=== PATIENT | female | born 1970 | race Caucasian/White ===

== ENCOUNTER 2020-08-23 16:12 | Inpatient (IN) | payer OTHER, SELFPAY ==
[2020-08-23 16:27] VITALS: BP 138/92; BP 151/91; PULSE 107; PULSE 99; RESP 28; TEMP 36.8; O2SAT 100; O2SAT 97; BMI 35.3
--- NOTE | 2020-08-23 16:34 | ECG_ITS ---
Test Reason : SOB Blood Pressure : / mmHG Vent. Rate : 099 BPM Atrial Rate : 099 BPM P-R Int : 164 ms QRS Dur : 080 ms QT Int : 310 ms P-R-T Axes : 065 044 083 degrees QTc Int : 397 ms Normal sinus rhythm Normal ECG No previous ECGs available Referred By: Zunilda Pinto Electronically Signed By:CARMINE CONNELLY MD
--- NOTE | 2020-08-23 16:34 | XR_ITS ---
EXAMINATION: XR CHEST CLINICAL INFORMATION: Shortness of breath COMPARISON: Chest x-ray 08/01/2011 TECHNIQUE: Frontal view of the chest was obtained. FINDINGS: Cardiac silhouette is normal in size. The lungs are well aerated. There is no lobar consolidation. No pleural effusion or pneumothorax. Fusion hardware of the cervical spine. XR/XR chest 1V IMPRESSION: No acute pulmonary pathology.
--- NOTE | 2020-08-23 16:37 | ED.URI ---
HPI - URI/Sore Throat General Chief Complaint: Upper Respiratory Symptoms Stated Complaint: sobweakness Time Seen by Provider: 08/23/20 16:23 Source: patient Mode of arrival: ambulatory Limitations: no limitations History of Present Illness HPI Narrative: Patient comes to emergency room complaining of weight loss, shortness of breath, abdominal pain. Patient states she has been having shortness of breath for a day. patient states all of her symptoms have gradually been getting worse since November. Unfortunately, November of this year patient's filudine . per EMS, all her vitals were stable on arrival, at this time 100% O2 sat . Patient states that she is compliant with her medication, patient takes Trulicity, insulin, and Jardiance (empagliflozin). patient states she recently had to switch primary care physicians, and she was unable to get any medicine for the last 4 days Related Data Home Medications Medication Instructions Recorded Confirmed Amitex 08/23/20 Jardiance 08/23/20 08/23/20 metformin 08/23/20 Allergies Allergy/AdvReac Type Severity Reaction Status Date / Time baclofen [BACLOFEN] Allergy Unknown CAN'T Unverified 06/25/20 15:31 STAND, MEMORY LOSS, memory loss lisinopril Allergy Unknown increased Verified 05/26/20 00:00 creatinine? Baclofen Allergy Unknown mental Uncoded 05/26/20 00:00 status Review of Systems Review of Systems: Constitutional : No Weight loss, No Fever, No Chills, No Night Sweats, No Fatigue, No Malaise, decreased p.o. intake history ENT/Mouth : No Hearing loss, No Ear Pain, No Nasal Congestion, No Sinus Pain, No Hoarseness, No sore throat, No Rhinorrhea, No Swallowing Difficulty Eyes: No Eye Pain, No Swelling, No Redness, No Foreign Body, No Discharge, No Vision Changes Cardiovascular : No Chest Pain, No SOB, No Dyspnea on Exertion, No Orthopnea, No Edema, No Palpitations Respiratory : No Cough, No Sputum, No Wheezing, No Smoke Exposure, patient complaining feeling short of breath Gastrointestinal : No Nausea, No Vomiting, No Diarrhea, No Constipation, No abdominal Pain, No Hematochezia, No Melena Genitourinary : no irregular bleeding, No Dysuria, No Urinary Frequency, No Hematuria, No Urinary Incontinence, No Urgency, No Flank Pain, No Urinary Flow Changes, No Hesitancy Musculoskeletal : No joint pain, No Myalgias, No Joint Swelling Skin : No Skin Lesions, No rash Neuro : No Weakness, No Numbness, No Paresthesias, No Loss of Consciousness, No Dizziness, No Headache Psych : No Anxiety/Panic, No Depression, No SI/HI/AH/VH, No Social Issues, Heme/Lymph: No Bruising, No Bleeding,No Lymphadenopathy Endocrine : No Polyuria, No Polydipsia, No Temperature Intolerance [facility] Past Medical History Medical History Arthritis Diabetes mellitus, type 2 Sleep apnea Surgical History (Updated 08/23/20 @ 16:33 by Lenny Young) Hx laparoscopic cholecystectomy Social History Social History Smoked in Last 30 Days: No Use of substances other than those prescribed or required for medical reasons: No Advance Directives: No Advance Directives Information Provided: Yes Physical Exam Vital Signs: Vital Signs: Last Vital Signs Temp 98.3 F 08/23/20 16:27 Pulse 92 08/23/20 17:30 Resp 25 H 08/23/20 17:30 BP 167/92 H 08/23/20 17:30 Pulse Ox 100 08/23/20 17:30 Body Mass Index 35.3 Appearance: Alert. Oriented X3. No acute distress, seems anxious Eyes: Pupils equal, round and reactive to light. ENT: Pharynx normal. Neck: Normal inspection. Neck supple. No lymph nodes noted. No crepitus CVS: Normal heart rate and rhythm. Pulses normal. Normal S1 and S2 Respiratory: No respiratory distress. Breath sounds normal. No Wheezing. No rales Abdomen: Soft and nontender. No rigidity. No distention. good BS x4 Skin: Skin warm and dry. Normal skin color. Normal skin turgor. Extremities: No lower extremity edema. No lower extremity edema. No Lacerations. No Rash Neuro: Oriented X 3. No motor deficit. No sensory deficit. Moving all extermities. No slurred speech. Course Course Course Narrative: discussed the labs with the patient, patient is in diabetic ketoacidosis. White blood cell count is 14.8, lactic acid 1.2, sepsis is not suspected. I discussed the patient with Dr. Mcfadden, patient is being admitted to the intensive care unit. MDM - URI/Sore Throat Lab Data Result diagrams: 08/23/20 16:50 08/23/20 16:50 Labs: Lab Results 08/23/20 08/23/20 08/23/20 Range/Units 16:50 16:50 16:50 WBC 14.8 H (4.8-10.8) X10*3/uL RBC 5.63 H (4.20-5.50) X10*6/uL Hgb 15.6 (12.0-16.0) g/dl Hct 48.3 H (37-47) % MCV 85.8 (80-98) fL MCH 27.7 (27.0-33.0) pg MCHC 32.3 (31.0-35.0) g/dl RDW 15.5 (11.0-16.0) % Plt Count 399 (160-400) X10*3/uL MPV 8.6 L (9.4-12.3) fL Immature Gran % (Auto) 1.1 H (0.0-0.4) % Neut % (Auto) 83.4 H (45-73) % Lymph % (Auto) 9.4 L (20-40) % [place] % (Auto) 5.9 (2-11) % Eos % (Auto) 0.0 (0-4) % Baso % (Auto) 0.2 (0-2) % Lymph # (Auto) 1.4 (1.2-4.9) X10*3/uL [place] # (Auto) 0.9 (0.1-1.2) X10*3/uL Eos # (Auto) 0.0 (0.0-0.4) X10*3/uL Baso # (Auto) 0.0 (0.0-0.2) X10*3/uL Abs Immat Gran (auto) 0.17 H (0.00-0.03) X10*3/uL Absolute Neuts (auto) 12.4 H (2.0-8.3) X10*3/uL Absolute Nucleated RBC 0.000 (0.0-0.012) X10*3/uL Nucleated RBC % (auto) 0.0 (0.0-0.2) /100WBC D-Dimer NG/ML ABG pH (7.35-7.45) ABG pCO2 (32-45) mmhg ABG pO2 (83-108) mmhg ABG HCO3 (22-26) mmol/l ABG O2 Saturation % ABG Base Excess Oxygen Given Sodium Cancelled Potassium Cancelled Chloride Cancelled Carbon Dioxide Cancelled Anion Gap Cancelled BUN Cancelled Creatinine Cancelled Estim Creat Clear Calc Cancelled Estimated GFR Cancelled Random Glucose Cancelled Lactic Acid (0.5-2.0) mmol/L Calcium Cancelled Troponin I High Sens 4.3 (<3.5-17.0) ng/L Lipase (8-78) U/L Salicylates (15-30) mg/dL Acetone, Qual (Negative) COVID-19 (DEA) (Negative) COVID-19 Clin Com 08/23/20 08/23/20 08/23/20 Range/Units 16:50 16:50 16:50 WBC (4.8-10.8) X10*3/uL RBC (4.20-5.50) X10*6/uL Hgb (12.0-16.0) g/dl Hct (37-47) % MCV (80-98) fL MCH (27.0-33.0) pg MCHC (31.0-35.0) g/dl RDW (11.0-16.0) % Plt Count (160-400) X10*3/uL MPV (9.4-12.3) fL Immature Gran % (Auto) (0.0-0.4) % Neut % (Auto) (45-73) % Lymph % (Auto) (20-40) % [place] % (Auto) (2-11) % Eos % (Auto) (0-4) % Baso % (Auto) (0-2) % Lymph # (Auto) (1.2-4.9) X10*3/uL [place] # (Auto) (0.1-1.2) X10*3/uL Eos # (Auto) (0.0-0.4) X10*3/uL Baso # (Auto) (0.0-0.2) X10*3/uL Abs Immat Gran (auto) (0.00-0.03) X10*3/uL Absolute Neuts (auto) (2.0-8.3) X10*3/uL Absolute Nucleated RBC (0.0-0.012) X10*3/uL Nucleated RBC % (auto) (0.0-0.2) /100WBC D-Dimer NG/ML ABG pH (7.35-7.45) ABG pCO2 (32-45) mmhg ABG pO2 (83-108) mmhg ABG HCO3 (22-26) mmol/l ABG O2 Saturation % ABG Base Excess Oxygen Given Sodium 127 L Potassium 4.2 Chloride 102 Carbon Dioxide 5 L* Anion Gap 24 H BUN 11 Creatinine 1.51 H Estim Creat Clear Calc 44.5 Estimated GFR 37 Random Glucose 562 H* Lactic Acid (0.5-2.0) mmol/L Calcium 8.5 Troponin I High Sens (<3.5-17.0) ng/L Lipase 166 H (8-78) U/L Salicylates < 5.0 L (15-30) mg/dL Acetone, Qual Moderate H (Negative) COVID-19 (DEA) (Negative) COVID-19 Clin Com 08/23/20 08/23/20 08/23/20 Range/Units 17:59 18:24 19:30 WBC (4.8-10.8) X10*3/uL RBC (4.20-5.50) X10*6/uL Hgb (12.0-16.0) g/dl Hct (37-47) % MCV (80-98) fL MCH (27.0-33.0) pg MCHC (31.0-35.0) g/dl RDW (11.0-16.0) % Plt Count (160-400) X10*3/uL MPV (9.4-12.3) fL Immature Gran % (Auto) (0.0-0.4) % Neut % (Auto) (45-73) % Lymph % (Auto) (20-40) % [place] % (Auto) (2-11) % Eos % (Auto) (0-4) % Baso % (Auto) (0-2) % Lymph # (Auto) (1.2-4.9) X10*3/uL [place] # (Auto) (0.1-1.2) X10*3/uL Eos # (Auto) (0.0-0.4) X10*3/uL Baso # (Auto) (0.0-0.2) X10*3/uL Abs Immat Gran (auto) (0.00-0.03) X10*3/uL Absolute Neuts (auto) (2.0-8.3) X10*3/uL Absolute Nucleated RBC (0.0-0.012) X10*3/uL Nucleated RBC % (auto) (0.0-0.2) /100WBC D-Dimer 377 NG/ML ABG pH (7.35-7.45) ABG pCO2 (32-45) mmhg ABG pO2 (83-108) mmhg ABG HCO3 (22-26) mmol/l ABG O2 Saturation % ABG Base Excess Oxygen Given Sodium Potassium Chloride Carbon Dioxide Anion Gap BUN Creatinine Estim Creat Clear Calc Estimated GFR Random Glucose Lactic Acid 1.2 (0.5-2.0) mmol/L Calcium Troponin I High Sens (<3.5-17.0) ng/L Lipase (8-78) U/L Salicylates (15-30) mg/dL Acetone, Qual (Negative) COVID-19 (DEA) Negative (Negative) COVID-19 Clin Com See Note 08/23/20 Range/Units 19:30 WBC (4.8-10.8) X10*3/uL RBC (4.20-5.50) X10*6/uL Hgb (12.0-16.0) g/dl Hct (37-47) % MCV (80-98) fL MCH (27.0-33.0) pg MCHC (31.0-35.0) g/dl RDW (11.0-16.0) % Plt Count (160-400) X10*3/uL MPV (9.4-12.3) fL Immature Gran % (Auto) (0.0-0.4) % Neut % (Auto) (45-73) % Lymph % (Auto) (20-40) % [place] % (Auto) (2-11) % Eos % (Auto) (0-4) % Baso % (Auto) (0-2) % Lymph # (Auto) (1.2-4.9) X10*3/uL [place] # (Auto) (0.1-1.2) X10*3/uL Eos # (Auto) (0.0-0.4) X10*3/uL Baso # (Auto) (0.0-0.2) X10*3/uL Abs Immat Gran (auto) (0.00-0.03) X10*3/uL Absolute Neuts (auto) (2.0-8.3) X10*3/uL Absolute Nucleated RBC (0.0-0.012) X10*3/uL Nucleated RBC % (auto) (0.0-0.2) /100WBC D-Dimer NG/ML ABG pH 7.17 L* (7.35-7.45) ABG pCO2 12 L* (32-45) mmhg ABG pO2 129 H (83-108) mmhg ABG HCO3 4 L (22-26) mmol/l ABG O2 Saturation 98.8 % ABG Base Excess -21.9 Oxygen Given ROOM AIR Sodium Potassium Chloride Carbon Dioxide Anion Gap BUN Creatinine Estim Creat Clear Calc Estimated GFR Random Glucose Lactic Acid (0.5-2.0) mmol/L Calcium Troponin I High Sens (<3.5-17.0) ng/L Lipase (8-78) U/L Salicylates (15-30) mg/dL Acetone, Qual (Negative) COVID-19 (DEA) (Negative) COVID-19 Clin Com Critical Care Time Critical Care Time Total Critical Care Time: 60 Discharge Plan Discharge Clinical Impression: Diabetic ketoacidosis associated with type 2 diabetes mellitus Patient Disposition: Admitted As Inpatient Prescriptions: No Action Amitex RF: 0 Jardiance RF: 0 metformin RF: 0
[2020-08-23 16:58] LABS: Basophils Percent Auto 0.2 % (0-2); Hematocrit 48.3 % (37-47); Hemoglobin 15.6 g/dl (12.0-16.0); Imm Gran Abs Auto 0.17 X10*3/uL (0.00-0.03); Imm Gran Pct Auto 1.1 % (0.0-0.4); Lymphocytes Absolute Auto 1.4 X10*3/uL (1.2-4.9); Lymphocytes Percent Auto 9.4 % (20-40); MANUAL DIFF FLAG NO; Mean Corpuscular HGB Conc 32.3 g/dl (31.0-35.0); Mean Corpuscular Hemoglobin 27.7 pg (27.0-33.0); Mean Corpuscular Volume 85.8 fL (80-98); Mean Platelet Volume 8.6 fL (9.4-12.3); Monocytes Absolute Auto 0.9 X10*3/uL (0.1-1.2); Monocytes Percent Auto 5.9 % (2-11); Neutrophils Absolute Auto 12.4 X10*3/uL (2.0-8.3); Neutrophils Percent Auto 83.4 % (45-73); Platelet Count 399 X10*3/uL (160-400); Red Blood Count 5.63 X10*6/uL (4.20-5.50); Red Cell Distribution Width 15.5 % (11.0-16.0); White Blood Count 14.8 X10*3/uL (4.8-10.8)
[2020-08-23 17:25] LABS: Troponin-I High Sensitivity 4.3 ng/L (<3.5-17.0)
[2020-08-23 17:30] VITALS: BP 167/92; PULSE 92; RESP 25; O2SAT 100
[2020-08-23 17:52] LABS: Anion Gap 24 (12-20); Blood Urea Nitrogen 11 mg/dL (9-16); Calcium 8.5 mg/dL (8.4-10.2); Carbon Dioxide 5 mmol/L (22-29); Chloride 102 mmol/L (96-108); Creatinine Clr Calc Pharmacy 44.5; Estimated Glomerular Filt Rate 37; Glucose Random 562 mg/dL (60-115); Lipase 166 U/L (8-78); Potassium 4.2 mmol/l (3.3-5.1); Sodium 127 mmol/L (135-145)
[2020-08-23] MEDS: Insulin Regular, Human 100 UNIT/ML 3 ML VIAL 10 UNIT IVPUSH (18:12)
[2020-08-23] MEDS: Sodium Bicarbonate 8.4% 50 MEQ/50 ML VIAL IVPUSH ×2 (18:12→22:34)
[2020-08-23] MEDS: 0.9 % Sodium Chloride 1,000 ML 999 ML IVCONT ×3 (18:13→20:32)
[2020-08-23 18:20] LABS: D Dimer 377 NG/ML
[2020-08-23 18:44] LABS: COVID-19 Test Negative (Negative)
[2020-08-23 19:13] LABS: Acetone, serum QL Moderate (Negative)
[2020-08-23 19:22] LABS: Salicylate < 5.0 mg/dL (15-30)
[2020-08-23 19:34] VITALS: O2SAT 100
[2020-08-23 19:38] LABS: Pt Ventilation O2% ROOM AIR
[2020-08-23 19:40] LABS: Base Excess ABG -21.9; Blood Gas Serial # 5396; HCO3 ABG 4 mmol/l (22-26); Oxygen Saturation ABG 98.8 %; PO2 ABG 129 mmhg (83-108)
[2020-08-23 19:42] LABS: pH ABG 7.17 (7.35-7.45)
[2020-08-23 19:43] LABS: ABG PCO2 12 mmhg (32-45)
[2020-08-23 20:11] LABS: Lactic Acid 1.2 mmol/L (0.5-2.0)
--- NOTE | 2020-08-23 20:16 | PC.NURSE ---
at bedside. Pharm called for Bicarb.
[2020-08-23] MEDS: Insulin Regular/NS 100 UNIT/100 ML PLAST..BAG 7 UNIT IVCONT (20:30)
[2020-08-23] MEDS: oxyCODONE HCl Immed Release 5 MG TABLET PO (20:30)
--- NOTE | 2020-08-23 20:35 | PC.NURSE ---
POC noted to be 297 mg/dl. Per MD Pinto to begin insulin @ 5 units/hr, verified with Delphine Sims RN. Pt also medicated per EMAR with IVF and Roxicodone. Awaiting bicarb from pharm. Pt aware of plan to admit to ICU.
[2020-08-23 20:37] VITALS: BP 140/55; PULSE 90; RESP 28; O2SAT 100
--- NOTE | 2020-08-23 20:37 | PC.NURSE ---
ICU PA at bedside for eval.
--- NOTE | 2020-08-23 20:55 | PC.NURSE ---
BMP and CVD obtained and sent. Sodium bicarb obtained by pharmacy and hung per EMAR. Second IV line established to [facility].
--- NOTE | 2020-08-23 20:58 | P.HPCC_ITS ---
History of Present Illness Date of Service: 08/23/20 Chief Complaint: DKA HPI: Patient with underlying history of migraines, right lens eye surgery, cholecystectomy, diabetes, obesity, presented to the emergency room with complaints of 3 days worth of generalized malaise, fatigue in the form of shortness of breath, ongoing frontal headache, inability to eat and nausea without vomiting. In the emergency room, the patient was noted to have normal vital signs with session of tachypnea, her metabolic workup did reveal low sodium, high blood sugar levels and a blood gas compatible with metabolic acidosis, she does have mother amount of acetone in the urine her anion gap is 24. The patient is in DKA. Patient was started on insulin with a bolus and followed by a trip, she was given bicarbonate and started on IV fluids. Currently the patient remains hemodynamically stable and only complains of a 5/10 frontal headache despite of getting Percocet in the ER. She does have some nausea but has no vomiting, denies any abdominal pain, no chest pain or palpitations, she feels fatigued but denies any cough or sputum production, no fever chills, no genitourinary complaints. ROS: Denies visual changes, lightheadedness or dizziness, no history of seizures or strokes, no history of ear problems, no sore throat, cough or sputum production, denies chest pain, palpitations, no coronary disease, pulmonary disease, no hemoptysis, denies any melena, hematochezia, liver or kidney problems, no dysuria, hematuria, no leg swelling, no history of DVT or PE. She has no travel and has not been contact with anybody with [facility]. All other review of systems negative. Past Medical History: Migraines Diabetes Essential hypertension not on medication at this point Obesity Past Surgical History: Right eye lens replacement surgery Cholecystectomy Family history: Noncontributory Social History: Lives at home with her son, they live in a duplex, there are stairs, she uses a cane. Denies tobacco use ever, no drug use ever, admits to social drinking very small amounts. CODE STATUS: FULL CODE Baseline Functionality: Fully function, performs activities of daily living, uses a cane. Contacts or HCP: Patient's fiancee and son are her contacts Allergies: Baclofen (confusion) Home Medications: Trulicity, Jardiance, metformin unknown doses. PHYSICAL EXAM: VS: 140/55, heart rate 90, respirations 20, O2 sat 100% on room air. ?General: Alert oriented x3 no acute distress. Speaking full sentences. Speech is well articulated, thought process is coherent. Following all commands. ?Skin: Intact, no lesions, edema, erythema, clubbing or cyanosis. No ulcers. ?HEENT: Head is normocephalic, atraumatic, pupils equal round reactive to light accommodation bilaterally. Extraocular movements appear intact. Buccal mucosa is dry, Neck is supple without lymphadenopathy. ?Cardiac: Clear S1-S2, no murmurs rubs or gallops. ?Pulmonary: Clear to auscultation, no wheezes, rales or rhonchi. ?Abdomen: Protuberant, positive bowel sounds in all 4 quadrants. Soft, nontender, no rebound or guarding. ?Musculoskeletal: Moving all 4 extremities upon request a major joints, there is no crepitus or tenderness. The strength is 5/5 bilaterally and throughout all 4 extremities. Gait not assessed at this point. ?Neurologic: As above, cranial nerves 2-12 are grossly intact. No focal de ficits noted. ?Motor strength as above. ?Vascular: 2+ pulses upper and lower extremities distally. ? SIGNIFICANT LABORATORY DATA: White blood cell 14.8, hemoglobin 15.6, hematocrit 48.3 platelet count 399 there is however immature granulocytes. Sodium 127, potassium 4.2, chloride 102, carbon dioxide 5, anion gap 24, BUN 11, creatinine 1.51 (baseline 0.79) random glucose 562, calcium 8.5, lipase 166, salicylates less than 5.0, acetone moderate, but UA is clean. Blood gas shows pH of 7.17, pCO2 of 12, PO2 of 129, HC03 4, base excess-21.9. COVID negative REVIEW OF IMAGES: Chest x-ray shows no acute pulmonary disease. EKG REVIEW: Sinus rhythm ventricular rate 99 beats per minute. No ST elevations, no depressions. QTC 397. There is slight T-wave inversion in aVL, age undetermined changes. No comparison. ASSESSMENT AND PLAN: 1. Acute DKA 2. Clinical dehydration and hemoconcentration 3. Metabolic acidosis due to 1. 4. Acute kidney injury in the setting of dehydration 5. Chronic migraine headaches, perhaps exacerbated by 1. 6. Reactive elevated lipase without epigastric abdominal complain 7. Stable essential hypertension 8. Pseudo hyponatremia due to hyperglycemia. Admit to ICU, I's and O's, vital signs, insulin drip, once blood sugar drops below 250, will switch to D5 half-normal saline, she will receive bicarbonate drip, repeat chemistries every 4 hours and replace potassium as needed, blood glucose every hour, repeat labs in the morning. Insulin drip to be discontinued once the anion gap closes. Tylenol for pain. The patient is not in lactic acidosis, I will suspect that the gap will close soon and she may be transferred out to [facility] in the am. GI PROPHYLAXIS: Oral omeprazole DVT PROPHYLAXIS: Pneumatic stockings Critical care time used for critical evaluation of this patient, diagnosis, treatment and coordination of care, review her records and documentation TOTAL CRITICAL CARE TIME 60 MIN . Patient's care was discussed in detail with Dr. Ross. He is aware of all the above as well as the plan of care for this patient. [facility] Past Medical History Medical History Arthritis Diabetes mellitus, type 2 Sleep apnea Surgical History Surgical History (Updated 08/23/20 @ 16:33 by Lenny Young) Hx laparoscopic cholecystectomy Social History Social History Smoked in Last 30 Days: No Use of substances other than those prescribed or required for medical reasons: No Advance Directives: No Advance Directives Information Provided: Yes Meds Allergies Allergy/AdvReac Type Severity Reaction Status Date / Time baclofen [BACLOFEN] Allergy Unknown CAN'T Unverified 06/25/20 15:31 STAND, MEMORY LOSS, memory loss lisinopril Allergy Unknown increased Verified 05/26/20 00:00 creatinine? Baclofen Allergy Unknown mental Uncoded 05/26/20 00:00 status Home Medications Medication Instructions Recorded Confirmed Type Jardiance 08/23/20 08/23/20 History dulaglutide [Trulicity] mg SUBCUT 08/23/20 History metformin 08/23/20 History Physical Exam Vital Signs: Vital Signs: Last Vital Signs Temp 98.3 F 08/23/20 16:27 Pulse 90 08/23/20 20:37 Resp 28 H 08/23/20 20:37 BP 140/55 H 08/23/20 20:37 Pulse Ox 100 08/23/20 20:37 Body Mass Index 35.3 Results Labs CBC and Chem 7: 08/23/20 16:50 08/23/20 20:52 Labs: Laboratory Results - last 24 hr 08/23/20 08/23/20 08/23/20 16:50 16:50 16:50 MCV 85.8 MCH 27.7 MCHC 32.3 RDW 15.5 Plt Count 399 MPV 8.6 L Immature Gran % (Auto) 1.1 H Neut % (Auto) 83.4 H Lymph % (Auto) 9.4 L [place] % (Auto) 5.9 Eos % (Auto) 0.0 Baso % (Auto) 0.2 Lymph # (Auto) 1.4 [place] # (Auto) 0.9 Eos # (Auto) 0.0 Baso # (Auto) 0.0 Abs Immat Gran (auto) 0.17 H Absolute Neuts (auto) 12.4 H Absolute Nucleated RBC 0.000 Nucleated RBC % (auto) 0.0 D-Dimer ABG pH ABG pCO2 ABG pO2 ABG HCO3 ABG O2 Saturation ABG Base Excess Oxygen Given Anion Gap Cancelled Estim Creat Clear Calc Cancelled Estimated GFR Cancelled Random Glucose Cancelled Lactic Acid Calcium Cancelled Troponin I High Sens 4.3 Lipase Salicylates Acetone, Qual COVID-19 (DEA) COVID-19 [employer] 08/23/20 08/23/20 08/23/20 16:50 16:50 16:50 MCV MCH MCHC RDW Plt Count MPV Immature Gran % (Auto) Neut % (Auto) Lymph % (Auto) [place] % (Auto) Eos % (Auto) Baso % (Auto) Lymph # (Auto) [place] # (Auto) Eos # (Auto) Baso # (Auto) Abs Immat Gran (auto) Absolute Neuts (auto) Absolute Nucleated RBC Nucleated RBC % (auto) D-Dimer ABG pH ABG pCO2 ABG pO2 ABG HCO3 ABG O2 Saturation ABG Base Excess Oxygen Given Anion Gap 24 H Estim Creat Clear Calc 44.5 Estimated GFR 37 Random Glucose 562 H* Lactic Acid Calcium 8.5 Troponin I High Sens Lipase 166 H Salicylates < 5.0 L Acetone, Qual Moderate H COVID-19 (DEA) COVID-19 Clin Com 08/23/20 08/23/20 08/23/20 17:59 18:24 19:30 MCV MCH MCHC RDW Plt Count MPV Immature Gran % (Auto) Neut % (Auto) Lymph % (Auto) [place] % (Auto) Eos % (Auto) Baso % (Auto) Lymph # (Auto) [place] # (Auto) Eos # (Auto) Baso # (Auto) Abs Immat Gran (auto) Absolute Neuts (auto) Absolute Nucleated RBC Nucleated RBC % (auto) D-Dimer 377 ABG pH ABG pCO2 ABG pO2 ABG HCO3 ABG O2 Saturation ABG Base Excess Oxygen Given Anion Gap Estim Creat Clear Calc Estimated GFR Random Glucose Lactic Acid 1.2 Calcium Troponin I High Sens Lipase Salicylates Acetone, Qual COVID-19 (DEA) Negative COVID-19 Clin Com See Note 08/23/20 19:30 MCV MCH MCHC RDW Plt Count MPV Immature Gran % (Auto) Neut % (Auto) Lymph % (Auto) [place] % (Auto) Eos % (Auto) Baso % (Auto) Lymph # (Auto) [place] # (Auto) Eos # (Auto) Baso # (Auto) Abs Immat Gran (auto) Absolute Neuts (auto) Absolute Nucleated RBC Nucleated RBC % (auto) D-Dimer ABG pH 7.17 L* ABG pCO2 12 L* ABG pO2 129 H ABG HCO3 4 L ABG O2 Saturation 98.8 ABG Base Excess -21.9 Oxygen Given ROOM AIR Anion Gap Estim Creat Clear Calc Estimated GFR Random Glucose Lactic Acid Calcium Troponin I High Sens Lipase Salicylates Acetone, Qual COVID-19 (DEA) COVID-19 Clin Com Imaging Radiologist's Impressions: Impressions Chest X-Ray 08/23/20 16:34 IMPRESSION: No acute pulmonary pathology.
[2020-08-23] MEDS: Sodium Bicarbonate 8.4% 100 MEQ in Dextrose 5 % 900 ML IV (21:00)
--- NOTE | 2020-08-23 21:13 | PC.NURSE ---
2100 POC noted to be 278 mg/dl. Insulin infusion remains at 5 units/hr.
[2020-08-23 21:14] LABS: COVID-19 Test Negative (Negative); IDNOW Serial# 9DD0AD1C
[2020-08-23 21:35] LABS: Anion Gap 23 (12-20); Blood Urea Nitrogen 9 mg/dL (9-16); Calcium 7.8 mg/dL (8.4-10.2); Carbon Dioxide 5 mmol/L (22-29); Chloride 108 mmol/L (96-108); Creatinine Clr Calc Pharmacy 57.5; Estimated Glomerular Filt Rate 49; Glucose Random 329 mg/dL (60-115); Potassium 3.7 mmol/l (3.3-5.1); Sodium 132 mmol/L (135-145)
--- NOTE | 2020-08-23 22:08 | PC.NURSE ---
Pt sleeping in bed at this time in NAD, RR 22/MIN. 2200 POC 283 mg/dl. Awaiting room assignment.
--- NOTE | 2020-08-23 22:16 | PC.NURSE ---
Per PA from ICU, to increase Insulin to 7 units/hr. PA also ordering 1 amp of bicarb IVP and 40 MEQ of Potassium PO. Awaiting orders. Awaiting room assignment for ICU.
--- NOTE | 2020-08-23 22:28 | PC.NURSE ---
Report given to SKILLED NURSING PROFESSIONAL Pallavi. Pt ready for transport to room 260.
[2020-08-23] MEDS: Potassium Chloride ER 20 MEQ TAB.ER.PRT 40 MEQ PO (22:32)
[2020-08-23 22:38] VITALS: BP 116/70; PULSE 90; RESP 24; O2SAT 100
--- NOTE | 2020-08-23 22:49 | PC.NURSE ---
Pt medicated with Bicarb and Potassium per EMAR. Pt ready for transport to ICU but awaiting admission order per tableau lead. VSS, POC noted to be 256 mg/dl.
[2020-08-23 23:25] VITALS: BP 125/68; PULSE 79; RESP 20; TEMP 36.5; O2SAT 100
[2020-08-23] MEDS: Lactated Ringers 1,000 ML 80 ML IVCONT (23:33)
[2020-08-23] MEDS: 0.9 % Sodium Chloride Flush 3 ML SYRINGE IVFLUSH (23:34)
[2020-08-23 23:41] VITALS: BMI 35.6
[2020-08-23 23:59] LABS: Glucose, Whole Blood 243 mg/dL (60-115)
[2020-08-24] VITALS (24 sets, daily range): BP systolic 110–155; BP diastolic 55–81; PULSE 75–98; RESP 9–23; TEMP 36.3–36.8; O2SAT 98–100; BMI 36.1
[2020-08-24 00:44] LABS: Glucose Urine UA 500 MG/DL (NEG); Leukocyte Esterase Urine NEG (NEG); Nitrite Urine NEG (NEG); Specific Gravity - Urine 1.025 (1.005-1.025); Urine Blood 1+ (NEG); Urine Ketones >=80 MG/DL (NEG); Urine Protein 1+ MG/DL (NEG-TRACE)
[2020-08-24 00:45] LABS: Appearance Urine CLEAR; Color Urine YELLOW
[2020-08-24 00:57] LABS: Bacteria Urine TRACE /LPF; Hyaline Casts Urine 0-2 /LPF; Mucus Urine 1+ /LPF; Squamous Epithelial Cell Urine 2+ /LPF; UACC CULT YES
[2020-08-24 01:01] LABS: Glucose, Whole Blood 225 mg/dL (60-115)
[2020-08-24 01:29] LABS: Anion Gap 16 (12-20); Carbon Dioxide 10 mmol/L (22-29); Chloride 110 mmol/L (96-108); Potassium 2.9 mmol/l (3.3-5.1); Sodium 133 mmol/L (135-145)
[2020-08-24] MEDS: Sodium Bicarbonate 8.4% 50 MEQ/50 ML VIAL IVPUSH (01:30)
[2020-08-24 02:05] LABS: Glucose, Whole Blood 214 mg/dL (60-115)
[2020-08-24] MEDS: Potassium Chloride/H20 10 MEQ/100 ML PIGGYBACK 100 MEQ IV ×4 (02:05→05:11)
[2020-08-24 03:12] LABS: Glucose, Whole Blood 226 mg/dL (60-115)
[2020-08-24 05:22] LABS: Glucose, Whole Blood 209 mg/dL (60-115)
[2020-08-24 05:22] LABS: Glucose, Whole Blood 220 mg/dL (60-115)
[2020-08-24 05:47] LABS: MANUAL DIFF FLAG NO
[2020-08-24 05:50] LABS: Basophils Percent Auto 0.3 % (0-2); Eosinophils Percent Auto 0.3 % (0-4); Hematocrit 37.7 % (37-47); Hemoglobin 12.5 g/dl (12.0-16.0); Imm Gran Abs Auto 0.06 X10*3/uL (0.00-0.03); Imm Gran Pct Auto 0.5 % (0.0-0.4); Lymphocytes Percent Auto 17.1 % (20-40); Mean Corpuscular HGB Conc 33.2 g/dl (31.0-35.0); Mean Corpuscular Hemoglobin 27.5 pg (27.0-33.0); Mean Corpuscular Volume 82.9 fL (80-98); Monocytes Absolute Auto 1.2 X10*3/uL (0.1-1.2); Monocytes Percent Auto 10.2 % (2-11); Neutrophils Absolute Auto 8.3 X10*3/uL (2.0-8.3); Neutrophils Percent Auto 71.6 % (45-73); Platelet Count 251 X10*3/uL (160-400); Red Blood Count 4.55 X10*6/uL (4.20-5.50); Red Cell Distribution Width 15.2 % (11.0-16.0); White Blood Count 11.6 X10*3/uL (4.8-10.8)
[2020-08-24] MEDS: Flu Vacc QS2020-21(6mos up)/PF 0.5 ML SYRINGE IM (06:08)
[2020-08-24 06:14] LABS: Anion Gap 14 (12-20); Blood Urea Nitrogen 7 mg/dL (9-16); Carbon Dioxide 15 mmol/L (22-29); Chloride 107 mmol/L (96-108); Creatinine Clr Calc Pharmacy 83.4; Estimated Glomerular Filt Rate > 60; Glucose Random 236 mg/dL (60-115); Sodium 133 mmol/L (135-145)
[2020-08-24 06:15] LABS: Glucose, Whole Blood 194 mg/dL (60-115)
--- NOTE | 2020-08-24 06:19 | PC.NURSE ---
PT ADMITTED TO ICU AT APPROX 2320. PT A&OX4, LETHARGIC. SLEPT MOST OF NIGHTS. PA AWARE OF LABS, 40 IV KCL GIVEN, 2 AMPS OF BICARB GIVEN. 1L BICARB GTT GIVEN. CURRENTLY ON LR AT 100 ML/HR PER PA. INSULIN TITRATED PER PA, SEE DRUG TITRATION. OOB TO COMMODE, APPROX 1L URINE OUT. U/A SENT. SKIN ISSUES.
[2020-08-24 06:59] LABS: Glucose, Whole Blood 197 mg/dL (60-115)
--- NOTE | 2020-08-24 07:05 | P.PNCC_ITS ---
Subjective Subjective Date of Service: 08/24/20 Interval History: 49-year-old type 2 diabetic presents with diabetic ketoacidosis gradually repairing on currently Ringer's lactate drip and remains on an IV insulin drip as well with bicarb now climbing from 4-15 mEq afebrile with no evidence of source of infection although there is a degree of pyuria with pending urine culture no eye count or left shift, but we still need a serum bicarb level to climb up at least over 21 before secure but at least will offer a diabetic diet as we continue the above therapy Physical Exam Vital Signs: Vital Signs: Last Vital Signs Temp 97.7 F 08/23/20 23:25 Pulse 77 08/24/20 07:00 Resp 22 H 08/24/20 07:00 BP 127/66 08/24/20 07:00 Pulse Ox 100 08/24/20 07:00 Body Mass Index 35.6 Const: Other: awake alert and oriented neurologic is nonfocal skin without wounds or cellulitis and no acrocyanosis nor livedo abdomen benign with no bruits no tenderness and no organomegaly chest percussed equally with no clinical pleural effusion no event tissue sounds cardiac exam with good bilateral carotid upstrokes and no bruits and no neck vein distension and normal S1 and normal S2 no gallops Objective Data Labs CBC & Chem 7: 08/24/20 05:39 08/24/20 10:26 Labs: Laboratory Results - last 24 hr 08/23/20 08/23/20 08/23/20 16:50 16:50 16:50 WBC 14.8 H RBC 5.63 H Hgb 15.6 Hct 48.3 H MCV 85.8 MCH 27.7 MCHC 32.3 RDW 15.5 Plt Count 399 MPV 8.6 L Immature Gran % (Auto) 1.1 H Neut % (Auto) 83.4 H Lymph % (Auto) 9.4 L [place] % (Auto) 5.9 Eos % (Auto) 0.0 Baso % (Auto) 0.2 Lymph # (Auto) 1.4 [place] # (Auto) 0.9 Eos # (Auto) 0.0 Baso # (Auto) 0.0 Abs Immat Gran (auto) 0.17 H Absolute Neuts (auto) 12.4 H Absolute Nucleated RBC 0.000 Nucleated RBC % (auto) 0.0 D-Dimer ABG pH ABG pCO2 ABG pO2 ABG HCO3 ABG O2 Saturation ABG Base Excess Oxygen Given Sodium Cancelled Potassium Cancelled Chloride Cancelled Carbon Dioxide Cancelled Anion Gap Cancelled BUN Cancelled Creatinine Cancelled Estim Creat Clear Calc Cancelled Estimated GFR Cancelled POC Glucose Random Glucose Cancelled Lactic Acid Calcium Cancelled Troponin I High Sens 4.3 Lipase Urine Color Urine Appearance Urine pH Ur Specific [place] Urine Protein Urine Glucose (UA) Urine Ketones Urine Blood Urine Nitrite Ur Leukocyte Esterase Urine RBC Urine WBC Ur Squamous Epith Cells Urine Bacteria Hyaline Casts Urine Mucus Salicylates Acetone, Qual COVID-19 (DEA) COVID-19 CDNlion 08/23/20 08/23/20 08/23/20 16:50 16:50 16:50 WBC RBC Hgb Hct MCV MCH MCHC RDW Plt Count MPV Immature Gran % (Auto) Neut % (Auto) Lymph % (Auto) [place] % (Auto) Eos % (Auto) Baso % (Auto) Lymph # (Auto) [place] # (Auto) Eos # (Auto) Baso # (Auto) Abs Immat Gran (auto) Absolute Neuts (auto) Absolute Nucleated RBC Nucleated RBC % (auto) D-Dimer ABG pH ABG pCO2 ABG pO2 ABG HCO3 ABG O2 Saturation ABG Base Excess Oxygen Given Sodium 127 L Potassium 4.2 Chloride 102 Carbon Dioxide 5 L* Anion Gap 24 H BUN 11 Creatinine 1.51 H Estim Creat Clear Calc 44.5 Estimated GFR 37 POC Glucose Random Glucose 562 H* Lactic Acid Calcium 8.5 Troponin I High Sens Lipase 166 H Urine Color Urine Appearance Urine pH Ur Specific [place] Urine Protein Urine Glucose (UA) Urine Ketones Urine Blood Urine Nitrite Ur Leukocyte Esterase Urine RBC Urine WBC Ur Squamous Epith Cells Urine Bacteria Hyaline Casts Urine Mucus Salicylates < 5.0 L Acetone, Qual Moderate H COVID-19 (DEA) COVID-[facility] 08/23/20 08/23/20 08/23/20 17:59 18:24 19:30 WBC RBC Hgb Hct MCV MCH MCHC RDW Plt Count MPV Immature Gran % (Auto) Neut % (Auto) Lymph % (Auto) [place] % (Auto) Eos % (Auto) Baso % (Auto) Lymph # (Auto) [place] # (Auto) Eos # (Auto) Baso # (Auto) Abs Immat Gran (auto) Absolute Neuts (auto) Absolute Nucleated RBC Nucleated RBC % (auto) D-Dimer 377 ABG pH ABG pCO2 ABG pO2 ABG HCO3 ABG O2 Saturation ABG Base Excess Oxygen Given Sodium Potassium Chloride Carbon Dioxide Anion Gap BUN Creatinine Estim Creat Clear Calc Estimated GFR POC Glucose Random Glucose Lactic Acid 1.2 Calcium Troponin I High Sens Lipase Urine Color Urine Appearance Urine pH Ur Specific [place] Urine Protein Urine Glucose (UA) Urine Ketones Urine Blood Urine Nitrite Ur Leukocyte Esterase Urine RBC Urine WBC Ur Squamous Epith Cells Urine Bacteria Hyaline Casts Urine Mucus Salicylates Acetone, Qual COVID-19 (DEA) Negative COVID-[facility] See Note 08/23/20 08/23/20 08/23/20 19:30 20:52 20:52 WBC RBC Hgb Hct MCV MCH MCHC RDW Plt Count MPV Immature Gran % (Auto) Neut % (Auto) Lymph % (Auto) [place] % (Auto) Eos % (Auto) Baso % (Auto) Lymph # (Auto) [place] # (Auto) Eos # (Auto) Baso # (Auto) Abs Immat Gran (auto) Absolute Neuts (auto) Absolute Nucleated RBC Nucleated RBC % (auto) D-Dimer ABG pH 7.17 L* ABG pCO2 12 L* ABG pO2 129 H ABG HCO3 4 L ABG O2 Saturation 98.8 ABG Base Excess -21.9 Oxygen Given ROOM AIR Sodium 132 L Potassium 3.7 Chloride 108 Carbon Dioxide 5 L* Anion Gap 23 H BUN 9 Creatinine 1.17 Estim Creat Clear Calc 57.5 Estimated GFR 49 POC Glucose Random Glucose 329 H D Lactic Acid Calcium 7.8 L D Troponin I High Sens Lipase Urine Color Urine Appearance Urine pH Ur Specific [place] Urine Protein Urine Glucose (UA) Urine Ketones Urine Blood Urine Nitrite Ur Leukocyte Esterase Urine RBC Urine WBC Ur Squamous Epith Cells Urine Bacteria Hyaline Casts Urine Mucus Salicylates Acetone, Qual COVID-19 (DEA) Negative [employer] See Note 08/23/20 08/24/20 08/24/20 23:28 00:09 00:53 WBC RBC Hgb Hct MCV MCH MCHC RDW Plt Count MPV Immature Gran % (Auto) Neut % (Auto) Lymph % (Auto) [place] % (Auto) Eos % (Auto) Baso % (Auto) Lymph # (Auto) [place] # (Auto) Eos # (Auto) Baso # (Auto) Abs Immat Gran (auto) Absolute Neuts (auto) Absolute Nucleated RBC Nucleated RBC % (auto) D-Dimer ABG pH ABG pCO2 ABG pO2 ABG HCO3 ABG O2 Saturation ABG Base Excess Oxygen Given Sodium 133 L Potassium 2.9 L D Chloride 110 H Carbon Dioxide 10 L* D Anion Gap 16 BUN Creatinine Estim Creat Clear Calc Estimated GFR POC Glucose 243 H Random Glucose Lactic Acid Calcium Troponin I High Sens Lipase Urine Color YELLOW Urine Appearance CLEAR Urine pH 6.0 Ur Specific [place] 1.025 Urine Protein 1+ H Urine Glucose (UA) 500 H Urine Ketones >=80 Urine Blood 1+ H Urine Nitrite NEG Ur Leukocyte Esterase NEG Urine RBC 1-4 Urine WBC 15-29 H Ur Squamous Epith Cells 2+ Urine Bacteria TRACE Hyaline Casts 0-2 Urine Mucus 1+ Salicylates Acetone, Qual COVID-19 (DEA) COVID-19 CDNlion 08/24/20 08/24/20 08/24/20 00:55 02:01 03:09 WBC RBC Hgb Hct MCV MCH MCHC RDW Plt Count MPV Immature Gran % (Auto) Neut % (Auto) Lymph % (Auto) [place] % (Auto) Eos % (Auto) Baso % (Auto) Lymph # (Auto) [place] # (Auto) Eos # (Auto) Baso # (Auto) Abs Immat Gran (auto) Absolute Neuts (auto) Absolute Nucleated RBC Nucleated RBC % (auto) D-Dimer ABG pH ABG pCO2 ABG pO2 ABG HCO3 ABG O2 Saturation ABG Base Excess Oxygen Given Sodium Potassium Chloride Carbon Dioxide Anion Gap BUN Creatinine Estim Creat Clear Calc Estimated GFR POC Glucose 225 H 214 H 226 H Random Glucose Lactic Acid Calcium Troponin I High Sens Lipase Urine Color Urine Appearance Urine pH Ur Specific [place] Urine Protein Urine Glucose (UA) Urine Ketones Urine Blood Urine Nitrite Ur Leukocyte Esterase Urine RBC Urine WBC Ur Squamous Epith Cells Urine Bacteria Hyaline Casts Urine Mucus Salicylates Acetone, Qual COVID-19 (DEA) COVID-19 Clin Com 08/24/20 08/24/20 08/24/20 04:18 05:18 05:39 WBC 11.6 H RBC 4.55 Hgb 12.5 Hct 37.7 D MCV 82.9 MCH 27.5 MCHC 33.2 RDW 15.2 Plt Count 251 D MPV 9.0 L Immature Gran % (Auto) 0.5 H Neut % (Auto) 71.6 Lymph % (Auto) 17.1 L [place] % (Auto) 10.2 Eos % (Auto) 0.3 Baso % (Auto) 0.3 Lymph # (Auto) 2.0 [place] # (Auto) 1.2 Eos # (Auto) 0.0 Baso # (Auto) 0.0 Abs Immat Gran (auto) 0.06 H Absolute Neuts (auto) 8.3 Absolute Nucleated RBC 0.000 Nucleated RBC % (auto) 0.0 D-Dimer ABG pH ABG pCO2 ABG pO2 ABG HCO3 ABG O2 Saturation ABG Base Excess Oxygen Given Sodium Potassium Chloride Carbon Dioxide Anion Gap BUN Creatinine Estim Creat Clear Calc Estimated GFR POC Glucose 209 H 220 H Random Glucose Lactic Acid Calcium Troponin I High Sens Lipase Urine Color Urine Appearance Urine pH Ur Specific [place] Urine Protein Urine Glucose (UA) Urine Ketones Urine Blood Urine Nitrite Ur Leukocyte Esterase Urine RBC Urine WBC Ur Squamous Epith Cells Urine Bacteria Hyaline Casts Urine Mucus Salicylates Acetone, Qual COVID-19 (DEA) COVID-19 CDNlion 08/24/20 08/24/20 08/24/20 05:39 06:06 06:55 WBC RBC Hgb Hct MCV MCH MCHC RDW Plt Count MPV Immature Gran % (Auto) Neut % (Auto) Lymph % (Auto) [place] % (Auto) Eos % (Auto) Baso % (Auto) Lymph # (Auto) [place] # (Auto) Eos # (Auto) Baso # (Auto) Abs Immat Gran (auto) Absolute Neuts (auto) Absolute Nucleated RBC Nucleated RBC % (auto) D-Dimer ABG pH ABG pCO2 ABG pO2 ABG HCO3 ABG O2 Saturation ABG Base Excess Oxygen Given Sodium 133 L Potassium 3.0 L Chloride 107 Carbon Dioxide 15 L Anion Gap 14 BUN 7 L Creatinine 0.81 Estim Creat Clear Calc 83.4 Estimated GFR > 60 POC Glucose 194 H 197 H Random Glucose 236 H Lactic Acid Calcium 8.0 L Troponin I High Sens Lipase Urine Color Urine Appearance Urine pH Ur Specific [place] Urine Protein Urine Glucose (UA) Urine Ketones Urine Blood Urine Nitrite Ur Leukocyte Esterase Urine RBC Urine WBC Ur Squamous Epith Cells Urine Bacteria Hyaline Casts Urine Mucus Salicylates Acetone, Qual COVID-19 (DEA) COVID-19 Clin Com Progress Note: A&P Assessment and plan (1) Diabetic ketoacidosis associated with type 2 diabetes mellitus: Status: Acute (2) Hypokalemia due to loss of potassium: Status: Acute Assessment and Plan: with continued bicarb deficit and hypokalemia on continuing both aggressive potassium replacement as well as insulin drip and will continue every several hours to monitor for repletion of both Time Spent With Patient Time: Total time spent is greater than 50% in coordination of care (as documented) at patient's floor/unit and/or counseling patient: Total time spent with greater than 50% in coordination of care (as documented) at patient's floor/unit and/or counseling patient:: 40
[2020-08-24 07:49] LABS: Glucose, Whole Blood 256 mg/dL (60-115)
[2020-08-24 07:50] LABS: Glucose, Whole Blood 283 mg/dL (60-115)
[2020-08-24 07:51] LABS: Glucose, Whole Blood 281 mg/dL (60-115)
[2020-08-24 07:55] LABS: Glucose, Whole Blood 278 mg/dL (60-115)
[2020-08-24 07:56] LABS: Glucose, Whole Blood 297 mg/dL (60-115)
[2020-08-24 07:57] LABS: Glucose, Whole Blood 297 mg/dL (60-115)
[2020-08-24] MEDS: 0.9 % Sodium Chloride Flush 3 ML SYRINGE IVFLUSH ×2 (08:07→15:55)
[2020-08-24 08:12] LABS: Glucose, Whole Blood 197 mg/dL (60-115)
[2020-08-24] MEDS: Potassium Chloride ER 20 MEQ TAB.ER.PRT 40 MEQ PO ×3 (08:42→22:07)
[2020-08-24 10:10] LABS: Glucose, Whole Blood 198 mg/dL (60-115)
[2020-08-24 10:10] LABS: Glucose, Whole Blood 180 mg/dL (60-115)
[2020-08-24] MEDS: Lactated Ringers 1,000 ML 125 ML IVCONT (10:10)
[2020-08-24 10:39] LABS: PCO2 VBG 29 mmhg; PO2 VBG 43 mmhg; pH VBG 7.38 (7.32-7.43)
[2020-08-24 10:40] LABS: Base Excess VBG -7.2 mmol/L; HCO3 VBG 17 mmol/L; Oxygen Saturation VBG 87.3 %
[2020-08-24 11:00] LABS: Blood Urea Nitrogen 6 mg/dL (9-16); Calcium 8.3 mg/dL (8.4-10.2); Creatinine Clr Calc Pharmacy 86.2; Estimated Glomerular Filt Rate > 60; Glucose Random 220 mg/dL (60-115)
[2020-08-24 11:02] LABS: Glucose, Whole Blood 219 mg/dL (60-115)
[2020-08-24 11:11] LABS: Anion Gap 15 (12-20); Carbon Dioxide 17 mmol/L (22-29); Chloride 107 mmol/L (96-108); Potassium 2.8 mmol/l (3.3-5.1); Sodium 136 mmol/L (135-145)
[2020-08-24] MEDS: Acetaminophen 325 MG TABLET 650 MG PO ×2 (12:02→15:54)
[2020-08-24] MEDS: KCl 40 mEq in 5% Dex/0.45% Sod 40 MEQ/1,000 ML IV.SOLN 100 MEQ IVCONT ×2 (12:05→22:08)
[2020-08-24 12:17] LABS: Glucose, Whole Blood 212 mg/dL (60-115)
[2020-08-24 13:08] LABS: Glucose, Whole Blood 236 mg/dL (60-115)
[2020-08-24 14:00] LABS: Glucose, Whole Blood 203 mg/dL (60-115)
[2020-08-24 14:26] LABS: Anion Gap 12 (12-20); Blood Urea Nitrogen 5 mg/dL (9-16); Calcium 8.4 mg/dL (8.4-10.2); Carbon Dioxide 18 mmol/L (22-29); Chloride 109 mmol/L (96-108); Creatinine Clr Calc Pharmacy 88.5; Estimated Glomerular Filt Rate > 60; Glucose Random 225 mg/dL (60-115); Potassium 2.8 mmol/l (3.3-5.1); Sodium 136 mmol/L (135-145)
--- NOTE | 2020-08-24 15:01 | MHC.CM.PN ---
Pt in ICU being managed for DKA: lethargic/sleepy: requesting CM contact next of kin, sister Janet. Per sister, pt has a long hx of noncompliance and poor self health management. Her PCP is Dr. Stewart, she has no services and would not be receptive to any per Janet. She resides with her two adult sons, drives and completes her own ADL's. Janet lives in the [facility] next door and is an RN - I check in with her everyday which is why she ended up in the hospital. At this time, the d/c plan seems to be a return to home without services but CM will follow daily for changes. Family can transport
[2020-08-24 15:32] LABS: Glucose, Whole Blood 197 mg/dL (60-115)
[2020-08-24] MEDS: Insulin Regular/NS 100 UNIT/100 ML PLAST..BAG 6 UNIT IVCONT (15:53)
[2020-08-24] MEDS: Potassium Chloride ER 20 MEQ TAB.ER.PRT PO ×3 (15:54→22:07)
[2020-08-24 17:17] LABS: Glucose, Whole Blood 174 mg/dL (60-115)
[2020-08-24] MEDS: Sodium Bicarbonate 8.4% 100 MEQ in Dextrose 5 % 900 ML IV (18:14)
[2020-08-24 19:24] LABS: Glucose, Whole Blood 168 mg/dL (60-115)
[2020-08-24 21:41] LABS: Anion Gap 11 (12-20); Blood Urea Nitrogen 4 mg/dL (9-16); Calcium 8.3 mg/dL (8.4-10.2); Carbon Dioxide 20 mmol/L (22-29); Chloride 108 mmol/L (96-108); Creatinine Clr Calc Pharmacy 94.6; Estimated Glomerular Filt Rate > 60; Glucose Random 249 mg/dL (60-115); Potassium 2.9 mmol/l (3.3-5.1); Sodium 136 mmol/L (135-145)
[2020-08-24 21:44] LABS: Glucose, Whole Blood 199 mg/dL (60-115)
[2020-08-25] MEDS: 0.9 % Sodium Chloride Flush 3 ML SYRINGE IVFLUSH ×2 (00:26→09:43)
[2020-08-25 00:33] LABS: Glucose, Whole Blood 156 mg/dL (60-115)
[2020-08-25 02:16] LABS: Glucose, Whole Blood 194 mg/dL (60-115)
[2020-08-25 04:00] VITALS: BP 112/65; PULSE 82; RESP 23; TEMP 37.1; O2SAT 99
[2020-08-25 04:01] LABS: Glucose, Whole Blood 290 mg/dL (60-115)
[2020-08-25 05:07] LABS: Glucose, Whole Blood 285 mg/dL (60-115)
[2020-08-25] MEDS: Omeprazole 40 MG CAPSULE.DR PO (05:30)
[2020-08-25 05:47] LABS: MANUAL DIFF FLAG NO
[2020-08-25 05:51] LABS: Basophils Percent Auto 0.4 % (0-2); Eosinophils Percent Auto 0.2 % (0-4); Hematocrit 37.8 % (37-47); Hemoglobin 12.2 g/dl (12.0-16.0); Imm Gran Abs Auto 0.04 X10*3/uL (0.00-0.03); Imm Gran Pct Auto 0.4 % (0.0-0.4); Lymphocytes Percent Auto 17.6 % (20-40); Mean Corpuscular HGB Conc 32.3 g/dl (31.0-35.0); Mean Corpuscular Hemoglobin 26.9 pg (27.0-33.0); Mean Corpuscular Volume 83.3 fL (80-98); Mean Platelet Volume 8.8 fL (9.4-12.3); Monocytes Absolute Auto 0.7 X10*3/uL (0.1-1.2); Monocytes Percent Auto 6.5 % (2-11); Neutrophils Absolute Auto 8.4 X10*3/uL (2.0-8.3); Neutrophils Percent Auto 74.9 % (45-73); Platelet Count 252 X10*3/uL (160-400); Red Blood Count 4.54 X10*6/uL (4.20-5.50); Red Cell Distribution Width 15.6 % (11.0-16.0); White Blood Count 11.1 X10*3/uL (4.8-10.8)
--- NOTE | 2020-08-25 06:13 | PC.NURSE ---
PT A&O X3. DENIES COMPLAINTS. SLEPT WELL OVERNIGHT. INSULIN DRIP ON CONTINUOUSLY AND POC DONE Q1-2 HR AND ADJUSTED PER ROSA ELENA BULLARD. POC 150'S-290. LYTES DRAWN AT 2100 AND K+ 2.9; SUPPLEMENT ORDERED AND PT TOOK WITHOUT DIFFICULTY PO. IV D51/2 NS WITH 40 MEQ KCL INFUS AT 100 ML/HR. REPEAT LABS DRAWN AT 0500 PENDING. PT OOB TO BEDSIDE COMMODE TO VOID AND PASSED 2 BM'S OVERNIGHT, NORMAL BROWN FORMED STOOL. PT REFUSED DIABETIC SNACK LAST NIGHT BUT DENIED NAUSEA.
[2020-08-25 06:16] LABS: Glucose, Whole Blood 254 mg/dL (60-115)
[2020-08-25 06:17] LABS: Anion Gap 16 (12-20); Blood Urea Nitrogen 4 mg/dL (9-16); Calcium 8.4 mg/dL (8.4-10.2); Carbon Dioxide 15 mmol/L (22-29); Chloride 113 mmol/L (96-108); Creatinine Clr Calc Pharmacy 89.7; Estimated Glomerular Filt Rate > 60; Glucose Random 325 mg/dL (60-115); Magnesium 1.9 mg/dL (1.6-2.6); Potassium 3.7 mmol/l (3.3-5.1); Sodium 140 mmol/L (135-145)
[2020-08-25 06:25] LABS: Phosphorus 0.9 mg/dL (2.7-4.5)
[2020-08-25] MEDS: Lactated Ringers 1,000 ML 100 ML IVCONT ×2 (06:51→17:47)
[2020-08-25 08:00] VITALS: BP 141/77; PULSE 84; RESP 16; TEMP 36.8; O2SAT 98; BMI 35.8
[2020-08-25 08:57] LABS: Glucose, Whole Blood 182 mg/dL (60-115)
[2020-08-25] MEDS: Insulin Regular/NS 100 UNIT/100 ML PLAST..BAG 7 UNIT IVCONT (09:41)
[2020-08-25 09:58] LABS: Glucose, Whole Blood 145 mg/dL (60-115)
[2020-08-25 11:08] LABS: Glucose, Whole Blood 148 mg/dL (60-115)
[2020-08-25 12:00] VITALS: BP 141/77; PULSE 89; RESP 18; TEMP 36.8; O2SAT 99
[2020-08-25 12:15] LABS: Glucose, Whole Blood 158 mg/dL (60-115)
[2020-08-25 12:39] LABS: Anion Gap 14 (12-20); Blood Urea Nitrogen 3 mg/dL (9-16); Calcium 8.4 mg/dL (8.4-10.2); Carbon Dioxide 21 mmol/L (22-29); Chloride 108 mmol/L (96-108); Creatinine Clr Calc Pharmacy 112.9; Estimated Glomerular Filt Rate > 60; Glucose Random 174 mg/dL (60-115); Potassium 3.1 mmol/l (3.3-5.1); Sodium 140 mmol/L (135-145)
[2020-08-25 13:07] LABS: Glucose, Whole Blood 226 mg/dL (60-115)
--- NOTE | 2020-08-25 13:09 | PM.CCPN ---
Subjective Subjective Date of Service: 08/25/20 Interval History: 49-year-old type 2 diabetic admitted with ketoacidosis and spent the last 2 days on IV insulin drip and needed supplementary bicarb and has now completely closed her anion gap with a serum bicarb of 21 and because of marked hypokalemia she is largely repleted still has additional doses of potassium phosphate scheduled and current potassium is 3.1 an just simply needs a recheck from her baseline phosphorus of 0.9 and at this point feel comfortable stopping her IV insulin drip and changing to both Lantus and list pro coverage Physical Exam Vital Signs: Vital Signs: Last Vital Signs Temp 98.2 F 08/25/20 12:00 Pulse 89 08/25/20 12:00 Resp 18 08/25/20 12:00 BP 141/77 H 08/25/20 12:00 Pulse Ox 99 08/25/20 12:00 Body Mass Index 35.8 Const: Other: awake alert and oriented neurologic is symmetric and nonfocal skin is intact with no decubiti I no lesions no rashes and no acrocyanosis chest percussed equally no clinical pleural effusion nor adventitious sounds cardiac exam with normal S1 normal S2 and no neck vein distension and good bilateral carotid upstrokes abdomen benign no bruits no tenderness no organomegaly Objective Data Labs CBC & Chem 7: 08/25/20 05:27 08/25/20 12:03 Labs: Laboratory Results - last 24 hr 08/24/20 08/24/20 08/24/20 13:46 13:57 15:28 WBC RBC Hgb Hct MCV MCH MCHC RDW Plt Count MPV Immature Gran % (Auto) Neut % (Auto) Lymph % (Auto) [place] % (Auto) Eos % (Auto) Baso % (Auto) Lymph # (Auto) [place] # (Auto) Eos # (Auto) Baso # (Auto) Abs Immat Gran (auto) Absolute Neuts (auto) Absolute Nucleated RBC Nucleated RBC % (auto) Sodium 136 Potassium 2.8 L Chloride 109 H Carbon Dioxide 18 L Anion Gap 12 BUN 5 L Creatinine 0.77 Estim Creat Clear Calc 88.5 Estimated GFR > 60 POC Glucose 203 H 197 H Random Glucose 225 H Calcium 8.4 Phosphorus Magnesium 08/24/20 08/24/20 08/24/20 17:13 19:19 20:50 WBC RBC Hgb Hct MCV MCH MCHC RDW Plt Count MPV Immature Gran % (Auto) Neut % (Auto) Lymph % (Auto) [place] % (Auto) Eos % (Auto) Baso % (Auto) Lymph # (Auto) [place] # (Auto) Eos # (Auto) Baso # (Auto) Abs Immat Gran (auto) Absolute Neuts (auto) Absolute Nucleated RBC Nucleated RBC % (auto) Sodium 136 Potassium 2.9 L Chloride 108 Carbon Dioxide 20 L Anion Gap 11 L BUN 4 L Creatinine 0.72 Estim Creat Clear Calc 94.6 Estimated GFR > 60 POC Glucose 174 H 168 H Random Glucose 249 H Calcium 8.3 L Phosphorus Magnesium 08/24/20 08/25/20 08/25/20 21:39 00:24 02:11 WBC RBC Hgb Hct MCV MCH MCHC RDW Plt Count MPV Immature Gran % (Auto) Neut % (Auto) Lymph % (Auto) [place] % (Auto) Eos % (Auto) Baso % (Auto) Lymph # (Auto) [place] # (Auto) Eos # (Auto) Baso # (Auto) Abs Immat Gran (auto) Absolute Neuts (auto) Absolute Nucleated RBC Nucleated RBC % (auto) Sodium Potassium Chloride Carbon Dioxide Anion Gap BUN Creatinine Estim Creat Clear Calc Estimated GFR POC Glucose 199 H 156 H 194 H Random Glucose Calcium Phosphorus Magnesium 08/25/20 08/25/20 08/25/20 03:54 05:01 05:27 WBC 11.1 H RBC 4.54 Hgb 12.2 Hct 37.8 MCV 83.3 MCH 26.9 L MCHC 32.3 RDW 15.6 Plt Count 252 MPV 8.8 L Immature Gran % (Auto) 0.4 Neut % (Auto) 74.9 H Lymph % (Auto) 17.6 L [place] % (Auto) 6.5 Eos % (Auto) 0.2 Baso % (Auto) 0.4 Lymph # (Auto) 2.0 [place] # (Auto) 0.7 Eos # (Auto) 0.0 Baso # (Auto) 0.0 Abs Immat Gran (auto) 0.04 H Absolute Neuts (auto) 8.4 H Absolute Nucleated RBC 0.000 Nucleated RBC % (auto) 0.0 Sodium Potassium Chloride Carbon Dioxide Anion Gap BUN Creatinine Estim Creat Clear Calc Estimated GFR POC Glucose 290 H 285 H Random Glucose Calcium Phosphorus Magnesium 08/25/20 08/25/20 08/25/20 05:27 06:13 08:47 WBC RBC Hgb Hct MCV MCH MCHC RDW Plt Count MPV Immature Gran % (Auto) Neut % (Auto) Lymph % (Auto) [place] % (Auto) Eos % (Auto) Baso % (Auto) Lymph # (Auto) [place] # (Auto) Eos # (Auto) Baso # (Auto) Abs Immat Gran (auto) Absolute Neuts (auto) Absolute Nucleated RBC Nucleated RBC % (auto) Sodium 140 Potassium 3.7 D Chloride 113 H Carbon Dioxide 15 L Anion Gap 16 BUN 4 L Creatinine 0.76 Estim Creat Clear Calc 89.7 Estimated GFR > 60 POC Glucose 254 H 182 H Random Glucose 325 H Calcium 8.4 Phosphorus 0.9 L* Magnesium 1.9 08/25/20 08/25/20 08/25/20 09:55 11:05 12:03 WBC RBC Hgb Hct MCV MCH MCHC RDW Plt Count MPV Immature Gran % (Auto) Neut % (Auto) Lymph % (Auto) [place] % (Auto) Eos % (Auto) Baso % (Auto) Lymph # (Auto) [place] # (Auto) Eos # (Auto) Baso # (Auto) Abs Immat Gran (auto) Absolute Neuts (auto) Absolute Nucleated RBC Nucleated RBC % (auto) Sodium 140 Potassium 3.1 L Chloride 108 Carbon Dioxide 21 L Anion Gap 14 BUN 3 L Creatinine 0.60 Estim Creat Clear Calc 112.9 Estimated GFR > 60 POC Glucose 145 H 148 H Random Glucose 174 H D Calcium 8.4 Phosphorus Magnesium 08/25/20 08/25/20 12:11 13:04 WBC RBC Hgb Hct MCV MCH MCHC RDW Plt Count MPV Immature Gran % (Auto) Neut % (Auto) Lymph % (Auto) [place] % (Auto) Eos % (Auto) Baso % (Auto) Lymph # (Auto) [place] # (Auto) Eos # (Auto) Baso # (Auto) Abs Immat Gran (auto) Absolute Neuts (auto) Absolute Nucleated RBC Nucleated RBC % (auto) Sodium Potassium Chloride Carbon Dioxide Anion Gap BUN Creatinine Estim Creat Clear Calc Estimated GFR POC Glucose 158 H 226 H Random Glucose Calcium Phosphorus Magnesium Microbiology Microbiology Results: Microbiology 08/24/20 Unknown Urine clean catch - Clean Catch Midstream Urine Culture - Final 11/15/20 19:41 Blood - Venous Blood Culture - Preliminary No growth after 24 hours. 08/23/20 19:30 Blood - Venous Blood Culture - Preliminary No growth after 24 hours. Progress Note: A&P Assessment and plan (1) Hypokalemia due to loss of potassium: Status: Acute (2) Diabetic ketoacidosis associated with type 2 diabetes mellitus: Status: Acute Time Spent With Patient Time: Total time spent is greater than 50% in coordination of care (as documented) at patient's floor/unit and/or counseling patient: Total time spent with greater than 50% in coordination of care (as documented) at patient's floor/unit and/or counseling patient:: 25
[2020-08-25] MEDS: Insulin Glargine,Hum.rec.anlog 100 UNIT/ML 10 ML VIAL 15 UNIT SUBCUT (13:26)
[2020-08-25 15:24] LABS: Glucose, Whole Blood 291 mg/dL (60-115)
[2020-08-25 16:00] VITALS: BP 124/73; PULSE 87; TEMP 36.4; O2SAT 99
--- NOTE | 2020-08-25 16:50 | PC.NURSE ---
patient refuses telesiter
[2020-08-25 17:05] LABS: Glucose, Whole Blood 283 mg/dL (60-115)
[2020-08-25] MEDS: Insulin Lispro 100 UNIT/ML 3 ML VIAL SUBCUT ×2 (18:01→23:10)
[2020-08-25 19:07] VITALS: BP 132/66; PULSE 91; RESP 16; TEMP 36.9; O2SAT 98
[2020-08-25 19:09] LABS: Potassium 3.2 mmol/l (3.3-5.1)
--- NOTE | 2020-08-25 19:37 | PC.NURSE ---
pOTASSIUM LEEL 3.2 ,PHOSPHORUS 3.0 ,DR. SIDDIQUI NOTIFIED
[2020-08-25] MEDS: Potassium Chloride/H20 10 MEQ/100 ML PIGGYBACK 100 MEQ IV (20:02)
[2020-08-25 23:07] LABS: Glucose, Whole Blood 254 mg/dL (60-115)
[2020-08-25 23:51] VITALS: BP 154/77; PULSE 77; RESP 16; TEMP 36.6; O2SAT 99
[2020-08-26 03:42] VITALS: BP 133/86; PULSE 70; RESP 18; TEMP 36.3; O2SAT 99
[2020-08-26] MEDS: Lactated Ringers 1,000 ML 100 ML IVCONT ×2 (03:51→12:46)
[2020-08-26] MEDS: Omeprazole 40 MG CAPSULE.DR PO (06:05)
[2020-08-26 06:34] LABS: Glucose, Whole Blood 279 mg/dL (60-115)
[2020-08-26] MEDS: Insulin Glargine,Hum.rec.anlog 100 UNIT/ML 10 ML VIAL 15 UNIT SUBCUT (06:35)
--- NOTE | 2020-08-26 06:43 | PC.NURSE ---
note sent to hospitalist on duty to question insulin times this am. lantus scheduled for 0630, therefore, would need two poc's and Iss in one hour. no new orders per md, poc was 279, lantus given as ordered
[2020-08-26 07:26] LABS: Blood Urea Nitrogen 4 mg/dL (9-16); Calcium 8.4 mg/dL (8.4-10.2); Creatinine Clr Calc Pharmacy 105.8; Estimated Glomerular Filt Rate > 60; Glucose Random 268 mg/dL (60-115)
[2020-08-26 07:51] LABS: Anion Gap 15 (12-20); Carbon Dioxide 21 mmol/L (22-29); Chloride 106 mmol/L (96-108); Potassium 2.7 mmol/l (3.3-5.1); Sodium 139 mmol/L (135-145)
[2020-08-26 07:55] VITALS: BP 140/76; PULSE 67; RESP 18; TEMP 36.3; O2SAT 98
[2020-08-26 07:59] LABS: Glucose, Whole Blood 326 mg/dL (60-115)
[2020-08-26 08:16] LABS: Glucose, Whole Blood 285 mg/dL (60-115)
--- NOTE | 2020-08-26 09:14 | MHC.CM.PN ---
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 WITH HER UNDERSTANDING
[2020-08-26] MEDS: 0.9 % Sodium Chloride Flush 3 ML SYRINGE IVFLUSH ×2 (09:40→15:10)
[2020-08-26 11:34] VITALS: BP 126/71; PULSE 92; RESP 18; TEMP 36.1; O2SAT 100
[2020-08-26 11:42] LABS: Glucose, Whole Blood 355 mg/dL (60-115)
[2020-08-26] MEDS: Insulin Lispro 100 UNIT/ML 3 ML VIAL SUBCUT ×3 (12:44→21:43)
--- NOTE | 2020-08-26 13:19 | MHC.CM.PN ---
nurse child care attendant note electronic medical record reviewed, met with patient she reported that her diabetes was stable while under the care after her pcp dr mckeon , but after he retired she has had a few new physicians and her diabetes has become more undstable , she reprted the last doctr she saw in june was to order her truicity and jardiance and call it into [facility] [address], i checked with the pharmacist and they reprted in fact the two medications were order but qwhen the pharmacy sent paperwork to be completed it wwas denied ?. patient was admitted to the [facility] with the diagnosis of dka and dehydration and reported she had no diabetic meds in four days, she was in the icu on a insuin dripp, and then transdferred to the [facility] surgical unit 08/25/20 . she reported that she has no vna no dme and does not want anyone , she reported she does what she does in carrying for herself and her diabetes and does not want any outside help? discharge plan duplex home where she lives with her two adult sons and her sister lives next door ffered vna and patient decined it) pcp patient to call for follw up post hospitla discharge pharmacy [facility] transportation family
--- NOTE | 2020-08-26 14:02 | HO.PM.IMPN ---
Subjective Subjective Date of Service: 08/26/20 Interval History: seen and examined reports feeling better reports previuosly not on insulin for DM reports last a1c before covid 19 pandemic was improving, down to 7ish reports since covid -- multiple changes in PCPs and so was without her trulicity for some time and also was not taking PO jardiac / metformin few days prior to admission due not feeling well agreeable on taking insulin upon d/c ROS General - no fevers or chills Cardiovascular - no chest pain Respiratory - no shortness of breath or cough Abdominal- no abdominal pain, nausea, vomiting, diarrhea Physical Exam Vital Signs: Vital Signs: Last Vital Signs Temp 97.0 F 08/26/20 11:34 Pulse 92 08/26/20 11:34 Resp 18 08/26/20 11:34 BP 126/71 08/26/20 11:34 Pulse Ox 100 08/26/20 11:34 Body Mass Index 35.8 General - no acute distress, appears comfortable Cardiovascular - regular rate and rhythm, S1-S2 Lungs - normal respiratory effort, clear to auscultation bilaterally, no wheezing Abdomen - soft, nontender, no rebound or guarding Extremities - no edema bilaterally Neuro - awake and alert, no focal deficits Objective Data Current Medications Generic Name Dose Route Start Last Admin Trade Name Freq PRN Reason Stop Dose Admin Acetaminophen 650 mg 08/24/20 11:06 08/24/20 15:54 Acetaminophen 325 Mg Tablet PO 650 mg Q4H PRN Administration Pain and Fever Insulin Human Lispro 0 unit 08/25/20 21:00 08/26/20 12:44 Insulin Lispro 100 Unit/Ml 3 Ml Vial SUBCUT 10 unit QIDACHS [facility] Administration Protocol Omeprazole 40 mg 08/24/20 06:30 08/26/20 06:05 Omeprazole 40 Mg Capsule. PO 40 mg DAILY@0630 [facility] Administration Ondansetron HCl 4 mg 08/23/20 20:23 Ondansetron Hcl 4 Mg/2 Ml Vial IVPUSH Q8H PRN Nausea and Vomiting Pharmacy Consult 1 each 08/23/20 19:52 Consult Rx Perform Med Rec MISCELLANE ONCE PRN Consult order Sodium Chloride 3 ml 08/24/20 00:00 08/26/20 09:40 0.9 % Sodium Chloride Flush 3 Ml Syringe IVFLUSH 3 ml QSHIFT [facility] Administration Labs CBC & Chem 7: 08/25/20 05:27 08/26/20 06:04 Microbiology Microbiology Results: Microbiology 08/23/20 19:41 Blood - Venous Blood Culture - Preliminary No growth after 48 hours. 08/23/20 19:30 Blood - Venous Blood Culture - Preliminary No growth after 48 hours. 08/24/20 Unknown Urine clean catch - Clean Catch Midstream Urine Culture - Final Assessment and Plan (1) Diabetic ketoacidosis associated with type 2 diabetes mellitus: Status: Acute Assessment and Plan: This is a 49 yo F with history of anxiety/depression, DM previously not on insulin who presented to the hospital with complaints of malaise for several days with poor oral intake (so she skipped her DM meds). She was found to be in DKA and was treated in the ICU over 2 nights and transferred out to med/surg after being transitioned to subcut. insulin on 08/25/2020. 1. DKA resolved on subcut insulin previously on orals / trulicity check a1c and likely anticipate d/c on insulin -- will also give referral to endocrinology pending 2. HypoK given IV yesterday, now decreased again give 60meq po now and 40 later with dinner 3. Depression antidepressants once confirmed by the patient DVT pptx - mechanical Full Code
[2020-08-26] MEDS: Potassium Chloride ER 20 MEQ TAB.ER.PRT 60 MEQ PO (15:09)
[2020-08-26 15:18] VITALS: BP 99/66; PULSE 86; RESP 17; TEMP 36.9; O2SAT 100
[2020-08-26 15:34] LABS: Estimated Average Glucose 335 mg/dL; Hemoglobin A1c % 13.3 %
[2020-08-26 16:46] LABS: Glucose, Whole Blood 242 mg/dL (60-115)
[2020-08-26 19:37] VITALS: BP 127/70; PULSE 80; RESP 18; TEMP 36.7; O2SAT 99
[2020-08-26 21:00] LABS: Glucose, Whole Blood 292 mg/dL (60-115)
[2020-08-26] MEDS: Potassium Chloride/H20 10 MEQ/100 ML PIGGYBACK 100 MEQ IV ×2 (21:39→22:42)
[2020-08-26] MEDS: Insulin Glargine,Hum.rec.anlog 100 UNIT/ML 10 ML VIAL 30 UNIT SUBCUT (21:44)
[2020-08-26 23:17] VITALS: BP 113/66; BP 146/68; PULSE 71; PULSE 74; RESP 18; TEMP 36.7; TEMP 37.2; O2SAT 98; O2SAT 99
--- NOTE | 2020-08-27 02:16 | PC.NURSE ---
Patient refused her sachet potassium, she said she does not like the taste and will prefer the pill version. MD was notified and he put in orders for four IV bags of Potassium. Patient took the first bag and refused the remaining 3 dur to discomfort of the potassium on her veins. MD notified and patient educated on the importance of potassium and heart function.
[2020-08-27 04:16] VITALS: BP 138/78; PULSE 63; RESP 14; TEMP 36.6; O2SAT 98
[2020-08-27] MEDS: Omeprazole 40 MG CAPSULE.DR PO (06:27)
[2020-08-27 07:13] VITALS: BP 137/90; PULSE 64; RESP 18; TEMP 36; O2SAT 99
[2020-08-27 07:36] LABS: Glucose, Whole Blood 240 mg/dL (60-115)
[2020-08-27 07:42] LABS: Anion Gap 13 (12-20); Blood Urea Nitrogen 7 mg/dL (9-16); Calcium 8.3 mg/dL (8.4-10.2); Carbon Dioxide 23 mmol/L (22-29); Chloride 108 mmol/L (96-108); Creatinine Clr Calc Pharmacy 109.2; Estimated Glomerular Filt Rate > 60; Glucose Random 255 mg/dL (60-115); Potassium 2.9 mmol/l (3.3-5.1); Sodium 141 mmol/L (135-145)
[2020-08-27] MEDS: Insulin Lispro 100 UNIT/ML 3 ML VIAL SUBCUT ×2 (08:47→12:52)
[2020-08-27] MEDS: Acetaminophen 325 MG TABLET 650 MG PO (08:48)
[2020-08-27] MEDS: 0.9 % Sodium Chloride Flush 3 ML SYRINGE IVFLUSH (08:48)
[2020-08-27] MEDS: Potassium Chloride ER 20 MEQ TAB.ER.PRT 60 MEQ PO (08:48)
[2020-08-27 10:39] VITALS: BMI 35.7
--- NOTE | 2020-08-27 10:50 | MHC.CM.PN ---
nurse adult care manager note electronic medical record and hospitalist . met with patient she is aware that she will be discharged home today i again offered her the vna and she declined, (reported that she does not need them her sister lives next door and is a nurse and will be able to hlep her,) case discussed with hospitalist and staff nurse , about patient declining vna for nursing , and if they would provide reinforcement with diabetes diagnosis , and new insulin medication and administration for discharge discharge plan home with no services (offered vna and patient declined) transportation cara pcp dr avelina mcadams patient to [facility] for [facility] hospit[facility] [address] [facility]
--- NOTE | 2020-08-27 11:11 | HO.PM.IMPN ---
Subjective Subjective Date of Service: 08/27/20 Interval History: seen and examined feeling better hoping to go home a1c results discussed with her, agreeable on insulin at home, reports she is comfortable with it and taken it before. ROS General - no fevers or chills Cardiovascular - no chest pain Respiratory - no shortness of breath or cough Abdominal- no abdominal pain, nausea, vomiting, diarrhea Physical Exam Vital Signs: Vital Signs: Last Vital Signs Temp 97.0 F 08/26/20 11:34 Pulse 92 08/26/20 11:34 Resp 18 08/26/20 11:34 BP 126/71 08/26/20 11:34 Pulse Ox 100 08/26/20 11:34 Body Mass Index 35.8 General - no acute distress, appears comfortable Cardiovascular - regular rate and rhythm, S1-S2 Lungs - normal respiratory effort, clear to auscultation bilaterally, no wheezing Abdomen - soft, nontender, no rebound or guarding Extremities - no edema bilaterally Neuro - awake and alert, no focal deficits Objective Data Current Medications Generic Name Dose Route Start Last Admin Trade Name Reese PRN Reason Stop Dose Admin Acetaminophen 650 mg 08/24/20 11:06 08/27/20 08:48 Acetaminophen 325 Mg Tablet PO 650 mg Q4H PRN Administration Pain and Fever Insulin Glargine 30 unit 08/26/20 21:00 08/26/20 21:44 Insulin Glargine,Hum.Rec.Anlog 100 Unit/Ml 10 Ml Vial SUBCUT 30 unit BEDTIME QIANA Administration Insulin Human Lispro 0 unit 08/25/20 21:00 08/27/20 08:47 Insulin Lispro 100 Unit/Ml 3 Ml Vial SUBCUT 4 unit QIDACHS [facility] Administration Protocol Omeprazole 40 mg 08/24/20 06:30 08/27/20 06:27 Omeprazole 40 Mg Capsule. PO 40 mg DAILY@0630 [facility] Administration Ondansetron HCl 4 mg 08/23/20 20:23 Ondansetron Hcl 4 Mg/2 Ml Vial IVPUSH Q8H PRN Nausea and Vomiting Pharmacy Consult 1 each 08/23/20 19:52 Consult Rx Perform Med Rec MISCELLANE ONCE PRN Consult order Sodium Chloride 3 ml 08/24/20 00:00 08/27/20 08:48 0.9 % Sodium Chloride Flush 3 Ml Syringe IVFLUSH 3 ml QSHIFT [facility] Administration Labs CBC & Chem 7: 08/25/20 05:27 08/27/20 06:16 Microbiology Microbiology Results: Microbiology 08/23/20 19:41 Blood - Venous Blood Culture - Preliminary No growth after 48 hours. 08/23/20 19:30 Blood - Venous Blood Culture - Preliminary No growth after 48 hours. 08/24/20 Unknown Urine clean catch - Clean Catch Midstream Urine Culture - Final Assessment and Plan (1) Diabetic ketoacidosis associated with type 2 diabetes mellitus: Status: Acute Assessment and Plan: This is a 49 yo F with history of anxiety/depression, DM previously not on insulin who presented to the hospital with complaints of malaise for several days with poor oral intake (so she skipped her DM meds). She was found to be in DKA and was treated in the ICU over 2 nights and transferred out to med/surg after being transitioned to subcut. insulin on 08/25/2020. 1. DKA resolved sliding scale + lantus -- will need this upon d/c a1c > 13 will refer to endocrine upon d/c as well 2. HypoK repletion attempted yesterday, refused 2nd dose PO and IV this AM low again, agreeable on PO repletement with tabs (not poweder) check Mag/K this afternoone 3. Depression unclear if patient has been taking these, wont start them inpatient DVT pptx - mechanical Full Code dispo: home with self care (doesnt want VNA upon d/c) this afternoone if lytes stable.
[2020-08-27 11:16] VITALS: BP 130/73; PULSE 76; RESP 18; TEMP 36.9; O2SAT 99
[2020-08-27 11:36] LABS: Glucose, Whole Blood 252 mg/dL (60-115)
[2020-08-27 14:33] LABS: Magnesium 1.5 mg/dL (1.6-2.6); Potassium 3.4 mmol/l (3.3-5.1)
--- NOTE | 2020-08-27 15:42 | PM.DS ---
DS: Providers Provider Date of admission: 08/23/20 22:59 Primary care physician: Unknown Physician Consults: 08/26/20 13:47 Consult to Hospitalist Routine Consulting Provider: Kellee Esteban Reason for consultation: no reason DS: Diagnosis Discharge Diagnosis (1) Diabetic ketoacidosis associated with type 2 diabetes mellitus: Status: Acute (2) Hypokalemia: Status: Acute DS: Medications Discharge Medications Home Medications: Home Medications Medication Instructions Recorded Confirmed metformin 08/23/20 Previous Rx's Medication Instructions Recorded insulin glargine [Lantus Solostar 30 unit SUBCUT QPM 30 Days #9 ml 08/27/20 U-100 Insulin] insulin lispro [Humalog KwikPen See Protocol SUBCUT TID 30 Days 08/27/20 Insulin] #4.5 ml potassium chloride 20 meq PO BID #14 tab 08/27/20 DS: Summary Hospital Course Hospital Course: patient presented with DKA and was initially treated with IV insulin per DKA protocol in intensive care. She was transitioned to subcu Lantus and Humalog and continued her treatment on the floor. Her insulin was further adjusted based on her blood sugars. She will be discharged home with Lantus 30 units at bedtime along with NovoLog sliding scale. She will also continue her metformin. But for the time being, until seen by endocrinology, will discontinue her Jardiance and Trulicity which ? she has been non-compliant with. The likely cause of her DKA was secondary to noncompliance. An A1c was checked which was greater than 13. VNA services were offered to the patient for diabetic Education, which she declined. Time Spent with Patient Time attestation: Total time spent providing and/or coordinating discharge services: Physical Exam Vital Signs: Vital Signs: Last Vital Signs Temp 98.4 F 08/27/20 11:16 Pulse 76 08/27/20 11:16 Resp 18 08/27/20 11:16 BP 130/73 08/27/20 11:16 Pulse Ox 99 08/27/20 11:16 Body Mass Index 35.7 General - no acute distress, appears comfortable Cardiovascular - regular rate and rhythm, S1-S2 Lungs - normal respiratory effort, clear to auscultation bilaterally, no wheezing Abdomen - soft, nontender, no rebound or guarding Extremities - no edema bilaterally Neuro - awake and alert, no focal deficits DS: Data Data Completed and Pending Labs on day of discharge: Laboratory Last Values WBC 11.1 X10*3/uL (4.8-10.8) H 08/25/20 05:27 RBC 4.54 X10*6/uL (4.20-5.50) 08/25/20 05:27 Hgb 12.2 g/dl (12.0-16.0) 08/25/20 05:27 Hct 37.8 % (37-47) 08/25/20 05:27 MCV 83.3 fL (80-98) 08/25/20 05:27 MCH 26.9 pg (27.0-33.0) L 08/25/20 05:27 MCHC 32.3 g/dl (31.0-35.0) 08/25/20 05:27 RDW 15.6 % (11.0-16.0) 08/25/20 05:27 Plt Count 252 X10*3/uL (160-400) 08/25/20 05:27 MPV 8.8 fL (9.4-12.3) L 08/25/20 05:27 Immature Gran % (Auto) 0.4 % (0.0-0.4) 08/25/20 05:27 Neut % (Auto) 74.9 % (45-73) H 08/25/20 05:27 Lymph % (Auto) 17.6 % (20-40) L 08/25/20 05:27 Brooke % (Auto) 6.5 % (2-11) 08/25/20 05:27 Eos % (Auto) 0.2 % (0-4) 08/25/20 05:27 Baso % (Auto) 0.4 % (0-2) 08/25/20 05:27 Lymph # (Auto) 2.0 X10*3/uL (1.2-4.9) 08/25/20 05:27 Brooke # (Auto) 0.7 X10*3/uL (0.1-1.2) 08/25/20 05:27 Eos # (Auto) 0.0 X10*3/uL (0.0-0.4) 08/25/20 05:27 Baso # (Auto) 0.0 X10*3/uL (0.0-0.2) 08/25/20 05:27 Abs Immat Gran (auto) 0.04 X10*3/uL (0.00-0.03) H 08/25/20 05:27 Absolute Neuts (auto) 8.4 X10*3/uL (2.0-8.3) H 08/25/20 05:27 Absolute Nucleated RBC 0.000 X10*3/uL (0.0-0.012) 08/25/20 05:27 Nucleated RBC % (auto) 0.0 /100WBC (0.0-0.2) 08/25/20 05:27 D-Dimer 377 NG/ML 08/23/20 17:59 ABG pH 7.17 (7.35-7.45) L* 08/23/20 19:30 ABG pCO2 12 mmhg (32-45) L* 08/23/20 19:30 ABG pO2 129 mmhg (83-108) H 08/23/20 19:30 ABG HCO3 4 mmol/l (22-26) L 08/23/20 19:30 ABG O2 Saturation 98.8 % 08/23/20 19:30 ABG Base Excess -21.9 08/23/20 19:30 VBG pH 7.38 (7.32-7.43) 08/24/20 10:26 VBG pCO2 29 mmhg 08/24/20 10:26 VBG Oxygen Liters/Min TNP 08/24/20 10:26 VBG pO2 43 mmhg 08/24/20 10:26 VBG HCO3 17 mmol/L 08/24/20 10:26 VBG O2 Saturation 87.3 % 08/24/20 10:26 VBG Base Excess -7.2 mmol/L 08/24/20 10:26 Oxygen Given ROOM AIR 08/23/20 19:30 Sodium 141 mmol/L (135-145) 08/27/20 06:16 Potassium 3.4 mmol/l (3.3-5.1) 08/27/20 13:47 Chloride 108 mmol/L (96-108) 08/27/20 06:16 Carbon Dioxide 23 mmol/L (22-29) 08/27/20 06:16 Anion Gap 13 (12-20) 08/27/20 06:16 BUN 7 mg/dL (9-16) L D 08/27/20 06:16 Creatinine 0.62 mg/dL (0.5-1.4) 08/27/20 06:16 Estim Creat Clear Calc 109.2 08/27/20 06:16 Estimated GFR > 60 08/27/20 06:16 POC Glucose 252 mg/dL (60-115) H 08/27/20 11:14 Random Glucose 255 mg/dL (60-115) H 08/27/20 06:16 Estimat Average Glucose 335 mg/dL 08/25/20 05:27 Hemoglobin A1c % 13.3 % 08/25/20 05:27 Lactic Acid 1.2 mmol/L (0.5-2.0) 08/23/20 19:30 Calcium 8.3 mg/dL (8.4-10.2) L 08/27/20 06:16 Phosphorus 3.0 mg/dL (2.7-4.5) 08/25/20 18:08 Magnesium 1.5 mg/dL (1.6-2.6) L 08/27/20 13:47 Troponin I High Sens 4.3 ng/L (<3.5-17.0) 08/23/20 16:50 Lipase 166 U/L (8-78) H 08/23/20 16:50 Urine Color YELLOW 08/24/20 00:09 Urine Appearance CLEAR 08/24/20 00:09 Urine pH 6.0 (5.0-8.0) 08/24/20 00:09 Ur Specific [place] 1.025 (1.005-1.025) 08/24/20 00:09 Urine Protein 1+ MG/DL (NEG-TRACE) H 08/24/20 00:09 Urine Glucose (UA) 500 MG/DL (NEG) H 08/24/20 00:09 Urine Ketones >=80 MG/DL (NEG) 08/24/20 00:09 Urine Blood 1+ (NEG) H 08/24/20 00:09 Urine Nitrite NEG (NEG) 08/24/20 00:09 Ur Leukocyte Esterase NEG (NEG) 08/24/20 00:09 Urine RBC 1-4 /HPF (0) 08/24/20 00:09 Urine WBC 15-29 /HPF (0-4) H 08/24/20 00:09 Ur Squamous Epith Cells 2+ /LPF 08/24/20 00:09 Urine Bacteria TRACE /LPF 08/24/20 00:09 Hyaline Casts 0-2 /LPF 08/24/20 00:09 Urine Mucus 1+ /LPF 08/24/20 00:09 Salicylates < 5.0 mg/dL (15-30) L 08/23/20 16:50 Acetone, Qual Moderate (Negative) H 08/23/20 16:50 COVID-19 (DEA) Negative (Negative) 08/23/20 20:52 COVID-19 Clin Com See Note 08/23/20 20:52 Preliminary micro results at discharge 08/23/20 19:41 Blood Culture - Preliminary Blood - Venous No growth after 48 hours. 08/23/20 19:30 Blood Culture - Preliminary Blood - Venous No growth after 48 hours. Discharge Plan Discharge Patient Disposition: Home, Self-Care Referrals: Collin Arteaga PA-C [Physician Photolithographic Stripper] - 1 Day (please paola for follow up post hospitlal discharge [phone]) Live Parker MD [Physician] - (call office for appt) Physician,Unknown [Primary Care Provider] - Discharge Medications: New Lantus Solostar U-100 Insulin 100 unit/mL (3 mL) insulin pen 30 unit subcut QPM 30 Days Qty: 9 RF: 0 insulin lispro [Humalog KwikPen Insulin] 100 unit/mL insulin pen See Protocol unit subcut TID 30 Days Qty: 4.5 RF: 0 potassium chloride 20 mEq tablet,ER particles/crystals 20 meq PO BID Qty: 14 RF: 0 Continued metformin RF: 0 Discontinued Jardiance RF: 0 Trulicity 0.75 mg/0.5 mL pen injector subcut RF: 0 Discharge Orders: Discharge Order (Routine); Ordered 08/27/20 Ordered By: Mihir Maravilla Diet: advance to usual diet Activity on Discharge: As tolerated Visit Report Forms: Patient Portal Discharge page Care Plan Goals: To stay healthy and out of the hospital. Health Concerns: DKA -- a1c is greater than 13 Take Latnus and Novolog. Continue Metformin. Stop Jardiance for now. Follow up with Endocrinology Plan of Treatment: DKA -- a1c is greater than 13 Take Latnus and Novolog. Continue Metformin. Stop Jardiance for now. Follow up with Endocrinology
--- NOTE | 2020-08-27 15:45 | MHC.CM.PN ---
per hospitalist patient will be discharged home on lantus long acting insulin and sliding scale insulin pita reached out to cristy at [facility] insurance , she alerted care partners that patient missy be going home on insulin to try to expedite any insurance AUTHORIZATION. CALLED TO [facility] SPOKE WITH PHARMACIST CAMERON SHE WOULD JIMBO TO HAVE THIS VCHANGED FROM [place]ERALD To ARTEMIO, SHE REPORTED SHE WAS TRYING TO REach the hospitist regarding this , informed hospitlaist and he will call pharmacist back to place new script and order al related supples needed all needed supplies
[2020-08-27 15:50] VITALS: BP 100/71; PULSE 76; RESP 18; TEMP 36.4; O2SAT 99
== END 2020-08-27 16:30 | disposition home or self-care (01) | DRG 638 ==
LOC: HO.ED 20:27 → HO.ICU 23:05 → HO.S3 08-25 15:22
PROVIDERS: Internal Medicine; Internal Medicine Cardiovascular Disease; Physician Assistant; Physician Assistant Medical; Admitting Provider Internal Medicine Pulmonary Disease; Emergency Provider Emergency Medicine; Visit Provider Family Medicine
DX: E11.10 Type 2 diabetes mellitus with ketoacidosis without coma (principal); E87.2 Acidosis; N17.9 Acute kidney failure, unspecified; G47.30 Sleep apnea, unspecified; Z23 Encounter for immunization; Z20.828 Contact with and (suspected) exposure to other viral communicable diseases; E86.0 Dehydration; E87.6 Hypokalemia; F32.9 Major depressive disorder, single episode, unspecified; Z79.4 Long term (current) use of insulin; Z79.899 Other long term (current) drug therapy
CPT/HCPCS: 36415; 71045; 80048; 80051; 81001; 82009; 82803; 82947; 83036; 83605; 83690; 83735; 84100; 84132; 84484; 85025; 85379; 87040; 87086; 87635; 90686; 93005; 96361; 96365; 96366; 96375; 99285; 99291; G0480

== ENCOUNTER → 2020-11-12 14:59 | Outpatient (BNVA) | payer OTHER, SELFPAY | PROVIDERS: PCP Physician Assistant; Visit Provider Internal Medicine | DX: E11.65 Type 2 diabetes mellitus with hyperglycemia (principal); E78.5 Hyperlipidemia, unspecified; I10 Essential (primary) hypertension; E55.9 Vitamin D deficiency, unspecified; Z79.4 Long term (current) use of insulin | CPT/HCPCS: 82947; 99202 ==

== ENCOUNTER → 2020-12-11 10:09 | Outpatient (BNVA) | payer OTHER, SELFPAY | PROVIDERS: PCP Physician Assistant; Visit Provider Dietitian, Registered ==

== ENCOUNTER 2020-12-12 07:53 | Outpatient (REF) | payer OTHER, SELFPAY ==
[2020-12-12 09:03] LABS: Alanine Aminotransferase 17 U/L (0-31); Albumin Level 4.3 g/dL (3.5-5.0); Alkaline Phosphatase 109 U/L (39-117); Anion Gap 15 (12-20); Aspartate Amino Transferase 13 U/L (5-31); Bilirubin Total 0.5 mg/dL (0.0-1.0); Blood Urea Nitrogen 15 mg/dL (9-16); Calcium 8.5 mg/dL (8.4-10.2); Carbon Dioxide 23 mmol/L (22-29); Chloride 105 mmol/L (96-108); Cholesterol 198 mg/dL; Estimated Glomerular Filt Rate > 60; Glucose Random 131 mg/dL (60-115); HDL Cholesterol 47 mg/dL; LDL Cholesterol Calculated 121 mg/dl; Potassium 4.5 mmol/L (3.3-5.1); Sodium 138 mmol/L (135-145); Total Protein 6.9 g/dL (6.5-8.0); Triglycerides 151 mg/dL
[2020-12-12 09:24] LABS: Free T4 (Free Thyroxine) 0.86 ng/dL (0.71-1.85); Thyroid Stimulating Hormone 1.91 uIU/mL (0.32-4.0)
[2020-12-14 00:46] LABS: C Peptide 2.26 ng/mL (0.80-3.85)
[2020-12-14 04:45] LABS: Vitamin B12 254 pg/mL (200-900)
[2020-12-14 06:42] LABS: LDL Cholesterol Direct 126 mg/dL (<100)
[2020-12-14 18:07] LABS: Adrenocorticotropic Hormone 14 pg/mL (6-50)
[2020-12-16 16:12] LABS: Glutamic acid decarboxylase Ab <5 IU/mL (<5)
[2020-12-19 16:21] LABS: Insulinoma associated 2 aatb <5.4 U/mL (<5.4)
[2020-12-20 03:07] LABS: Islet Cell Antibody Screen NEGATIVE (NEGATIVE)
== END 2020-12-12 07:54 | disposition home or self-care (01) ==
LOC: HO.LAB 07:53
PROVIDERS: PCP Physician Assistant; Visit Provider Internal Medicine
DX: E11.9 Type 2 diabetes mellitus without complications (principal)
CPT/HCPCS: 36415; 80053; 80061; 82024; 82533; 82607; 83525; 83721; 84439; 84443; 84681; 86255; 86341

== ENCOUNTER → 2020-12-15 08:01 | Outpatient (BNVA) | payer OTHER, SELFPAY | PROVIDERS: PCP Physician Assistant; Visit Provider Family Medicine Adult Medicine | DX: M96.1 Postlaminectomy syndrome, not elsewhere classified (principal); Z79.899 Other long term (current) drug therapy | CPT/HCPCS: 99212 ==

== ENCOUNTER → 2020-12-29 08:34 | Outpatient (BNVA) | payer OTHER, SELFPAY | PROVIDERS: PCP Physician Assistant; Visit Provider Family Medicine Adult Medicine | DX: M96.1 Postlaminectomy syndrome, not elsewhere classified (principal) | CPT/HCPCS: Q3014 ==

== ENCOUNTER → 2021-01-11 11:07 | Outpatient (BNVA) | payer OTHER, SELFPAY | PROVIDERS: PCP Physician Assistant; Visit Provider Dietitian, Registered | DX: E11.65 Type 2 diabetes mellitus with hyperglycemia (principal); Z79.4 Long term (current) use of insulin | CPT/HCPCS: 97803 ==

== ENCOUNTER → 2021-02-02 09:43 | Outpatient (BNVA) | payer OTHER, SELFPAY | PROVIDERS: PCP Physician Assistant; Visit Provider Family Medicine Adult Medicine | DX: M96.1 Postlaminectomy syndrome, not elsewhere classified (principal); J45.909 Unspecified asthma, uncomplicated | CPT/HCPCS: 99212 ==

== ENCOUNTER → 2021-02-15 08:28 | Outpatient (BNVA) | payer OTHER, SELFPAY | PROVIDERS: PCP Physician Assistant; Visit Provider Internal Medicine | CPT/HCPCS: Q3014 ==

== ENCOUNTER → 2021-03-02 09:20 | Outpatient (BNVA) | payer OTHER, SELFPAY | PROVIDERS: PCP Physician Assistant; Visit Provider Family Medicine Adult Medicine | DX: M96.1 Postlaminectomy syndrome, not elsewhere classified (principal); J45.909 Unspecified asthma, uncomplicated | CPT/HCPCS: 99212 ==

== ENCOUNTER 2021-03-11 13:50 | Emergency (ER) | payer OTHER, SELFPAY ==
--- NOTE | ~2021-03-11 | CT_ITS ---
EXAMINATION: CT HEAD WITHOUT CONTRAST CLINICAL INFORMATION: All, AMS. COMPARISON: None TECHNIQUE: Contiguous axial imaging was performed from the skull base to vertex without intravenous administration of contrast. This CT examination was performed using dose optimization techniques as appropriate, variously including the following: *Automated exposure control *Adjustment of mA and/or kV according to patient size (this includes techniques or standardized protocols for targeted exams where dose is matched to indication/reason for exam; i.e. extremities or head) *Use of iterative reconstruction technique DLP: 757 mGy-cm FINDINGS: There is no evidence of acute intracranial hemorrhage or territorial infarction. No abnormal mass effect or midline shift is seen. Bean to white matter differentiation is well preserved. No extra-axial fluid collections are identified. The lateral ventricles are symmetrical in size and configuration without enlargement. The osseous structures and soft tissues are normal. The mastoid air cells are well-aerated. There is small air-fluid level in the left maxillary sinus. CT/CT head/brain wo con IMPRESSION: No acute intracranial process seen. Acute left maxillary sinus symmetry changes.
--- NOTE | ~2021-03-11 | XR_ITS ---
EXAMINATION: XR CHEST CLINICAL INFORMATION: AMS. COMPARISON: None TECHNIQUE: Frontal view of the chest was obtained. FINDINGS: The lungs are well-expanded and clear acute process. The heart size and pulmonary vascularity is normal. No gross bony abnormality seen. XR/XR chest 1V IMPRESSION: Unremarkable chest exam.
[2021-03-11 13:56] VITALS: BP 168/86; PULSE 91; RESP 18; TEMP 37; O2SAT 99; BMI 37.8
--- NOTE | 2021-03-11 14:20 | ECG_ITS ---
Test Reason : AMS Blood Pressure : / mmHG Vent. Rate : 085 BPM Atrial Rate : 085 BPM P-R Int : 162 ms QRS Dur : 074 ms QT Int : 366 ms P-R-T Axes : 066 043 061 degrees QTc Int : 435 ms Normal sinus rhythm Normal ECG When compared with ECG of 23-AUG-2020 16:59, No significant change was found Referred By: Lindsay Lima Electronically Signed By:Dereck Jamil
--- NOTE | 2021-03-11 14:32 | ED.AMS ---
HPI - Altered Mental Status General Chief Complaint: Altered Mental Status Stated Complaint: FAMILY STATES INCREASED AMS OVER LAST WEEK Time Seen by Provider: 03/11/21 14:08 Source: patient and EMS Mode of arrival: EMS Limitations: no limitations History of Present Illness HPI narrative: 50 yo female hx of asthma, HTN, HLD, chronic pain on narcotics at home, DM here with 2 days of AMS she is very vague notes that she feels off, might have fallen, family worried about UTI and maybe medications at home per EMS to RN complaint: altered mental status Onset (ago): day(s) (2) Severity: moderate Consistency of symptoms: waxing and waning Context: unknown Associated symptoms: chills, loss of appetite, malaise, nausea/vomiting and difficulty walking Related Data Home Medications Medication Instructions Recorded Confirmed blood sugar diagnostic #10 ea 11/12/20 02/15/21 Previous Rx's Medication Instructions Recorded blood sugar diagnostic #100 ea 11/12/20 blood-glucose meter #1 ea 11/12/20 dulaglutide 1.5 mg/0.5 mL 1.5 mg SUBCUT QWEEK 30 Days #2.5 ml 11/12/20 subcutaneous pen injector lancets 28 gauge #100 ea 11/12/20 metformin 500 mg tablet,extended 1,000 mg PO BID 30 Days #120 tab 11/12/20 release 24 hr insulin glargine 100 unit/mL (3 30 unit SUBCUT QPM 30 Days #9 ml 11/24/20 mL) subcutaneous pen insulin aspart U-100 100 unit/mL See Rx Instructions SUBCUT QIDACHS 11/25/20 (3 mL) subcutaneous pen 30 Days #15 ml pen needle, diabetic 32 gauge x #400 ea 11/30/20 fluoxetine 20 mg capsule 60 mg PO DAILY 30 Days #90 cap 01/08/21 fluticasone 100 mcg-salmeterol 50 1 inh INHALATION BID 30 Days #1 ea 02/02/21 mcg/dose blistr powdr for inhalation pregabalin 300 mg capsule 300 mg PO BID 30 Days #180 cap 02/02/21 atorvastatin 40 mg tablet 40 mg PO DAILY 30 Days #30 tab 02/15/21 furosemide 20 mg tablet 20 mg PO Q8H PRN 15 Days #45 tab 03/01/21 buprenorphine 15 mcg/hour weekly 1 patch TRANSDERMAL Q7D #4 ea 03/02/21 transdermal patch oxycodone 10 mg tablet 10 mg PO DAILY PRN 30 Days #30 tab 03/02/21 Allergies Allergy/AdvReac Type Severity Reaction Status Date / Time baclofen [BACLOFEN] Allergy Unknown CAN'T Verified 03/02/21 09:50 STAND, MEMORY LOSS, memory loss lisinopril Allergy Unknown increased Verified 03/02/21 09:50 creatinine? Review of Systems Review of Systems: Constitutional : No Weight loss, No Fever, No Chills, pos Fatigue, pos Malaise ENT/Mouth : No sore throat, No Rhinorrhea Eyes: No Eye Pain, No Swelling, No Redness Cardiovascular : No Chest Pain, No SOB, No Dyspnea on Exertion, No Orthopnea, No Edema, No Palpitations Respiratory : No Cough, No Sputum, No Wheezing Gastrointestinal : pos Nausea, No Vomiting, No Diarrhea, No Constipation, No abdominal Pain, No Hematochezia, No Melena Genitourinary : No Dysuria, No Urinary Frequency, No Hematuria, Musculoskeletal : No joint pain, No Myalgias, No Joint Swelling Skin : No Skin Lesions, No rash Neuro : pos Weakness, No Numbness, No Dizziness, No Headache Psych : No Anxiety/Panic, No Depression Heme/Lymph: No Bruising, No Bleeding,No Lymphadenopathy Endocrine : No Polyuria, No Polydipsia All other systems reviewed and are negative [facility] Past Medical History Attestation statement: The following information was validated with the patient. Medical History Arthritis Asthma Back pain with history of spinal surgery Degenerative disorder of bone Diabetes mellitus, type 2 Failed back syndrome, cervical Failed back syndrome, lumbar HLD (hyperlipidemia) HTN (hypertension) Sleep apnea Spinal stenosis T2DM (type 2 diabetes mellitus) Vitamin D deficiency Surgical History History of arthroscopy of right knee History of cataract surgery History of section History of laminectomy History of microdiscectomy History of nasal surgery History of tonsillectomy History of umbilical hernia repair Hx laparoscopic cholecystectomy Hx of eye surgery Family History Family History Father No problems noted. Mother No problems noted. Maternal Grandmother Colon cancer Sister Diabetes Son Malabsorption Asthma Tracheomalacia Social History Social History Household Members: Children Household Members Other:: lives w/ 2 kids next to sister. Housing: House Housing Other:: duplex Do you presently have visiting nurse or other home services: No Alcohol intake: never Smoked in Last 30 Days: No Use of substances other than those prescribed or required for medical reasons: No Advance Directives: No Advance Directives Information Provided: No Patient : No service: No Current occupational status: disabled Physical Exam Vital Signs: Vital Signs: Last Vital Signs Temp 98.6 F 03/11/21 16:24 Pulse 83 03/11/21 15:40 Resp 17 03/11/21 15:40 BP 152/83 H 03/11/21 15:40 Pulse Ox 100 03/11/21 15:40 Body Mass Index 37.8 Appearance: Alert. Oriented X3 but slow to respond. No acute distress. Eyes: Pupils equal, round and reactive to light. ENT: Pharynx normal. Neck: Normal inspection. Neck supple. CVS: Normal heart rate and rhythm. Pulses normal. Respiratory: No respiratory distress. Breath sounds normal. Abdomen: Soft and non-tender. Skin: Skin warm and dry. Normal skin color. Normal skin turgor. diffuse areas of scabbed excoriated areas Extremities: No lower extremity edema. No calf ttp Neuro: Oriented X 3 but slow to respond. No motor deficit. No sensory deficit. Course Course Course Narrative: signed out to Dr. Bertrand pending AMS MDM - Altered Mental Status MDM Narrative Medical decision making narrative: 50 yo female hx of asthma, HTN, HLD, chronic pain on narcotics at home, DM here with 2 days of AMS she is very vague notes that she feels off, might have fallen, family worried about UTI and maybe medications at home per EMS to RN at this time will obtain labs, CT head for trauma, urine, IVF, CXR, dispo per results and findings. Lab Data Result diagrams: 03/11/21 14:42 03/11/21 14:42 Labs: Lab Results 03/11/21 03/11/21 03/11/21 Range/Units 14:41 14:41 14:41 WBC (4.8-10.8) X10*3/uL RBC (4.20-5.50) X10*6/uL Hgb (12.0-16.0) g/dl Hct (37-47) % MCV (80-98) fL MCH (27.0-33.0) pg MCHC (31.0-35.0) g/dl RDW (11.0-16.0) % Plt Count (160-400) X10*3/uL MPV (9.4-12.3) fL Immature Gran % (Auto) (0.0-0.4) % Neut % (Auto) (45-73) % Lymph % (Auto) (20-40) % [place] % (Auto) (2-11) % Eos % (Auto) (0-4) % Baso % (Auto) (0-2) % Lymph # (Auto) (1.2-4.9) X10*3/uL [place] # (Auto) (0.1-1.2) X10*3/uL Eos # (Auto) (0.0-0.4) X10*3/uL Baso # (Auto) (0.0-0.2) X10*3/uL Abs Immat Gran (auto) (0.00-0.03) X10*3/uL Absolute Neuts (auto) (2.0-8.3) X10*3/uL Absolute Nucleated RBC (0.0-0.012) X10*3/uL Nucleated RBC % (auto) (0.0-0.2) /100WBC PT (10.8-13.0) SEC INR (0.9-1.1) APTT (24.1-38.0) SEC VBG pH (7.32-7.43) VBG pCO2 mmHg VBG pO2 mmHg VBG HCO3 (22-26) mmol/L VBG O2 Saturation % VBG Base Excess mmol/L Sodium (135-145) mmol/L Potassium (3.3-5.1) mmol/L Chloride (96-108) mmol/L Carbon Dioxide (22-29) mmol/L Anion Gap (12-20) BUN (9-16) mg/dL Creatinine (0.5-1.4) mg/dL Estim Creat Clear Calc Estimated GFR Random Glucose (60-115) mg/dL Lactic Acid 0.9 (0.5-2.0) mmol/L Calcium (8.4-10.2) mg/dL Magnesium (1.6-2.6) mg/dL Total Bilirubin (0.0-1.0) mg/dL Direct Bilirubin (0.0-0.5) mg/dL AST (5-31) U/L ALT (0-31) U/L Alkaline Phosphatase (39-117) U/L Ammonia 23 (13-55) umol/L Troponin I High Sens (<3.5-17.0) ng/L Total Protein (6.5-8.0) g/dL Albumin (3.5-5.0) g/dL Lipase (8-78) U/L Procalcitonin ng/mL Salicylates (15-30) mg/dL Urine Opiates Screen (Not Detect) Ur Barbiturates Screen (Not Detect) Ur Phencyclidine Scrn (Not Detect) Ur Amphetamines Screen (Not Detect) U Benzodiazepines Scrn (Not Detect) Urine Cocaine Screen (Not Detect) U Marijuana (THC) Screen (Not Detect) Ethyl Alcohol mg/dL COVID-19 (DEA) Negative (Negative) COVID-19 Clin Com See Note 03/11/21 03/11/21 03/11/21 Range/Units 14:41 14:42 14:42 WBC 9.6 (4.8-10.8) X10*3/uL RBC 4.09 L (4.20-5.50) X10*6/uL Hgb 11.5 L (12.0-16.0) g/dl Hct 35.5 L (37-47) % MCV 86.8 (80-98) fL MCH 28.1 (27.0-33.0) pg MCHC 32.4 (31.0-35.0) g/dl RDW 13.8 (11.0-16.0) % Plt Count 271 (160-400) X10*3/uL MPV 8.8 L (9.4-12.3) fL Immature Gran % (Auto) 0.2 (0.0-0.4) % Neut % (Auto) 71.7 (45-73) % Lymph % (Auto) 20.1 (20-40) % [place] % (Auto) 6.0 (2-11) % Eos % (Auto) 1.7 (0-4) % Baso % (Auto) 0.3 (0-2) % Lymph # (Auto) 1.9 (1.2-4.9) X10*3/uL [place] # (Auto) 0.6 (0.1-1.2) X10*3/uL Eos # (Auto) 0.2 (0.0-0.4) X10*3/uL Baso # (Auto) 0.0 (0.0-0.2) X10*3/uL Abs Immat Gran (auto) 0.02 (0.00-0.03) X10*3/uL Absolute Neuts (auto) 6.9 (2.0-8.3) X10*3/uL Absolute Nucleated RBC 0.000 (0.0-0.012) X10*3/uL Nucleated RBC % (auto) 0.0 (0.0-0.2) /100WBC PT (10.8-13.0) SEC INR (0.9-1.1) APTT (24.1-38.0) SEC VBG pH (7.32-7.43) VBG pCO2 mmHg VBG pO2 mmHg VBG HCO3 (22-26) mmol/L VBG O2 Saturation % VBG Base Excess mmol/L Sodium 140 (135-145) mmol/L Potassium 4.4 (3.3-5.1) mmol/L Chloride 104 (96-108) mmol/L Carbon Dioxide 29 (22-29) mmol/L Anion Gap 11 L (12-20) BUN 10 (9-16) mg/dL Creatinine 0.60 (0.5-1.4) mg/dL Estim Creat Clear Calc 115.0 Estimated GFR > 60 Random Glucose 119 H (60-115) mg/dL Lactic Acid (0.5-2.0) mmol/L Calcium 8.6 (8.4-10.2) mg/dL Magnesium (1.6-2.6) mg/dL Total Bilirubin (0.0-1.0) mg/dL Direct Bilirubin (0.0-0.5) mg/dL AST (5-31) U/L ALT (0-31) U/L Alkaline Phosphatase (39-117) U/L Ammonia (13-55) umol/L Troponin I High Sens (<3.5-17.0) ng/L Total Protein (6.5-8.0) g/dL Albumin (3.5-5.0) g/dL Lipase (8-78) U/L Procalcitonin 0.02 ng/mL Salicylates (15-30) mg/dL Urine Opiates Screen (Not Detect) Ur Barbiturates Screen (Not Detect) Ur Phencyclidine Scrn (Not Detect) Ur Amphetamines Screen (Not Detect) U Benzodiazepines Scrn (Not Detect) Urine Cocaine Screen (Not Detect) U Marijuana (THC) Screen (Not Detect) Ethyl Alcohol mg/dL COVID-19 (DEA) (Negative) COVID-19 Clin Com 03/11/21 03/11/21 03/11/21 Range/Units 14:42 14:42 14:42 WBC (4.8-10.8) X10*3/uL RBC (4.20-5.50) X10*6/uL Hgb (12.0-16.0) g/dl Hct (37-47) % MCV (80-98) fL MCH (27.0-33.0) pg MCHC (31.0-35.0) g/dl RDW (11.0-16.0) % Plt Count (160-400) X10*3/uL MPV (9.4-12.3) fL Immature Gran % (Auto) (0.0-0.4) % Neut % (Auto) (45-73) % Lymph % (Auto) (20-40) % [place] % (Auto) (2-11) % Eos % (Auto) (0-4) % Baso % (Auto) (0-2) % Lymph # (Auto) (1.2-4.9) X10*3/uL [place] # (Auto) (0.1-1.2) X10*3/uL Eos # (Auto) (0.0-0.4) X10*3/uL Baso # (Auto) (0.0-0.2) X10*3/uL Abs Immat Gran (auto) (0.00-0.03) X10*3/uL Absolute Neuts (auto) (2.0-8.3) X10*3/uL Absolute Nucleated RBC (0.0-0.012) X10*3/uL Nucleated RBC % (auto) (0.0-0.2) /100WBC PT 13.6 H (10.8-13.0) SEC INR 1.1 (0.9-1.1) APTT 35.9 (24.1-38.0) SEC VBG pH (7.32-7.43) VBG pCO2 mmHg VBG pO2 mmHg VBG HCO3 (22-26) mmol/L VBG O2 Saturation % VBG Base Excess mmol/L Sodium (135-145) mmol/L Potassium (3.3-5.1) mmol/L Chloride (96-108) mmol/L Carbon Dioxide (22-29) mmol/L Anion Gap (12-20) BUN (9-16) mg/dL Creatinine (0.5-1.4) mg/dL Estim Creat Clear Calc Estimated GFR Random Glucose (60-115) mg/dL Lactic Acid (0.5-2.0) mmol/L Calcium (8.4-10.2) mg/dL Magnesium 1.8 (1.6-2.6) mg/dL Total Bilirubin 0.7 (0.0-1.0) mg/dL Direct Bilirubin 0.3 (0.0-0.5) mg/dL AST 28 D (5-31) U/L ALT 33 H (0-31) U/L Alkaline Phosphatase 92 (39-117) U/L Ammonia (13-55) umol/L Troponin I High Sens (<3.5-17.0) ng/L Total Protein 6.0 L (6.5-8.0) g/dL Albumin 3.8 (3.5-5.0) g/dL Lipase 10 (8-78) U/L Procalcitonin ng/mL Salicylates < 5.0 L (15-30) mg/dL Urine Opiates Screen (Not Detect) Ur Barbiturates Screen (Not Detect) Ur Phencyclidine Scrn (Not Detect) Ur Amphetamines Screen (Not Detect) U Benzodiazepines Scrn (Not Detect) Urine Cocaine Screen (Not Detect) U Marijuana (THC) Screen (Not Detect) Ethyl Alcohol < 10 mg/dL COVID-19 (DEA) (Negative) COVID-19 Clin Com 03/11/21 03/11/21 03/11/21 Range/Units 14:42 14:50 15:32 WBC (4.8-10.8) X10*3/uL RBC (4.20-5.50) X10*6/uL Hgb (12.0-16.0) g/dl Hct (37-47) % MCV (80-98) fL MCH (27.0-33.0) pg MCHC (31.0-35.0) g/dl RDW (11.0-16.0) % Plt Count (160-400) X10*3/uL MPV (9.4-12.3) fL Immature Gran % (Auto) (0.0-0.4) % Neut % (Auto) (45-73) % Lymph % (Auto) (20-40) % [place] % (Auto) (2-11) % Eos % (Auto) (0-4) % Baso % (Auto) (0-2) % Lymph # (Auto) (1.2-4.9) X10*3/uL [place] # (Auto) (0.1-1.2) X10*3/uL Eos # (Auto) (0.0-0.4) X10*3/uL Baso # (Auto) (0.0-0.2) X10*3/uL Abs Immat Gran (auto) (0.00-0.03) X10*3/uL Absolute Neuts (auto) (2.0-8.3) X10*3/uL Absolute Nucleated RBC (0.0-0.012) X10*3/uL Nucleated RBC % (auto) (0.0-0.2) /100WBC PT (10.8-13.0) SEC INR (0.9-1.1) APTT (24.1-38.0) SEC VBG pH 7.49 H (7.32-7.43) VBG pCO2 25 mmHg VBG pO2 132 mmHg VBG HCO3 19 L (22-26) mmol/L VBG O2 Saturation 99.0 % VBG Base Excess -2.9 mmol/L Sodium (135-145) mmol/L Potassium (3.3-5.1) mmol/L Chloride (96-108) mmol/L Carbon Dioxide (22-29) mmol/L Anion Gap (12-20) BUN (9-16) mg/dL Creatinine (0.5-1.4) mg/dL Estim Creat Clear Calc Estimated GFR Random Glucose (60-115) mg/dL Lactic Acid (0.5-2.0) mmol/L Calcium (8.4-10.2) mg/dL Magnesium (1.6-2.6) mg/dL Total Bilirubin (0.0-1.0) mg/dL Direct Bilirubin (0.0-0.5) mg/dL AST (5-31) U/L ALT (0-31) U/L Alkaline Phosphatase (39-117) U/L Ammonia (13-55) umol/L Troponin I High Sens < 3.5 (<3.5-17.0) ng/L Total Protein (6.5-8.0) g/dL Albumin (3.5-5.0) g/dL Lipase (8-78) U/L Procalcitonin ng/mL Salicylates (15-30) mg/dL Urine Opiates Screen Not Detected (Not Detect) Ur Barbiturates Screen Not Detected (Not Detect) Ur Phencyclidine Scrn Not Detected (Not Detect) Ur Amphetamines Screen Not Detected (Not Detect) U Benzodiazepines Scrn Not Detected (Not Detect) Urine Cocaine Screen Not Detected (Not Detect) U Marijuana (THC) Screen Not Detected (Not Detect) Ethyl Alcohol mg/dL COVID-19 (DEA) (Negative) COVID-19 Clin Com ECG Data ECG #1: Attestation: I personally reviewed and interpreted this ECG as follows: ECG interpretation date: 03/11/21 ECG interpretation time: 14:48 Interpretation: Rate: 85 Rhythm: NSR [place]: normal Normal P waves. Normal [place]. Normal QRS complex. ST T wave : inverted V1-V2, no MARINE qTC: normal prior studies: no acute ischemia The study has been interpreted contemporaneously by me. . Discharge Plan Discharge Clinical Impression: Weakness Prescriptions: No Action Lantus Solostar U-100 Insulin 100 unit/mL (3 mL) insulin pen 30 unit subcut QPM 30 Days Qty: 9 RF: 11 insulin aspart U-100 [Novolog Flexpen U-100 Insulin] 100 unit/mL (3 mL) insulin pen See Rx Instructions unit subcut QIDACHS 30 Days Qty: 15 RF: 11 (DME) pen needle, diabetic [BD Shantell 2nd Gen Pen Needle] 32 gauge x 5/32 needle See Rx Instructions .MEDSUPPLY Qty: 400 RF: 0 fluoxetine 20 mg capsule 60 mg PO DAILY 30 Days Qty: 90 RF: 0 pregabalin 300 mg capsule 300 mg PO BID 30 Days Qty: 180 RF: 1 furosemide 20 mg tablet 20 mg PO Q8H PRN (Reason: edema) 15 Days Qty: 45 RF: 1 atorvastatin 40 mg tablet 40 mg PO DAILY 30 Days Qty: 30 RF: 11 buprenorphine 15 mcg/hour patch weekly 1 patch transdermal Q7D Qty: 4 RF: 1 oxycodone 10 mg tablet 10 mg PO DAILY PRN (Reason: pain) 30 Days Qty: 30 RF: 0 (DME) FreeStyle Lite Strips Strip See Rx Instructions ea Not Applicable QID Qty: 10 RF: 0 metformin 500 mg tablet extended release 24 hr 1,000 mg PO BID 30 Days Qty: 120 RF: 11 Trulicity 1.5 mg/0.5 mL pen injector 1.5 mg subcut QWEEK 30 Days Qty: 2.5 RF: 11 (DME) blood-glucose meter [FreeStyle Lite Meter] Kit See Rx Instructions .ROUTE .MEDSUPPLY Qty: 1 RF: 0 (DME) FreeStyle Lite Strips Strip See Rx Instructions .ROUTE .MEDSUPPLY Qty: 100 RF: 11 (DME) lancets [FreeStyle Lancets] 28 gauge misc See Rx Instructions .ROUTE .MEDSUPPLY Qty: 100 RF: 11 fluticasone propion-salmeterol [Advair Diskus] 100-50 mcg/dose blister with device 1 inh inhalation BID 30 Days Qty: 1 RF: 0
[2021-03-11] MEDS: 0.9 % Sodium Chloride 1,000 ML 999 ML IVCONT (14:44)
[2021-03-11 14:48] LABS: MANUAL DIFF FLAG NO
[2021-03-11 14:50] LABS: Basophils Percent Auto 0.3 % (0-2); Eosinophils Absolute Auto 0.2 X10*3/uL (0.0-0.4); Eosinophils Percent Auto 1.7 % (0-4); Hematocrit 35.5 % (37-47); Hemoglobin 11.5 g/dl (12.0-16.0); Imm Gran Abs Auto 0.02 X10*3/uL (0.00-0.03); Imm Gran Pct Auto 0.2 % (0.0-0.4); Lymphocytes Absolute Auto 1.9 X10*3/uL (1.2-4.9); Lymphocytes Percent Auto 20.1 % (20-40); Mean Corpuscular HGB Conc 32.4 g/dl (31.0-35.0); Mean Corpuscular Hemoglobin 28.1 pg (27.0-33.0); Mean Corpuscular Volume 86.8 fL (80-98); Mean Platelet Volume 8.8 fL (9.4-12.3); Monocytes Absolute Auto 0.6 X10*3/uL (0.1-1.2); Neutrophils Absolute Auto 6.9 X10*3/uL (2.0-8.3); Neutrophils Percent Auto 71.7 % (45-73); Platelet Count 271 X10*3/uL (160-400); Red Blood Count 4.09 X10*6/uL (4.20-5.50); Red Cell Distribution Width 13.8 % (11.0-16.0); White Blood Count 9.6 X10*3/uL (4.8-10.8)
[2021-03-11 14:58] LABS: INTERNATIONAL NORM RATIO 1.1 (0.9-1.1); Prothrombin Time 13.6 SEC (10.8-13.0)
[2021-03-11 15:00] LABS: VBG Base Excess -2.9 mmol/L; VBG HCO3 19 mmol/L (22-26); VBG pCO2 25 mmHg; VBG pH 7.49 (7.32-7.43); VBG pO2 132 mmHg
[2021-03-11 15:00] LABS: Partial Thromboplastin Time 35.9 SEC (24.1-38.0)
--- NOTE | 2021-03-11 15:01 | PC.NURSE ---
PT TO CT, WILL MEDICATE WITH TYLENOL UPON ARRIVAL BACK
[2021-03-11 15:03] LABS: Venous Blood Gas Refer to POC result
[2021-03-11 15:11] LABS: COVID-19 Test Negative (Negative); IDNOW Serial# 08D9AD1C
--- NOTE | 2021-03-11 15:14 | HE.PHANOTE ---
Pharmacy Consult ? Medication Reconciliation Pharmacy has completed the medication reconciliation and there were no significant medication issues requiring provider attention. Danita Pierce, PharmD [phone]
[2021-03-11 15:20] LABS: Ammonia 23 umol/L (13-55)
[2021-03-11 15:24] LABS: Lactic Acid 0.9 mmol/L (0.5-2.0)
[2021-03-11] MEDS: Acetaminophen 325 MG TABLET 650 MG PO (15:24)
[2021-03-11 15:25] LABS: Ethanol < 10 mg/dL
[2021-03-11 15:30] LABS: Alanine Aminotransferase 33 U/L (0-31); Albumin Level 3.8 g/dL (3.5-5.0); Alkaline Phosphatase 92 U/L (39-117); Aspartate Amino Transferase 28 U/L (5-31); Bilirubin Direct 0.3 mg/dL (0.0-0.5); Bilirubin Total 0.7 mg/dL (0.0-1.0); Lipase 10 U/L (8-78); Magnesium 1.8 mg/dL (1.6-2.6); Salicylate < 5.0 mg/dL (15-30)
[2021-03-11 15:33] LABS: Troponin-I High Sensitivity < 3.5 ng/L (<3.5-17.0)
[2021-03-11 15:40] VITALS: BP 152/83; PULSE 83; RESP 17; TEMP 37.1; O2SAT 100
[2021-03-11 15:56] LABS: Procalcitonin 0.02 ng/mL
[2021-03-11 16:01] LABS: Amphetamine Screen Urine Not Detected (Not Detect); Barbiturates, Urine Not Detected (Not Detect); Benzodiazepines Screen Urine Not Detected (Not Detect); Cannabinoid Screen Urine Not Detected (Not Detect); Cocaine Screen Urine Not Detected (Not Detect); Opiate Screen Urine Not Detected (Not Detect); Phencyclidine Screen Urine Not Detected (Not Detect)
[2021-03-11 16:24] VITALS: TEMP 37
[2021-03-11 16:38] LABS: Anion Gap 11 (12-20); Blood Urea Nitrogen 10 mg/dL (9-16); Calcium 8.6 mg/dL (8.4-10.2); Carbon Dioxide 29 mmol/L (22-29); Chloride 104 mmol/L (96-108); Estimated Glomerular Filt Rate > 60; Glucose Random 119 mg/dL (60-115); Potassium 4.4 mmol/L (3.3-5.1); Sodium 140 mmol/L (135-145)
[2021-03-11 16:56] LABS: Glucose Urine UA NEG (NEG); Leukocyte Esterase Urine NEG (NEG); Nitrite Urine NEG (NEG); PH 6.5 (5.0-8.0); Urine Blood NEG (NEG); Urine Ketones NEG (NEG); Urine Protein NEG (NEG-TRACE)
[2021-03-11 17:19] LABS: Appearance Urine CLEAR; Color Urine STRAW
== END 2021-03-11 17:43 | disposition home or self-care (01) ==
PROVIDERS: Emergency Medicine; Emergency Provider Internal Medicine; PCP Physician Assistant
DX: R41.82 Altered mental status, unspecified (principal); R53.1 Weakness; G89.29 Other chronic pain; E11.9 Type 2 diabetes mellitus without complications; Z79.4 Long term (current) use of insulin; Z79.899 Other long term (current) drug therapy; Z20.822 Contact with and (suspected) exposure to COVID-19
CPT/HCPCS: 36415; 70450; 71045; 80048; 80076; 80179; 80307; 81003; 82077; 82140; 83605; 83690; 83735; 84145; 84484; 85025; 85610; 85730; 87040; 87635; 93005; 99285

== ENCOUNTER → 2021-03-30 14:26 | Outpatient (BNVA) | payer OTHER, SELFPAY | PROVIDERS: PCP Physician Assistant; Visit Provider Family Medicine Adult Medicine | DX: M96.1 Postlaminectomy syndrome, not elsewhere classified (principal); J45.909 Unspecified asthma, uncomplicated | CPT/HCPCS: 99212 ==

== ENCOUNTER 2021-04-16 11:50 | Outpatient (REF) | payer OTHER, SELFPAY ==
--- NOTE | ~2021-04-16 | XR_ITS ---
EXAMINATION: XR KNEE, RIGHT CLINICAL INFORMATION: Right knee arthritis COMPARISON: None TECHNIQUE: Four views of the right knee. FINDINGS: Bone alignment is normal. No fracture or dislocation is seen. There is arthritis at the medial femoral tibial and patellofemoral joints with joint space narrowing and osteophyte formation. There is no joint effusion. XR/XR knee RT 4V IMPRESSION: Arthritis at the medial femoral tibial and patellofemoral joints.
--- NOTE | ~2021-04-16 | XR_ITS ---
EXAMINATION: XR RIBS, LEFT CLINICAL INFORMATION: Pleurodynia COMPARISON: Previous chest x-ray most recent 03/11/2021 TECHNIQUE: 3 views of the left ribs and one view of the chest were obtained. FINDINGS: The cardiac and mediastinal contours are normal. The lungs are clear. There is no pleural effusion or pneumothorax. There are degenerative changes of the thoracic spine. There are postsurgical changes of the cervical spine. No rib fracture or bone lesion is seen. XR/XR ribs LT min 3V w CXR1V IMPRESSION: No evidence for acute disease in the chest. No left rib fracture or bone lesion is seen.
== END 2021-04-16 11:51 | disposition home or self-care (01) ==
LOC: HO.XRAY 11:50
PROVIDERS: PCP Physician Assistant; Visit Provider Physician Assistant
DX: M17.11 Unilateral primary osteoarthritis, right knee (principal); R07.81 Pleurodynia
CPT/HCPCS: 71101; 73564

== ENCOUNTER → 2021-04-19 11:14 | Outpatient (BNVA) | payer OTHER, SELFPAY | PROVIDERS: PCP Physician Assistant; Visit Provider Dietitian, Registered | DX: E11.65 Type 2 diabetes mellitus with hyperglycemia (principal); Z79.4 Long term (current) use of insulin | CPT/HCPCS: 97803 ==

== ENCOUNTER → 2021-04-21 11:06 | Outpatient (BNVA) | payer OTHER, SELFPAY | PROVIDERS: PCP Physician Assistant; Visit Provider Internal Medicine | DX: E11.65 Type 2 diabetes mellitus with hyperglycemia (principal); E78.5 Hyperlipidemia, unspecified; I10 Essential (primary) hypertension; Z79.4 Long term (current) use of insulin | CPT/HCPCS: 82947; 99212 ==

== ENCOUNTER → 2021-04-27 13:48 | Outpatient (BNVA) | payer OTHER, SELFPAY | PROVIDERS: PCP Physician Assistant; Visit Provider Family Medicine Adult Medicine | DX: M96.1 Postlaminectomy syndrome, not elsewhere classified (principal); J45.909 Unspecified asthma, uncomplicated | CPT/HCPCS: 99212 ==

== ENCOUNTER → 2021-05-03 09:52 | Outpatient (BNVA) | payer OTHER, SELFPAY | PROVIDERS: Visit Provider Orthopaedic Surgery | DX: M17.11 Unilateral primary osteoarthritis, right knee (principal); M96.1 Postlaminectomy syndrome, not elsewhere classified; M79.7 Fibromyalgia; E11.65 Type 2 diabetes mellitus with hyperglycemia | CPT/HCPCS: 99202 ==

== ENCOUNTER → 2021-05-25 14:12 | Outpatient (BNVA) | payer OTHER, SELFPAY | PROVIDERS: Visit Provider Nurse Practitioner Family | DX: M96.1 Postlaminectomy syndrome, not elsewhere classified (principal); M17.11 Unilateral primary osteoarthritis, right knee | CPT/HCPCS: 99212 ==

== ENCOUNTER 2021-06-02 14:11 | Outpatient (REF) | payer OTHER, SELFPAY ==
--- NOTE | ~2021-06-02 | MM_ITS ---
EXAMINATION: MM SCREENING DIGITAL BREAST TOMOSYNTHESIS, BILATERAL CLINICAL INFORMATION: Screening. Asymptomatic. The lifetime risk of breast cancer based on the Tyrer-Cuzick Model is 10%. COMPARISON: Mammography: 06/12/2018, 07/18/2016, 12/29/2014 TECHNIQUE: Digital breast tomosynthesis is performed in both the craniocaudal and mediolateral oblique views along with computer-aided detection (CAD). Synthesized 2D images are generated from the tomosynthesis. FINDINGS: There are scattered areas of fibroglandular density (ACR BI-RADS breast composition Category b). There are no significant masses, abnormal calcifications, or other abnormalities. Parenchymal pattern is similar to prior studies. There are multiple axillary nodes with abundant fatty hilus similar to prior exams. The skin contours are unremarkable. MM/MM tomosynthesis screening BI IMPRESSION: No mammographic evidence of malignancy. ASSESSMENT: BI-RADS 2: Benign RECOMMENDATION: Routine annual mammography screening. This patient's information was entered into a reminder system with a target due date for their next mammogram.
== END 2021-06-02 14:12 | disposition home or self-care (01) ==
LOC: HO.MAMMO 14:11
PROVIDERS: Visit Provider Physician Assistant
DX: Z12.31 Encounter for screening mammogram for malignant neoplasm of breast (principal)
CPT/HCPCS: 77063; 77067

== ENCOUNTER → 2021-06-22 11:29 | Outpatient (BNVA) | payer OTHER, SELFPAY | PROVIDERS: PCP Physician Assistant; Visit Provider Nurse Practitioner Family | DX: M17.11 Unilateral primary osteoarthritis, right knee (principal); M96.1 Postlaminectomy syndrome, not elsewhere classified; M48.00 Spinal stenosis, site unspecified; E11.9 Type 2 diabetes mellitus without complications; E78.5 Hyperlipidemia, unspecified; E55.9 Vitamin D deficiency, unspecified; I10 Essential (primary) hypertension; Z79.4 Long term (current) use of insulin; Z79.891 Long term (current) use of opiate analgesic; Z79.899 Other long term (current) drug therapy | CPT/HCPCS: 99212 ==

== ENCOUNTER 2021-06-29 07:52 | Outpatient (REF) | payer OTHER, SELFPAY | END 2021-06-29 07:53 | disposition home or self-care (01) | LOC: HO.RADIR 07:52 | PROVIDERS: Visit Provider Anesthesiology | DX: Z13.89 Encounter for screening for other disorder (principal) ==

== ENCOUNTER 2021-08-02 08:35 | Outpatient (REF) | payer OTHER, SELFPAY ==
--- NOTE | ~2021-08-02 | XR_ITS ---
EXAMINATION: XR KNEE AP STANDING CLINICAL INFORMATION: Pain in unspecified knee. COMPARISON: Right knee done on 04/16/2021. TECHNIQUE: AP bilateral standing view of the knees was obtained. FINDINGS: The right knee shows asymmetric decreased joint space, subchondral sclerosis, osteophyte formation, consistent with moderate medial compartmental osteoarthrosis. The left knee show symmetric joint space between the medial and lateral compartment with normal articular surface no evidence of any osteophyte, appear unremarkable. No focal osseous lesion. XR/XR knee standing BI IMPRESSION: Single upright radiographs of both knees shows moderate osteoarthrosis of the medial compartment of the right knee and unremarkable appearance of the left knee.
== END 2021-08-02 08:36 | disposition home or self-care (01) ==
LOC: HO.HOSX 08:35
PROVIDERS: Visit Provider Orthopaedic Surgery
DX: M17.11 Unilateral primary osteoarthritis, right knee (principal); M96.1 Postlaminectomy syndrome, not elsewhere classified
CPT/HCPCS: 73565; 99212

== ENCOUNTER 2021-08-14 08:50 | Outpatient (REF) | payer OTHER, SELFPAY ==
[2021-08-14 10:51] LABS: Hematocrit 43.1 % (37.0-47.0); Hemoglobin 13.8 g/dl (12.0-16.0); Mean Corpuscular Hemoglobin 28.8 pg (27.0-33.0); Mean Platelet Volume 9.3 fL (9.4-12.3); Platelet Count 294 X10*3/uL (160-400); Red Blood Count 4.79 X10*6/uL (4.20-5.50); Red Cell Distribution Width 13.4 % (11.0-16.0); White Blood Count 10.2 X10*3/uL (4.8-10.8)
[2021-08-14 10:56] LABS: Estimated Average Glucose 209 mg/dL; Hemoglobin A1c % 8.9 %
[2021-08-14 10:56] LABS: Creatinine Urine 66.66 mg/dL; Microalbum/Creatinine Ratio Ur 58.5 ug/mg cr
[2021-08-14 11:00] LABS: Alanine Aminotransferase 25 U/L (0-31); Albumin Level 4.3 g/dL (3.5-5.0); Alkaline Phosphatase 94 U/L (39-117); Anion Gap 15 (12-20); Aspartate Amino Transferase 16 U/L (5-31); Bilirubin Total 0.5 mg/dL (0.0-1.0); Blood Urea Nitrogen 15 mg/dL (9-16); Calcium 9.1 mg/dL (8.4-10.2); Carbon Dioxide 22 mmol/L (22-29); Chloride 106 mmol/L (96-108); Cholesterol 176 mg/dL; Estimated Glomerular Filt Rate > 60; Glucose Fasting 242 mg/dL (60-99); HDL Cholesterol 39 mg/dL; LDL Cholesterol Calculated 105 mg/dl; Potassium 4.6 mmol/L (3.3-5.1); Sodium 138 mmol/L (135-145); Triglycerides 160 mg/dL
[2021-08-14 11:21] LABS: TSH reflex Free T4 1.33 uIU/mL (0.32-4.0)
[2021-08-15 07:21] LABS: LDL Cholesterol Direct 113 mg/dL (<100)
== END 2021-08-14 08:51 | disposition home or self-care (01) ==
LOC: HO.LAB 08:50
PROVIDERS: Absent Provider Physician Assistant; PCP Physician Assistant; Visit Provider Internal Medicine
DX: I10 Essential (primary) hypertension (principal); E11.65 Type 2 diabetes mellitus with hyperglycemia; Z79.4 Long term (current) use of insulin
CPT/HCPCS: 36415; 80053; 80061; 82043; 83036; 83721; 84443; 85027

== ENCOUNTER 2021-08-24 06:41 | Outpatient (REF) | payer OTHER, SELFPAY ==
--- NOTE | ~2021-08-24 | FL_ITS ---
EXAMINATION: XR FLUOROSCOPY WITH IMAGES CLINICAL INFORMATION: Primary osteoarthritis COMPARISON: None. TECHNIQUE: Fluoroscopy performed by Dr. Ismael Umana. Fluoroscopy time: 0.2 minutes DAP: 1.58 Gycm2 Images: 2 FINDINGS: Spinal needles targeting geniculate nerves. FL/FL guidance in treatment room IMPRESSION: Fluoroscopy for geniculate nerve injections. Please see the operative report for further information.
== END 2021-08-24 06:42 | disposition home or self-care (01) ==
LOC: HO.RADIR 06:41
PROVIDERS: Visit Provider Anesthesiology
DX: M17.11 Unilateral primary osteoarthritis, right knee (principal); M96.1 Postlaminectomy syndrome, not elsewhere classified; M54.9 Dorsalgia, unspecified; E11.9 Type 2 diabetes mellitus without complications; Z79.899 Other long term (current) drug therapy
CPT/HCPCS: 64454

== ENCOUNTER → 2021-09-01 08:31 | Outpatient (BNVA) | payer OTHER, SELFPAY | PROVIDERS: PCP Physician Assistant; Visit Provider Anesthesiology | DX: M17.11 Unilateral primary osteoarthritis, right knee (principal); M96.1 Postlaminectomy syndrome, not elsewhere classified | CPT/HCPCS: 99212 ==

== ENCOUNTER 2021-12-18 10:47 | Emergency (ER) | payer OTHER, SELFPAY ==
[2021-12-18 11:26] VITALS: BP 157/82; PULSE 77; RESP 17; TEMP 36.7; O2SAT 99; BMI 42.5
--- NOTE | 2021-12-18 13:22 | ED_ITS ---
HPI - Back Pain/Injury General Chief Complaint: Back Pain/Injury Stated Complaint: Back pain/leg pain Time Seen by Provider: 12/18/21 12:57 Source: patient Mode of arrival: ambulatory History of Present Illness HPI Narrative: 51-year-old female with a past medical history of arthritis, asthma, diabetes, HLD, HTN, spinal stenosis, sleep apnea, failed back syndrome cervical and lumbar, presenting to the ED complaining of acute on chronic left-sided low back pain radiating down LLE x4 days. Admits woke up with pain, denies injury/trauma or fall. Pain worse with movement. Denies numbness, tingling, weakness, urinary incontinence/retention Previously managed by pain management however suspended indefinitely from opiate program for urine testing positive for methadone MD elicited complaint: back pain Pertinent past history: prior back pain Onset (ago): day(s) Related Data Home Medications Medication Instructions Recorded Confirmed blood sugar diagnostic #10 ea 11/12/20 11/01/21 Previous Rx's Medication Instructions Recorded blood sugar diagnostic (FreeStyle #100 ea 11/12/20 Lite Strips) blood-glucose meter (FreeStyle #1 ea 11/12/20 Lite Meter) lancets 28 gauge (FreeStyle #100 ea 11/12/20 Lancets) metformin 500 mg tablet,extended 1,000 mg PO BID 30 Days #120 tab 11/12/20 release 24 hr insulin aspart U-100 100 unit/mL See Rx Instructions SUBCUT QIDACHS 11/25/20 (3 mL) subcutaneous pen (Novolog 30 Days #15 ml Flexpen U-100 Insulin aspart) pen needle, diabetic 32 gauge x #400 ea 11/30/20 (BD Shantell 2nd Gen Pen Needle) atorvastatin 40 mg tablet 40 mg PO DAILY 30 Days #30 tab 02/15/21 furosemide 20 mg tablet 20 mg PO Q8H PRN 15 Days #45 tab 03/01/21 losartan 25 mg tablet 25 mg PO DAILY 30 Days #30 tab 04/14/21 dulaglutide 3 mg/0.5 mL 3 mg (0.5 mL) SUBCUT QWEEK 30 Days 04/21/21 subcutaneous pen injector #2.5 ml (Trulicity) pregabalin 300 mg capsule 300 mg PO BID 90 Days #180 cap 11/01/21 sumatriptan succinate 100 mg tablet See Rx Instructions PO .COMPLEX 30 11/01/21 Days #12 tab fluoxetine 20 mg capsule 60 mg PO DAILY 30 Days #90 cap 12/06/21 insulin glargine 100 unit/mL (3 30 unit (0.3 mL) SUBCUT QPM 30 12/13/21 mL) subcutaneous pen (Lantus Days #15 ml Solostar U-100 Insulin) acetaminophen 500 mg tablet 500 mg PO Q6H PRN #20 tab 12/18/21 (Tylenol Extra Strength) cyclobenzaprine 10 mg tablet 10 mg PO TID PRN #14 tab 12/18/21 lidocaine 5 % topical patch 1 patch TOPICAL DAILY PRN #30 ea 12/18/21 (Lidoderm) MDD remove after 12 hours naproxen 500 mg tablet 500 mg PO BID PRN 10 Days #20 tab 12/18/21 Allergies Allergy/AdvReac Type Severity Reaction Status Date / Time baclofen [BACLOFEN] Allergy Unknown CAN'T Verified 11/01/21 14:54 STAND, MEMORY LOSS, memory loss lisinopril Allergy Unknown increased Verified 11/01/21 14:54 creatinine? Review of Systems Review of Systems: Constitutional: No Fever, No Chills ENT/Mouth: No Ear Pain, No sore throat, No Rhinorrhea, No Swallowing Difficulty Cardiovascular: No Chest Pain, No SOB Respiratory: No Cough, No Sputum Gastrointestinal: No Nausea, No Vomiting, No Diarrhea, No Constipation, No Abdominal pain Genitourinary:No Dysuria, No Urinary Frequency, No Hematuria, No Urinary Incontinence/retention, No Flank Pain Musculoskeletal: +back pain, No Myalgias, No Joint Swelling Skin: No Skin Lesions, No rash Neuro: No Weakness, No Numbness, No Paresthesias Yes all other systems are reviewed and are negative Neurologic: Denies Sensory deficit (Neuro) [facility] Past Medical History Attestation statement: The following information was validated with the patient. Medical History Arthritis Asthma Back pain with history of spinal surgery Degenerative disorder of bone Diabetes mellitus, type 2 Failed back syndrome, cervical Failed back syndrome, lumbar HLD (hyperlipidemia) HTN (hypertension) Sleep apnea Spinal stenosis T2DM (type 2 diabetes mellitus) Vitamin D deficiency Surgical History History of arthroscopy of right knee History of cataract surgery History of section History of laminectomy History of microdiscectomy History of nasal surgery History of tonsillectomy History of umbilical hernia repair Hx laparoscopic cholecystectomy Hx of eye surgery Family History Family History Father Substance use disorder Lung cancer Mother Substance use disorder Maternal Grandmother Colon cancer Sister Diabetes Son Malabsorption Asthma Tracheomalacia Other Mental health disorder Social History Social History Household Members: Children Household Members Other:: lives w/ 2 kids next to sister. Housing: House Housing Other:: duplex Do you presently have visiting nurse or other home services: No Alcohol intake: current Alcohol intake frequency: holidays/special occasions only Patient Tobacco Use Status: Never used Tobacco e-Cigarette/Vaping Use: Never Used Second Hand Smoke Exposure: No Advance Directives: No Patient : No service: No Current occupational status: disabled Physical Exam Vital Signs: Vital Signs: Last Vital Signs Temp 98.0 F 12/18/21 11:26 Pulse 77 12/18/21 11:26 Resp 17 12/18/21 11:26 BP 157/82 H 12/18/21 11:26 Pulse Ox 99 12/18/21 11:26 BMI result Body Mass Index 42.5 Const: General: cooperative and no acute distress Nutritional Appearance: obese Orientation/consciousness: patient oriented x3 Limitations: no limitations HENMT: Head: Yes normal to inspection Ears: hearing grossly normal bilaterally General nose exam: Normal external nose present Face and sinu s: Yes normal facial exam Eyes: General: appearance normal, both eyes and all related structures EOM: EOMs intact bilaterally Neck: Neck: Yes normal visual inspection Resp: Effort & Inspection: normal respiratory effort and no respiratory distress Cardio: Rate: regular rate Peripheral pulses: dorsalis pedis present : General: Yes no CVA tenderness Back/Spine/Pelvis: Other: No midline thoracic/lumbar spinous tenderness/upper for deformity. + left-sided buttock/paraspinal tenderness to palpation reproducing subjective complaints Back: no CVA tenderness Skin: Rashes: no rashes Wounds: no wounds Neuro: Other: Ambulating with steady gait with cane. No saddle anesthesia. General: patient oriented x3, gait normal, tone normal and moves all extremities Gait exam (Neuro): Normal gait present Motor exam (neuro): 5/5 motor strength present throughout Sensory Exam: No Sensory deficit (Neuro) Extrem: General: Yes normal to inspection MDM - Back Pain/Injury MDM Narrative Medical decision making narrative: 51-year-old female with a past medical history of arthritis, asthma, diabetes, HLD, HTN, spinal stenosis, sleep apnea, failed back syndrome cervical and lumbar, presenting to the ED complaining of acute on chronic left-sided low back pain radiating down LLE x4 days. On exam vital signs stable, in the ED/nontoxic-appearing, physical exam as above, no midline spinous tenderness throughout, no red flag symptoms, no saddle anesthesia, ambulating with steady gait with cane. Likely acute on chronic exacerbation of back pain. Low concern for cauda equina/cord compression, epidural abscess Plan: Pain control, PCP follow-up Differential Diagnosis Differential diagnosis: Likely lumbar radiculopathy, sciatica and strain of lumbar region Medical Records Attestation: I reviewed the patient's medical records. Lab Data Attestation: I reviewed the patient's lab results. Discharge Plan Discharge Clinical Impression: Lumbar radiculopathy Patient Disposition: Home, Self-Care Instructions: Lumbar Radiculopathy (ED) Additional Instructions: Your pain is likely musculoskeletal It would be beneficial for you to follow-up with pain management/your PCP and Orthopedics again Flexeril is a muscle relaxer, take at night as it makes you drowsy, do not drive, drink alcohol, or operate machinery while taking it Naproxen as an anti-inflammatory / pain medication, take with food Lidoderm patches are numbing patches, apply to painful area In addition take Tylenol at home If symptoms persist or worsen, pain becomes unbearable, you developed urinary retention or incontinence, or weakness return to the ED Prescriptions: New cyclobenzaprine 10 mg tablet 10 mg PO TID PRN (Reason: muscle spasm) Qty: 14 0RF acetaminophen [Tylenol Extra Strength] 500 mg tablet 500 mg PO Q6H PRN (Reason: pain or fever) Qty: 20 0RF lidocaine [Lidoderm] 5 % adhesive patch,medicated 1 patch topical DAILY MDD remove after 12 hours PRN (Reason: pain) Qty: 30 0RF Rx Instructions: leave on most painful area for up to 12 hrs naproxen 500 mg tablet 500 mg PO BID PRN (Reason: pain) 10 Days Qty: 20 0RF No Action insulin aspart U-100 [Novolog Flexpen U-100 Insulin] 100 unit/mL (3 mL) insulin pen See Rx Instructions unit subcut QIDACHS 30 Days Qty: 15 11RF Protocol: Insulin Correction Scale Less than or equal to 110 ---- Give (units): 0 111 to 150 Give (units): 0 151 to 200 Give (units): 2 201 to 250 Give (units): 4 251 to 300 Give (units): 6 301 to 350 Give (units): 8 Greater than 350 Give (units): 10 Call MD if Blood Glucose > : 350 Rx Instructions: Up to a total daily dose of 30 units via sliding scale subcut 4 times a day before meal/bed; (DME) pen needle, diabetic [BD Shantell 2nd Gen Pen Needle] 32 gauge x 5/32 needle See Rx Instructions .MEDSUPPLY Qty: 400 0RF Rx Instructions: 5 times a day furosemide 20 mg tablet 20 mg PO Q8H PRN (Reason: edema) 15 Days Qty: 45 1RF fluoxetine 20 mg capsule 60 mg PO DAILY 30 Days Qty: 90 3RF Lantus Solostar U-100 Insulin 100 unit/mL (3 mL) insulin pen 30 unit subcut QPM 30 Days Qty: 15 6RF losartan 25 mg tablet 25 mg PO DAILY 30 Days Qty: 30 3RF sumatriptan succinate 100 mg tablet See Rx Instructions PO .COMPLEX 30 Days Qty: 12 3RF Rx Instructions: take 1 tab at onset of headache; if no relief, may repeat 1 tab after at least 2 hrs; max = 2 tabs/24 hrs PO pregabalin 300 mg capsule 300 mg PO BID 90 Days Qty: 180 1RF atorvastatin 40 mg tablet 40 mg PO DAILY 30 Days Qty: 30 11RF Trulicity 3 mg/0.5 mL pen injector 3 mg subcut QWEEK 30 Days Qty: 2.5 11RF (DME) FreeStyle Lite Strips Strip See Rx Instructions ea Not Applicable QID Qty: 10 0RF Rx Instructions: As directed metformin 500 mg tablet extended release 24 hr 1,000 mg PO BID 30 Days Qty: 120 11RF (DME) blood-glucose meter [FreeStyle Lite Meter] Kit See Rx Instructions .ROUTE .MEDSUPPLY Qty: 1 0RF Rx Instructions: As directed (DME) FreeStyle Lite Strips Strip See Rx Instructions .ROUTE .MEDSUPPLY Qty: 100 11RF Rx Instructions: 4x daily (DME) lancets [FreeStyle Lancets] 28 gauge misc See Rx Instructions .ROUTE .MEDSUPPLY Qty: 100 11RF Rx Instructions: 4x daily Referrals: Collin Arteaga PA-C [Primary Care Provider] - 2 days Kwame Saha MD [Physician] - 1 week
[2021-12-18] MEDS: Cyclobenzaprine HCl 10 MG TABLET PO (13:47)
== END 2021-12-18 14:10 | disposition home or self-care (01) ==
PROVIDERS: Emergency Provider Emergency Medicine; PCP Physician Assistant
DX: M54.16 Radiculopathy, lumbar region (principal); E11.9 Type 2 diabetes mellitus without complications; I10 Essential (primary) hypertension; E78.5 Hyperlipidemia, unspecified; Z79.4 Long term (current) use of insulin; Z79.02 Long term (current) use of antithrombotics/antiplatelets
CPT/HCPCS: 99283

== ENCOUNTER 2021-12-22 11:23 | Outpatient (REF) | payer OTHER, SELFPAY ==
--- NOTE | ~2021-12-22 | XR_ITS ---
EXAMINATION: XR LUMBOSACRAL SPINE CLINICAL INFORMATION: Sciatica left side. COMPARISON: None TECHNIQUE: Three views of the lumbosacral spine. FINDINGS: There is mild straightening of the lumbar lordosis. The vertebral heights and alignment are normal. There is mild loss of L2 2-3, L3-L4 disc heights with ventral spondylosis. Rest of the disc heights are normal. No acute fracture, dislocation or lytic process seen. Bilateral SI joints are unremarkable. The sacrum appears unremarkable. XR/XR lumbar spine 2-3V IMPRESSION: Degenerative disc changes with spondylosis L2-L3 and L3-L4 disc levels. No visible acute fracture or dislocation seen.
== END 2021-12-22 11:24 | disposition home or self-care (01) ==
LOC: HO.XRAY 11:23
PROVIDERS: PCP Physician Assistant; Visit Provider Physician Assistant
DX: M54.32 Sciatica, left side (principal)
CPT/HCPCS: 72100

== ENCOUNTER → 2021-12-27 13:52 | Outpatient (BNVA) | payer OTHER, SELFPAY | PROVIDERS: PCP Physician Assistant; Visit Provider Orthopaedic Surgery | DX: M54.32 Sciatica, left side (principal); M17.11 Unilateral primary osteoarthritis, right knee; M89.8X9 Other specified disorders of bone, unspecified site; I10 Essential (primary) hypertension; E78.5 Hyperlipidemia, unspecified; E55.9 Vitamin D deficiency, unspecified; Z88.8 Allergy status to other drugs, medicaments and biological substances | CPT/HCPCS: 99212 ==

== ENCOUNTER → 2022-01-04 08:00 | Outpatient (BNVA) | payer OTHER, SELFPAY | PROVIDERS: PCP Physician Assistant; Visit Provider Nurse Practitioner Family | DX: M96.1 Postlaminectomy syndrome, not elsewhere classified (principal); M62.830 Muscle spasm of back; M47.816 Spondylosis without myelopathy or radiculopathy, lumbar region; M54.16 Radiculopathy, lumbar region; M54.9 Dorsalgia, unspecified; R29.898 Other symptoms and signs involving the musculoskeletal system | CPT/HCPCS: 99212 ==

== ENCOUNTER 2022-01-05 15:57 | Outpatient (REF) | payer OTHER, SELFPAY ==
[2022-01-05 17:26] LABS: Blood Urea Nitrogen 14 mg/dL (9-16); Estimated Glomerular Filt Rate > 60
== END 2022-01-05 15:58 | disposition home or self-care (01) ==
LOC: HO.LAB 15:57
PROVIDERS: PCP Physician Assistant; Visit Provider Nurse Practitioner Family
DX: Z01.818 Encounter for other preprocedural examination (principal)
CPT/HCPCS: 36415; 82565; 84520

== ENCOUNTER → 2022-01-27 09:28 | Outpatient (BNVA) | payer OTHER, SELFPAY | PROVIDERS: PCP Physician Assistant; Visit Provider Nurse Practitioner Family | DX: M96.1 Postlaminectomy syndrome, not elsewhere classified (principal); M47.816 Spondylosis without myelopathy or radiculopathy, lumbar region; M54.16 Radiculopathy, lumbar region; M54.9 Dorsalgia, unspecified; M48.00 Spinal stenosis, site unspecified; M48.062 Spinal stenosis, lumbar region with neurogenic claudication | CPT/HCPCS: Q3014 ==

== ENCOUNTER 2022-04-14 07:46 | Outpatient (REF) | payer OTHER, SELFPAY ==
[2022-04-14 08:47] LABS: Hemoglobin 11.5 g/dl (12.0-16.0); Mean Corpuscular HGB Conc 32.9 g/dl (31.0-35.0); Mean Corpuscular Hemoglobin 29.9 pg (27.0-33.0); Mean Corpuscular Volume 91.1 fL (80.0-98.0); Platelet Count 250 X10*3/uL (160-400); Red Blood Count 3.84 X10*6/uL (4.20-5.50); Red Cell Distribution Width 13.6 % (11.0-16.0)
[2022-04-14 09:08] LABS: Estimated Average Glucose 180 mg/dL; Hemoglobin A1c % 7.9 %
[2022-04-14 09:22] LABS: Alanine Aminotransferase 30 U/L (0-31); Albumin Level 3.7 g/dL (3.5-5.0); Alkaline Phosphatase 79 U/L (39-117); Anion Gap 14 (12-20); Aspartate Amino Transferase 28 U/L (5-31); Bilirubin Total 0.5 mg/dL (0.0-1.0); Blood Urea Nitrogen 5 mg/dL (9-16); Calcium 8.3 mg/dL (8.4-10.2); Carbon Dioxide 23 mmol/L (22-29); Chloride 103 mmol/L (96-108); Cholesterol 128 mg/dL; Estimated Glomerular Filt Rate > 60; Glucose Fasting 185 mg/dL (60-99); HDL Cholesterol 29 mg/dL; LDL Cholesterol Calculated 52 mg/dl; Potassium 4.1 mmol/L (3.3-5.1); Sodium 136 mmol/L (135-145); Total Protein 6.1 g/dL (6.5-8.0); Triglycerides 236 mg/dL
[2022-04-14 11:09] LABS: Creatinine Urine 104.79 mg/dL; Microalbum/Creatinine Ratio Ur 31.4 ug/mg cr
== END 2022-04-14 07:47 | disposition home or self-care (01) ==
LOC: HO.LAB 07:46
PROVIDERS: PCP Physician Assistant; Visit Provider Physician Assistant
DX: E11.65 Type 2 diabetes mellitus with hyperglycemia (principal); I10 Essential (primary) hypertension; Z79.4 Long term (current) use of insulin
CPT/HCPCS: 36415; 80053; 80061; 82043; 83036; 84443; 85027

== ENCOUNTER 2022-04-15 10:16 | Emergency (ER) | payer OTHER, SELFPAY ==
--- NOTE | 2022-04-15 10:28 | ED_ITS ---
HPI - General Adult General Chief complaint: General Medical Stated complaint: FTT Time Seen by Provider: 04/15/22 10:28 Source: patient and EMS Mode of arrival: EMS Limitations: no limitations History of Present Illness HPI narrative: Patient is a 51 year old female presenting to the emergency department today for a blood glucose evaluation. Patient states that family members of hers are concerned that she isn't taking her insulin as prescribed and that her sugars have been high. Patient denies any dizziness, lightheadedness, abdominal pain, nausea, vomiting, fever, chills, blurry vision, double vision, loss of vision, chest pain, difficulty breathing, shortness of breath, back pain, night sweats, pain with urination, increased urinary frequency, increased urinary urgency, blood in her urine or stool, syncope or a near syncopal episode, recent trauma or falls, bowel incontinence, bladder incontinence, bowel retention, bladder retention, or any other complaints at this time. Relieving factors: none Exacerbating factors: none Associated symptoms: denies other symptoms Treatments prior to arrival: none Related Data Home Medications Medication Instructions Recorded Confirmed blood sugar diagnostic #10 ea 11/12/20 01/04/22 Previous Rx's Medication Instructions Recorded blood-glucose meter (FreeStyle #1 ea 11/12/20 Lite Meter) lancets 28 gauge (FreeStyle #100 ea 11/12/20 Lancets) metformin 500 mg tablet,extended 1,000 mg PO BID 30 days #120 tabs 11/12/20 release 24 hr insulin aspart U-100 100 unit/mL See Rx Instructions subcut QIDACHS 11/25/20 (3 mL) subcutaneous pen (Novolog 30 days #15 mL Flexpen U-100 Insulin aspart) atorvastatin 40 mg tablet 40 mg PO DAILY 30 days #30 tabs 02/15/21 furosemide 20 mg tablet 20 mg PO Q8H PRN edema 15 days #45 03/01/21 tabs losartan 25 mg tablet 25 mg PO DAILY 30 days #30 tabs 04/14/21 dulaglutide 3 mg/0.5 mL 3 mg (0.5 mL) subcut QWEEK 30 days 04/21/21 subcutaneous pen injector #2.5 mL (Trulicity) sumatriptan succinate 100 mg tablet See Rx Instructions PO .COMPLEX 30 11/01/21 days #12 tabs fluoxetine 20 mg capsule 60 mg PO DAILY 30 days #90 caps 12/06/21 insulin glargine 100 unit/mL (3 30 unit (0.3 mL) subcut QPM 30 12/13/21 mL) subcutaneous pen (Lant #15 mL Solostar U-100 Insulin) acetaminophen 500 mg tablet 500 mg PO Q6H PRN pain or fever 12/18/21 (Tylenol Extra Strength) #20 tabs lidocaine 5 % topical patch 1 patch topical DAILY PRN pain #30 12/18/21 (Lidoderm) ea naproxen 500 mg tablet 500 mg PO BID PRN pain 10 days #20 12/18/21 tabs acetaminophen 300 mg-codeine 30 mg 1 tab PO Q8H PRN pain 4 days #12 12/22/21 tablet tabs prednisone 10 mg tablet 10 mg PO DAILY 9 days #18 tabs 12/22/21 tizanidine 4 mg tablet 4 mg PO Q8H PRN muscle spasticity 01/04/22 30 days #90 tabs pregabalin 300 mg capsule 300 mg PO BID 90 days #180 caps 01/27/22 pen needle, diabetic 32 gauge x #400 ea 01/31/22 (Unifine Pentips Plus) blood sugar diagnostic (FreeStyle #100 ea 02/28/22 Lite Strips) Allergies Allergy/AdvReac Type Severity Reaction Status Date / Time baclofen [BACLOFEN] Allergy Unknown CAN'T Verified 01/27/22 09:30 STAND, MEMORY LOSS, memory loss lisinopril Allergy Unknown increased Verified 01/27/22 09:30 creatinine? Review of Systems Constitutional: Constitutional: Reports no additional constitutional complaints, Denies chills, Denies fever(s) and Denies night sweats Eyes: Eyes: Reports no additional eye complaints, Denies blurry vision, Denies change in vision, Denies diplopia, Denies eye discharge, Denies loss of vision and Denies eye pain ENT: Denies dizziness Cardiovascular: Cardiovascular: Reports no additional cardiovascular complaints, Denies chest pain, Denies lightheadedness, Denies Loss of Consciousness and Denies dyspnea Respiratory: Respiratory: Reports no additional respiratory complaints and Denies dyspnea Gastrointestinal: Gastrointestinal: Reports no additional gastrointestinal complaints, Denies abdominal pain, Denies melena, Denies hematochezia, Denies change in bowel habits and Denies change in stool character Genitourinary: Genitourinary: Denies hematuria, Denies urinary frequency, Denies dysuria, Denies urinary incontinence, Denies urinary hesitancy and Denies urinary urgency Musculoskeletal: Musculoskeletal: Reports no additional musculoskeletal complaints, Denies numbness and Denies tingling Neurologic: Denies dizziness, Denies loss of vision, Denies numbness and Denies tingling Psychiatric: Psychiatric: Reports no additional psychiatric complaints Endocrine: Endocrine: Reports no additional endocrine complaints Hematologic/Lymphatic: Hematologic/Lymphatic: Reports no additional hematologic/lymphatic complaints Allergic/Immunologic: Allergic/Immunologic: Reports no additional allergic/immunologic complaints [facility] Past Medical History Attestation statement: The following information was validated with the patient. Source: old records reviewed Medical History Arthritis Asthma Back pain with history of spinal surgery Degenerative disorder of bone Diabetes mellitus, type 2 Failed back syndrome, cervical Failed back syndrome, lumbar HLD (hyperlipidemia) HTN (hypertension) Sleep apnea Spinal stenosis T2DM (type 2 diabetes mellitus) Vitamin D deficiency Surgical History History of arthroscopy of right knee History of cataract surgery History of section History of laminectomy History of microdiscectomy History of nasal surgery History of tonsillectomy History of umbilical hernia repair Hx laparoscopic cholecystectomy Hx of eye surgery Family History Family History Father Substance use disorder Lung cancer Mother Substance use disorder Maternal Grandmother Colon cancer Sister Diabetes Son Malabsorption Asthma Tracheomalacia Other Mental health disorder Social History Social History Household Members: Children Household Members Other:: lives w/ 2 kids next to sister. Housing: House Housing Other:: duplex Do you presently have visiting nurse or other home services: No Alcohol intake: current Alcohol intake frequency: holidays/special occasions only Patient Tobacco Use Status: Never used Tobacco e-Cigarette/Vaping Use: Never Used Second Hand Smoke Exposure: No Advance Directives: Yes Advance Directives Information Provided: No Advance Directives on File: No service: No Current occupational status: disabled Physical Exam ED Vital Signs: Vital Signs - 24 hr 04/15/22 10:30 Temperature 98.1 F Pulse Rate 79 Respiratory Rate 20 Blood Pressure 118/60 Pulse Oximetry 99 Oxygen Delivery Method Room Air BMI result Body Mass Index 49.5 Const General: cooperative, no acute distress, alert and awake Nutritional Appearance: well nourished Orientation/consciousness: patient oriented x3 Limitations: no limitations HENMT Head: Yes normal to inspection and Yes atraumatic Ears: hearing grossly normal bilaterally and external ears normal General nose exam: Normal external nose present, no nasal discharge noted and no epistaxis Face and sinus: Yes normal facial exam, No abrasion and No laceration Mouth: Normal oral and palatal mucosa present, no drooling and no muffled voice Eyes General: appearance normal, both eyes and all related structures Periorbital: periorbital findings normal Eyelids: Yes eyelids normal Conjunctivae: conjunctivae normal Pupils: Equal, round and reactive pupils present EOM: EOMs intact bilaterally Neck Neck: Yes normal visual inspection, Yes full ROM and Yes no lymphadenopathy Chest Chest palpation & inspection: normal inspection of the chest Resp Effort & Inspection: normal respiratory effort and able to speak in complete sentences Auscultation: clear to auscultation bilaterally Cardio Rate: regular rate Rhythm: regular rhythm GI Inspection: Yes normal to inspection Neuro General: patient oriented x3 and moves all extremities Cranial nerves: Yes Equal, round and reactive pupils present Cognition (Neuro): normal cognition Motor exam (neuro): 5/5 motor strength present throughout Sensory Exam: Normal double simultaneous stimulation for sensation Coordination: [id number] test normal Extrem General: Yes normal to inspection, Yes full ROM and Yes capillary refill normal Psych Appearance: grossly normal Mental Status: mental status grossly normal Affect: normal affect Attitude: cooperative Thought process: Normal thought process present Thought content: Normal thought content present Insight: Good insight present (Psych) Medical Decision Making MDM Narrative Medical decision making narrative: Patient is a 51 year old female presenting to the emergency department today for a blood sugar evaluation. Patient's physical exam was unremarkable. Patient's blood work was unremarkable. Patient's urine showed no acute process. Patient's EKG was unremarkable. I explained my physical exam findings as well as all test results to the patient. I answered all questions asked by the patient. Patient received IV fluids which she stated helped her symptoms significantly. I stressed the importance of the patient taking her medication as prescribed. I stressed the importance of the patient following up with her primary care provider. I stressed the importance of the patient returning to the emergency department immediately if she were to develop any dizziness, shortness of breath, difficulty breathing, chest pain, blurry vision, loss of vision, nausea, vomiting, abdominal pain, fever, chills, back pain, or any other complaints. Patient verbalized agreement and understanding with this treatment plan and discharge. Differential Diagnosis Differential Diagnosis: diabetes Medical Records Medical records reviewed: Yes I reviewed the patient's medical records. Lab Data Lab results reviewed: Yes I reviewed the patient's lab results. Result diagrams: 04/15/22 11:21 04/15/22 12:35 Labs: Lab Results 04/15/22 04/15/22 04/15/22 Range/Units 11:21 11:21 11:21 WBC 10.0 (4.8-10.8) X10*3/uL RBC 4.28 (4.20-5.50) X10*6/uL Hgb 12.7 (12.0-16.0) g/dl Hct 38.6 (37.0-47.0) % MCV 90.2 (80.0-98.0) fL MCH 29.7 (27.0-33.0) pg MCHC 32.9 (31.0-35.0) g/dl RDW 13.7 (11.0-16.0) % Plt Count 243 (160-400) X10*3/uL MPV 8.8 L (9.4-12.3) fL Immature Gran % (Auto) 0.4 (0.0-0.4) % Neut % (Auto) 80.6 H (45-73) % Lymph % (Auto) 12.5 L (20-40) % [place] % (Auto) 4.8 (2-11) % Eos % (Auto) 1.4 (0-4) % Baso % (Auto) 0.3 (0-2) % Lymph # (Auto) 1.3 (1.2-4.9) X10*3/uL [place] # (Auto) 0.5 (0.1-1.2) X10*3/uL Eos # (Auto) 0.1 (0.0-0.4) X10*3/uL Baso # (Auto) 0.0 (0.0-0.2) X10*3/uL Abs Immat Gran (auto) 0.04 H (0.00-0.03) X10*3/uL Absolute Neuts (auto) 8.1 (2.0-8.3) x10*3/uL Absolute Nucleated RBC 0.000 (0.0-0.012) X10*3/uL Nucleated RBC % (auto) 0.0 (0.0-0.2) /100WBC Sodium (135-145) mmol/L Potassium (3.3-5.1) mmol/L Chloride (96-108) mmol/L Carbon Dioxide (22-29) mmol/L Anion Gap (12-20) BUN (9-16) mg/dL Creatinine (0.5-1.4) mg/dL Estim Creat Clear Calc Estimated GFR Random Glucose (60-115) mg/dL Calcium (8.4-10.2) mg/dL Magnesium Cancelled Total Bilirubin (0.0-1.0) mg/dL AST (5-31) U/L ALT (0-31) U/L Alkaline Phosphatase (39-117) U/L Troponin I High Sens (<3.5-17.0) ng/L Total Protein (6.5-8.0) g/dL Albumin (3.5-5.0) g/dL Urine Color Urine Appearance Urine pH (5.0-8.0) Ur Specific Dustin (1.005-1.025) Urine Protein (NEG-TRACE) MG/DL Urine Glucose (UA) (NEG) MG/DL Urine Ketones (NEG) MG/DL Urine Blood (NEG) Urine Nitrite (NEG) Ur Leukocyte Esterase (NEG) Urine RBC (0) /HPF Urine WBC (0-4) /HPF Ur Squamous Epith Cells /LPF Urine Bacteria /LPF COVID-19 (DEA) Negative (Negative) COVID-19 Clin Com See Note 04/15/22 04/15/22 04/15/22 Range/Units 11:21 11:32 12:35 WBC (4.8-10.8) X10*3/uL RBC (4.20-5.50) X10*6/uL Hgb (12.0-16.0) g/dl Hct (37.0-47.0) % MCV (80.0-98.0) fL MCH (27.0-33.0) pg MCHC (31.0-35.0) g/dl RDW (11.0-16.0) % Plt Count (160-400) X10*3/uL MPV (9.4-12.3) fL Immature Gran % (Auto) (0.0-0.4) % Neut % (Auto) (45-73) % Lymph % (Auto) (20-40) % [place] % (Auto) (2-11) % Eos % (Auto) (0-4) % Baso % (Auto) (0-2) % Lymph # (Auto) (1.2-4.9) X10*3/uL [place] # (Auto) (0.1-1.2) X10*3/uL Eos # (Auto) (0.0-0.4) X10*3/uL Baso # (Auto) (0.0-0.2) X10*3/uL Abs Immat Gran (auto) (0.00-0.03) X10*3/uL Absolute Neuts (auto) (2.0-8.3) x10*3/uL Absolute Nucleated RBC (0.0-0.012) X10*3/uL Nucleated RBC % (auto) (0.0-0.2) /100WBC Sodium 137 (135-145) mmol/L Potassium 4.2 (3.3-5.1) mmol/L Chloride 104 (96-108) mmol/L Carbon Dioxide 26 (22-29) mmol/L Anion Gap 11 L (12-20) BUN 8 L D (9-16) mg/dL Creatinine 0.72 (0.5-1.4) mg/dL Estim Creat Clear Calc 111.2 Estimated GFR > 60 Random Glucose 225 H (60-115) mg/dL Calcium 8.6 (8.4-10.2) mg/dL Magnesium 1.8 Total Bilirubin 0.6 (0.0-1.0) mg/dL AST 43 H D (5-31) U/L ALT 39 H (0-31) U/L Alkaline Phosphatase 79 (39-117) U/L Troponin I High Sens < 3.5 (<3.5-17.0) ng/L Total Protein 5.6 L (6.5-8.0) g/dL Albumin 3.6 (3.5-5.0) g/dL Urine Color COLORLESS Urine Appearance CLEAR Urine pH 6.0 (5.0-8.0) Ur Specific Dustin <= 1.005 (1.005-1.025) Urine Protein NEG (NEG-TRACE) MG/DL Urine Glucose (UA) NEG (NEG) MG/DL Urine Ketones NEG (NEG) MG/DL Urine Blood TRACE (NEG) Urine Nitrite NEG (NEG) Ur Leukocyte Esterase NEG (NEG) Urine RBC 0 (0) /HPF Urine WBC 1-4 (0-4) /HPF Ur Squamous Epith Cells 1+ /LPF Urine Bacteria 1+ /LPF COVID-19 (DEA) (Negative) COVID-19 Clin Com ECG Data Attestation: I personally reviewed and interpreted this ECG as follows: Prior ECG tracings: available for review Interpretation: Vent. Rate: 069 BPM ? ? Atrial Rate: 075 BPM P-R Int: 136 ms? QRS Dur: 076 ms QT Int: 396 ms ? ? ? P-R-T Axes: 090 003 033 degrees QTc Int: 424 ms ? Sinus rhythm with marked sinus arrhythmia Low voltage QRS Borderline ECG When compared with ECG of 11-MAR-2021 14:47, Nonspecific T wave abnormality now evident in Inferior leads DD/ [id number] Discharge Plan Discharge Clinical Impression: T2DM (type 2 diabetes mellitus) Patient Disposition: Home, Self-Care Instructions: Type 2 Diabetes Management for Adults (ED) Additional Instructions: Follow up with your primary care provider. Return to the emergency department immediately if your symptoms worsen or if you develop any dizziness, shortness of breath, difficulty breathing, chest pain, blurry vision, loss of vision, nausea, vomiting, abdominal pain, fever, chills, back pain, or any other complaints. Prescriptions: No Action insulin aspart U-100 [Novolog Flexpen U-100 Insulin] 100 unit/mL (3 mL) insu rosette pen See Rx Instructions subcut QIDACHS 30 Days Qty: 15 11RF Protocol: Insulin Correction Scale Less than or equal to 110 ---- Give (units): 0 111 to 150 Give (units): 0 151 to 200 Give (units): 2 201 to 250 Give (units): 4 251 to 300 Give (units): 6 301 to 350 Give (units): 8 Greater than 350 Give (units): 10 Call MD if Blood Glucose > : 350 Rx Instructions: Up to a total daily dose of 30 units via sliding scale subcut 4 times a day before meal/bed; furosemide 20 mg tablet 20 mg PO Q8H PRN (Reason: edema) 15 Days Qty: 45 1RF fluoxetine 20 mg capsule 60 mg PO DAILY 30 Days Qty: 90 3RF Lantus Solostar U-100 Insulin 100 unit/mL (3 mL) insulin pen 30 unit subcut QPM 30 Days Qty: 15 6RF (DME) pen needle, diabetic [Unifine Pentips Plus] 32 gauge x 5/32 needle See Rx Instructions .ROUTE .COMPLEX Qty: 400 0RF Dose Instruction: USE 5 TIMES A DAY Rx Instructions: USE 5 TIMES A DAY (DME) FreeStyle Lite Strips Strip See Rx Instructions .ROUTE .MEDSUPPLY Qty: 100 8RF Rx Instructions: 4x daily acetaminophen [Tylenol Extra Strength] 500 mg tablet 500 mg PO Q6H PRN (Reason: pain or fever) Qty: 20 0RF lidocaine [Lidoderm] 5 % adhesive patch,medicated 1 patch topical DAILY MDD remove after 12 hours PRN (Reason: pain) Qty: 30 0RF Rx Instructions: leave on most painful area for up to 12 hrs naproxen 500 mg tablet 500 mg PO BID PRN (Reason: pain) 10 Days Qty: 20 0RF losartan 25 mg tablet 25 mg PO DAILY 30 Days Qty: 30 3RF sumatriptan succinate 100 mg tablet See Rx Instructions PO .COMPLEX 30 Days Qty: 12 3RF Rx Instructions: take 1 tab at onset of headache; if no relief, may repeat 1 tab after at least 2 hrs; max = 2 tabs/24 hrs PO prednisone 10 mg tablet 10 mg PO DAILY 9 Days Qty: 18 0RF acetaminophen-codeine 300-30 mg tablet 1 tab PO Q8H PRN (Reason: pain) 4 Days Qty: 12 0RF atorvastatin 40 mg tablet 40 mg PO DAILY 30 Days Qty: 30 11RF Trulicity 3 mg/0.5 mL pen injector 3 mg subcut QWEEK 30 Days Qty: 2.5 11RF (DME) FreeStyle Lite Strips Strip See Rx Instructions Not Applicable QID Qty: 10 Rx Instructions: As directed metformin 500 mg tablet extended release 24 hr 1,000 mg PO BID 30 Days Qty: 120 11RF (DME) blood-glucose meter [FreeStyle Lite Meter] Kit See Rx Instructions .ROUTE .MEDSUPPLY Qty: 1 0RF Rx Instructions: As directed (DME) lancets [FreeStyle Lancets] 28 gauge misc See Rx Instructions .ROUTE .MEDSUPPLY Qty: 100 11RF Rx Instructions: 4x daily tizanidine 4 mg tablet 4 mg PO Q8H PRN (Reason: muscle spasticity) 30 Days Qty: 90 1RF pregabalin 300 mg capsule 300 mg PO BID 90 Days Qty: 180 1RF Referrals: Collin Arteaga PA-C [Primary Care Provider] - Interventions: ED Discharge Assessment Last Done: 04/15/22 14:25 Print Language: Gabonese
[2022-04-15 10:30] VITALS: BP 118/60; BP 142/84; PULSE 79; PULSE 80; RESP 20; TEMP 36.7; O2SAT 96; O2SAT 99; BMI 49.5
--- NOTE | 2022-04-15 10:43 | ECG_ITS ---
Test Reason : hyperglycemia Blood Pressure : / mmHG Vent. Rate : 069 BPM Atrial Rate : 075 BPM P-R Int : 136 ms QRS Dur : 076 ms QT Int : 396 ms P-R-T Axes : 090 003 033 degrees QTc Int : 424 ms Sinus rhythm with marked sinus arrhythmia Low voltage QRS Borderline ECG When compared with ECG of 11-MAR-2021 14:47, Nonspecific T wave abnormality now evident in Inferior leads Referred By: Ayana Marinelli Electronically Signed By:Dereck Jamil
[2022-04-15 11:28] LABS: MANUAL DIFF FLAG NO
[2022-04-15 11:30] LABS: Basophils Percent Auto 0.3 % (0-2); Eosinophils Absolute Auto 0.1 X10*3/uL (0.0-0.4); Eosinophils Percent Auto 1.4 % (0-4); Hematocrit 38.6 % (37.0-47.0); Hemoglobin 12.7 g/dl (12.0-16.0); Imm Gran Abs Auto 0.04 X10*3/uL (0.00-0.03); Imm Gran Pct Auto 0.4 % (0.0-0.4); Lymphocytes Absolute Auto 1.3 X10*3/uL (1.2-4.9); Lymphocytes Percent Auto 12.5 % (20-40); Mean Corpuscular HGB Conc 32.9 g/dl (31.0-35.0); Mean Corpuscular Hemoglobin 29.7 pg (27.0-33.0); Mean Corpuscular Volume 90.2 fL (80.0-98.0); Mean Platelet Volume 8.8 fL (9.4-12.3); Monocytes Absolute Auto 0.5 X10*3/uL (0.1-1.2); Monocytes Percent Auto 4.8 % (2-11); Neutrophils Absolute Auto 8.1 x10*3/uL (2.0-8.3); Neutrophils Percent Auto 80.6 % (45-73); Platelet Count 243 X10*3/uL (160-400); Red Blood Count 4.28 X10*6/uL (4.20-5.50); Red Cell Distribution Width 13.7 % (11.0-16.0)
[2022-04-15] MEDS: 0.9 % Sodium Chloride 1,000 ML 999 ML IV (11:33)
[2022-04-15 11:39] LABS: Appearance Urine CLEAR; Glucose Urine UA NEG (NEG); Leukocyte Esterase Urine NEG (NEG); Nitrite Urine NEG (NEG); Specific Gravity - Urine <= 1.005 (1.005-1.025); UACC Culture Trigger NO; Urine Blood TRACE (NEG); Urine Ketones NEG (NEG); Urine Protein NEG (NEG-TRACE)
[2022-04-15 11:41] LABS: Color Urine COLORLESS
[2022-04-15 11:46] LABS: COVID-19 Test Negative (Negative)
[2022-04-15 11:49] LABS: Bacteria Urine 1+ /LPF; Squamous Epithelial Cell Urine 1+ /LPF
[2022-04-15 11:50] LABS: RBC Urine 0 /HPF (0)
[2022-04-15 11:55] LABS: Troponin-I High Sensitivity < 3.5 ng/L (<3.5-17.0)
[2022-04-15 13:53] LABS: Alanine Aminotransferase 39 U/L (0-31); Albumin Level 3.6 g/dL (3.5-5.0); Alkaline Phosphatase 79 U/L (39-117); Anion Gap 11 (12-20); Aspartate Amino Transferase 43 U/L (5-31); Bilirubin Total 0.6 mg/dL (0.0-1.0); Blood Urea Nitrogen 8 mg/dL (9-16); Calcium 8.6 mg/dL (8.4-10.2); Carbon Dioxide 26 mmol/L (22-29); Chloride 104 mmol/L (96-108); Creatinine Clr Calc Pharmacy 111.2; Estimated Glomerular Filt Rate > 60; Glucose Random 225 mg/dL (60-115); Magnesium 1.8 mg/dL (1.6-2.6); Potassium 4.2 mmol/L (3.3-5.1); Sodium 137 mmol/L (135-145); Total Protein 5.6 g/dL (6.5-8.0)
== END 2022-04-15 15:04 | disposition home or self-care (01) ==
PROVIDERS: Physician Assistant Medical; Emergency Provider Emergency Medicine; PCP Physician Assistant
DX: E11.9 Type 2 diabetes mellitus without complications (principal); Z20.822 Contact with and (suspected) exposure to COVID-19; I10 Essential (primary) hypertension; E78.5 Hyperlipidemia, unspecified; Z79.02 Long term (current) use of antithrombotics/antiplatelets
CPT/HCPCS: 36415; 80053; 81001; 83735; 84484; 85025; 87635; 93005; 96360; 99283; 99284

== ENCOUNTER 2023-03-23 07:04 | Outpatient (REF) | payer OTHER, SELFPAY ==
[2023-03-23 07:45] LABS: Hematocrit 42.2 % (37.0-47.0); Hemoglobin 14.5 g/dl (12.0-16.0); Mean Corpuscular HGB Conc 34.4 g/dl (31.0-35.0); Mean Corpuscular Volume 90.4 fL (80.0-98.0); Mean Platelet Volume 9.3 fL (9.4-12.3); Platelet Count 244 X10*3/uL (160-400); Red Blood Count 4.67 X10*6/uL (4.20-5.50); Red Cell Distribution Width 13.6 % (11.0-16.0); White Blood Count 8.6 X10*3/uL (4.8-10.8)
[2023-03-23 08:32] LABS: Alanine Aminotransferase 10 U/L (0-31); Alkaline Phosphatase 138 U/L (39-117); Anion Gap 19 (12-20); Aspartate Amino Transferase 12 U/L (5-31); Bilirubin Total 0.4 mg/dL (0.0-1.0); Blood Urea Nitrogen 12 mg/dL (9-16); Calcium 9.4 mg/dL (8.4-10.2); Carbon Dioxide 16 mmol/L (22-29); Chloride 105 mmol/L (96-108); Cholesterol 233 mg/dL; Estimated Glomerular Filt Rate > 60; Glucose Fasting 344 mg/dL (60-99); HDL Cholesterol 27 mg/dL; Potassium 3.6 mmol/L (3.3-5.1); Sodium 136 mmol/L (135-145); Triglycerides 1098 mg/dL
[2023-03-23 08:35] LABS: Creatinine Urine 41.27 mg/dL; Microalbum/Creatinine Ratio Ur 19.3 ug/mg cr
[2023-03-28 22:48] LABS: Glutamic acid decarboxylase Ab <5 IU/mL (<5)
== END 2023-03-23 07:05 | disposition home or self-care (01) ==
LOC: HO.LAB 07:04
PROVIDERS: PCP Physician Assistant; Visit Provider Physician Assistant
DX: E11.9 Type 2 diabetes mellitus without complications (principal); I10 Essential (primary) hypertension; E78.5 Hyperlipidemia, unspecified
CPT/HCPCS: 36415; 80053; 80061; 82043; 85027; 86341

== ENCOUNTER → 2023-03-27 14:30 | Outpatient (BNVA) | payer OTHER, SELFPAY | PROVIDERS: PCP Physician Assistant; Visit Provider Physician Assistant | DX: M54.16 Radiculopathy, lumbar region (principal) | CPT/HCPCS: 99202 ==

== ENCOUNTER 2023-04-05 08:39 | Outpatient (REF) | payer OTHER, SELFPAY ==
[2023-04-05 09:50] LABS: Cholesterol 121 mg/dL; HDL Cholesterol 48 mg/dL; LDL Cholesterol Calculated 61 mg/dl; Triglycerides 60 mg/dL
== END 2023-04-05 08:40 | disposition home or self-care (01) ==
LOC: HO.LAB 08:39
PROVIDERS: PCP Physician Assistant; Visit Provider Physician Assistant
DX: D17.24 Benign lipomatous neoplasm of skin and subcutaneous tissue of left leg (principal); E78.5 Hyperlipidemia, unspecified
CPT/HCPCS: 36415; 80061; 99202

== ENCOUNTER → 2023-04-06 10:01 | Outpatient (BNVA) | payer OTHER, SELFPAY | PROVIDERS: PCP Physician Assistant; Visit Provider Orthopaedic Surgery | DX: M17.11 Unilateral primary osteoarthritis, right knee (principal); E11.9 Type 2 diabetes mellitus without complications | CPT/HCPCS: 99212 ==

== ENCOUNTER 2023-04-25 07:32 | Day surgery (SDC) | payer OTHER, SELFPAY ==
[2023-04-21 12:56] VITALS: BMI 38.4
--- NOTE | 2023-04-24 08:59 | MHC.SHP ---
Pre-Procedural Eval Section A Date of Service: 04/24/23 The patient is an INPATIENT: No Changes since office visit: No Cold of Flu in the past 2 weeks, No New Medical Problems, No Changes in Medication and No Patient answered all questions The History & Physical has been completed within 30 days and I have reviewed it.: Yes Section B Chief Complaint: Benign lipomatous neoplasm of skin and subcutaneou Allergies: Allergies Allergy/AdvReac Type Severity Reaction Status Date / Time baclofen [BACLOFEN] Allergy Intermediate memory Verified 04/21/23 12:50 loss/balance issues lisinopril AdvReac Intermediate ? Verified 04/21/23 12:50 increased creatinine metformin AdvReac Intermediate bad after Verified 04/05/23 09:01 taste Plan I have reviewed the history and physical and performed a pertinent physical examination on my patient. No changes have occurred unless specified. Time Spent With Patient Time: Total time managing care of this patient today ____ minutes.
--- NOTE | 2023-04-24 11:02 | HO.ANESPROP2 ---
Documented by User: Rosita Rodriguez NP 04/24/23 11:03 HPI - Anesthesia Eval Consult details Narrative: 52yo F for Left Wide Local Excision Leg anterior thigh lipoma x2 PMFSH Active Problems Active Problems: All Active Problems (Updated 04/06/23 @ 10:43 by Jose Caldwell) Diabetes mellitus, type 2 (Acute) Left peroneal nerve palsy (Acute) Dysphagia (Acute) Lipoma of left lower extremity (Acute) Neurogenic claudication due to lumbar spinal stenosis (Acute) Central stenosis of spinal canal (Acute) Weakness of left lower extremity (Acute) Back pain with history of spinal surgery (Acute) Muscle spasm of back (Acute) Lumbar spondylosis (Acute) Lumbar back pain with radiculopathy affecting left lower extremity (Acute) Pre-procedural examination (Acute) Left sided sciatica (Acute) MDD (major depressive disorder), recurrent episode, mild (Acute) Obese (Acute) Localized osteoarthritis of right knee (Acute) Fibromyalgia (Acute) Tricompartment osteoarthritis of right knee (Acute) Rib pain on left side (Acute) Breast cancer screening (Acute) Migraines (Acute) Anxiety (Acute) Osteoarthritis of right knee (Acute) Annual physical exam (Acute) Edema (Acute) Asthma (Acute) Failed back syndrome, cervical (Acute) Failed back syndrome, lumbar (Acute) Vitamin D deficiency (Acute) HLD (hyperlipidemia) (Acute) HTN (hypertension) (Acute) T2DM (type 2 diabetes mellitus) (Acute) Conjunctivitis (Acute) Uncontrolled diabetes mellitus (Acute) Hypokalemia (Acute) Diabetic ketoacidosis associated with type 2 diabetes mellitus (Acute) Past Medical History Medical History Arthritis Asthma Back pain with history of spinal surgery Degenerative disorder of bone Diabetes mellitus, type 2 Failed back syndrome, cervical Failed back syndrome, lumbar HLD (hyperlipidemia) HTN (hypertension) Sleep apnea Spinal stenosis T2DM (type 2 diabetes mellitus) Vitamin D deficiency Family History Family History Father Substance use disorder Lung cancer Mother Substance use disorder Maternal Grandmother Colon cancer Sister Diabetes Son Malabsorption Asthma Tracheomalacia Other Mental health disorder Surgical History Surgical History History of arthroscopy of right knee History of cataract surgery History of section History of laminectomy History of microdiscectomy History of nasal surgery History of tonsillectomy History of umbilical hernia repair Hx laparoscopic cholecystectomy Hx of eye surgery Social History Social History Household Members: Children Household Members Other:: lives w/ 2 kids next to sister. Housing: House Housing Other:: duplex Do you presently have visiting nurse or other home services: No Alcohol intake: current Alcohol intake frequency: holidays/special occasions only Patient Tobacco Use Status: Never used Tobacco e-Cigarette/Vaping Use: Never Used Second Hand Smoke Exposure: No Use of substances other than those prescribed or required for medical reasons: No Are you DNR?: No Advance Directives: No Advance Directives Information Provided: Yes Advance Directives on File: No service: No Current occupational status: disabled Cognitive needs: No Hearing needs: No Vision needs: Yes Meds Allergies Allergy/AdvReac Type Severity Reaction Status Date / Time baclofen [BACLOFEN] Allergy Intermediate memory Verified 04/21/23 12:50 loss/balance issues lisinopril AdvReac Intermediate ? Verified 04/21/23 12:50 increased creatinine metformin AdvReac Intermediate bad after Verified 04/05/23 09:01 taste Home Medications Medication Instructions Recorded Confirmed Last Taken Type blood sugar diagnostic #10 ea 11/12/20 03/22/23 Unknown History Exam Exam Date and Time: April 24, 2023 1102 Height,Weight and Vital Signs: Height 5 ft 1 in Weight 92.079 kg Pertinent Lab Results Pertinent Lab Results: Laboratory Tests 03/23/23 03/23/23 07:20 07:20 WBC 8.6 Hgb 14.5 Hct 42.2 Plt Count 244 Sodium 136 Potassium 3.6 Chloride 105 Carbon Dioxide 16 L BUN 12 Creatinine 0.81 Assessment and Plan Assessment Anesthesia Assessment: Chart Reviewed Documented by User: Nori Camarena MD 04/25/23 08:32 PMFSH Active Problems Active Problems: All Active Problems (Updated 04/25/23 @ 08:10 by Nori Camarena MD) Diabetes mellitus, type 2 (Acute) Left peroneal nerve palsy (Acute) with Left foot drop. Has cane but does not use Dysphagia (Acute) Lipoma of left lower extremity (Acute) Neurogenic claudication due to lumbar spinal stenosis (Acute) Central stenosis of spinal canal (Acute) Weakness of left lower extremity (Acute) Back pain with history of spinal surgery (Acute) Muscle spasm of back (Acute) Lumbar spondylosis (Acute) Lumbar back pain with radiculopathy affecting left lower extremity (Acute) Pre-procedural examination (Acute) Left sided sciatica (Acute) MDD (major depressive disorder), recurrent episode, mild (Acute) Obese (Acute) Localized osteoarthritis of right knee (Acute) Fibromyalgia (Acute) Tricompartment osteoarthritis of right knee (Acute) Rib pain on left side (Acute) Breast cancer screening (Acute) Migraines (Acute) Anxiety (Acute) Osteoarthritis of right knee (Acute) Annual physical exam (Acute) Edema (Acute) Asthma (Acute) Failed back syndrome, cervical (Acute) Failed back syndrome, lumbar (Acute) Vitamin D deficiency (Acute) HLD (hyperlipidemia) (Acute) HTN (hypertension) (Acute) T2DM (type 2 diabetes mellitus) (Acute) Conjunctivitis (Acute) Uncontrolled diabetes mellitus (Acute) Hypokalemia (Acute) Diabetic ketoacidosis associated with type 2 diabetes mellitus (Acute) S/p Cervical surgery x2 -Numbness Right hand, weakness both upper extremities RU-Not using CPAP machine Increased BMI 38.4 Past Medical History Medical History Arthritis Asthma Back pain with history of spinal surgery Degenerative disorder of bone Diabetes mellitus, type 2 Failed back syndrome, cervical Failed back syndrome, lumbar HLD (hyperlipidemia) HTN (hypertension) Sleep apnea Spinal stenosis T2DM (type 2 diabetes mellitus) Vitamin D deficiency Family History Family History Father Substance use disorder Lung cancer Mother Substance use disorder Maternal Grandmother Colon cancer Sister Diabetes Son Malabsorption Asthma Tracheomalacia Other Mental health disorder Family history of problems with anesthesia: Yes (Father-'they could not wake him up'-unsure of details) Surgical History Surgical History History of arthroscopy of right knee History of cataract surgery History of section History of laminectomy History of microdiscectomy History of nasal surgery History of tonsillectomy History of umbilical hernia repair Hx laparoscopic cholecystectomy Hx of eye surgery History of Problems with Anesthesia: No Social History Social History Household Members: Children Household Members Other:: lives w/ 2 kids next to sister. Housing: House Housing Other:: duplex Do you presently have visiting nurse or other home services: No Alcohol intake: current Alcohol intake frequency: holidays/special occasions only Patient Tobacco Use Status: Never used Tobacco e-Cigarette/Vaping Use: Never Used Second Hand Smoke Exposure: No Use of substances other than those prescribed or required for medical reasons: No Are you DNR?: No Advance Directives: No Advance Directives Information Provided: Yes Advance Directives on File: No service: No Current occupational status: disabled Cognitive needs: No Hearing needs: No Vision needs: Yes Meds Allergies Allergy/AdvReac Type Severity Reaction Status Date / Time baclofen [BACLOFEN] Allergy Intermediate memory Verified 04/21/23 12:50 loss/balance issues lisinopril AdvReac Intermediate ? Verified 04/21/23 12:50 increased creatinine metformin AdvReac Intermediate bad after Verified 04/05/23 09:01 taste Home Medications Medication Instructions Recorded Confirmed Last Taken Type blood sugar diagnostic #10 ea 11/12/20 03/22/23 Unknown History Exam Pertinent Lab Results Pertinent Lab Results: Laboratory Tests 03/23/23 03/23/23 07:20 07:20 WBC 8.6 Hgb 14.5 Hct 42.2 Plt Count 244 Sodium 136 Potassium 3.6 Chloride 105 Carbon Dioxide 16 L BUN 12 Creatinine 0.81 Lab Results 04/25/23 Range/Units 08:23 POC Glucose 126 H (60-115) mg/dL Airway Mallampati Class: III (Small mouth) TM Dist: >3cm Neck ROM: Limited (Pain with extension) Loose/Missing/Broken Teeth: Yes (Molars extracted) Heart: RRR Lungs: CTAB Assessment and Plan Assessment Anesthesia Assessment: Anesthesia Plan Discussed Final Anesthetic Review Family History of Problems with Anesthesia: Yes (Father-'they could not wake him up'-unsure of details) History of Problems with Anesthesia: No NPO: Yes ASA Class: III Final Preanesthetic Review: No Changes in Pt Med Stat, Meds/Allgs Chart Reviewed, Consent Obtained/Reviewed and Anes Risks/Benef Reviewed Patient Risk: Intermediate Procedure Risk: Low Assessment/Block/Sedation in SS: Assess/Block/Sedation-SS Anesthetic Plan Anesthetic Plan: GA and MAC: Disposition: Standard PACU
[2023-04-25] MEDS: Lactated Ringers 1,000 ML 100 ML IVCONT (08:24)
[2023-04-25 08:29] LABS: Glucose, Whole Blood 126 mg/dL (60-115)
[2023-04-25 09:30] VITALS: BP 124/65; PULSE 67; RESP 16; TEMP 37; O2SAT 97
--- NOTE | 2023-04-25 11:12 | P.OP_ITS ---
Operative Note Operative Note Date of Service: 04/25/23 Narrative: Preoperative diagnosis: [] Left proximal thigh lipoma x2 Postop diagnosis: [] Same Procedure [] proximal deep/intramuscular and distal subcutaneous lipomas left thigh Surgeon: [] Juan Epic Ambulatory Analysts: [] joni Law Type of Anesthesia: [] MAC Indication for surgery: [] Proximal intramuscular lipoma measured 10 x 7 cm was within the quadriceps muscle compartment of the anterior proximal thigh. More distal thigh lipoma was in the subcutaneous tissue measuring 8 x 5 cm. Findings: [] Patient brought to the operating room, placed on operative table in a supine position, after an adequate level of MAC anesthesia was induced, the left proximal thigh area was prepped and draped in usual sterile fashion. Each incision area was infiltrated with 1% lidocaine/0.5% Marcaine. Commencing with the more distal lesion, a transverse incision was made over the mass in question and carried down through skin, subcutaneous tissue, where a large lipoma with dimensions as described above was uneventfully enucleated. Specimen sent to pathology. Wound was irrigated, secured hemostasis, and closed using interrupted inverted dermal 3-0 Vicryl sutures followed by Steri-Strips and sterile dressings. The more proximal lesion was similarly approached with a transverse incision which was carried down through skin, subcutaneous tissue, Roma's fascia, where a longitudinal incision was made over the quadriceps fascia and dissection in this muscle compartment demonstrated a large lipoma which was uneventfully dissected off the underlying quadriceps muscle and specimen sent pathology. Dimensions were as described above. Wound was irrigated, secured hemostasis. It was closed in the following manner; muscle fascia was closed using running 0 Vicryl suture. Roma's fascia was reapproximated using interrupted 3-0 Vicryl sutures. Interrupted inverted dermal 3-0 Vicryl sutures followed by Steri-Strips and sterile dressings were applied. Sponge, needle, and instrument counts were reported to be correct. Patient tolerated the procedure well and emerged from anesthesia stable condition. EBL minimal
[2023-04-25 11:18] VITALS: BP 140/67; PULSE 70; RESP 16; TEMP 36.1; O2SAT 99
[2023-04-25] MEDS: Acetaminophen 325 MG TABLET 650 MG PO (11:24)
[2023-04-25] MEDS: oxyCODONE HCl Immed Release 5 MG TABLET PO (11:25)
[2023-04-25] MEDS: fentaNYL citrate/PF 100 MCG/2 ML VIAL 25 MCG IVPUSH (11:27)
[2023-04-25 11:32] VITALS: BP 140/49; PULSE 63; RESP 16; O2SAT 98
[2023-04-25 11:48] VITALS: BP 138/68; PULSE 64; RESP 18; TEMP 36.1; O2SAT 99
== END 2023-04-25 13:30 | disposition home or self-care (01) ==
PROVIDERS: PCP Physician Assistant; Visit Provider Surgery
PROC: (CPT 27339; principal; 2023-04-25 09:30)
DX: D17.24 Benign lipomatous neoplasm of skin and subcutaneous tissue of left leg (principal); E11.9 Type 2 diabetes mellitus without complications; I10 Essential (primary) hypertension; E78.5 Hyperlipidemia, unspecified; Z79.4 Long term (current) use of insulin; Z79.899 Other long term (current) drug therapy
CPT/HCPCS: 27339; 11406; 12031; 82947; 88304; J0690; J2250; J2795; J3010

== ENCOUNTER → 2023-04-25 07:32 | Outpatient (BNV) | payer OTHER, SELFPAY | PROVIDERS: PCP Physician Assistant; Visit Provider Surgery | DX: D17.24 Benign lipomatous neoplasm of skin and subcutaneous tissue of left leg (principal) | CPT/HCPCS: 27339 ==

== ENCOUNTER 2023-05-05 09:36 | Outpatient (AMB) | payer OTHER, SELFPAY ==
--- NOTE | 2023-05-05 09:42 | MHC.OFFVIS ---
Intake Vital Signs 05/05/23 09:43 Weight 205 lb BP 132/76 Blood Pressure Location Lt brachial Position Sitting Pulse 76 Intake Visit Reasons: S/P lg. Lt. anterior thigh lipoma x2 Intake Note: Patient here s/p exc Lt ant upper thigh. Thinks site might be infected. C/o redness, oozing yellowish discharge. Finished pain meds. 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 increased creatinine metformin Adverse Reaction (Intermediate, Verified 05/05/23 09:44) bad after taste Medication List - Last Reconciled 05/05/23 by Contreras Martinez MD acetaminophen (Tylenol Extra Strength) 500 mg PO Q6H PRN atorvastatin 40 mg PO DAILY 90 days blood sugar diagnostic (FreeStyle Lite Strips) 4x daily blood sugar diagnostic As directed blood-glucose meter (FreeStyle Lite Meter kit) As directed fluoxetine 60 mg (3 x 20 mg) PO DAILY 30 days insulin aspart U-100 (Novolog FlexPen U-100 Insulin aspart) See Protocol Up to a total daily dose of 30 units via sliding scale subcut 4 times a day before meal/bed; 30 days insulin glargine (Lantus Solostar U-100 Insulin) 30 units (0.3 mL) subcut QPM 30 days lancets (FreeStyle Lancets) 4x daily metformin ER 1,000 mg (2 x 500 mg) PO DAILY 90 days pen needle, diabetic (Unifine Pentips Plus) USE 5 TIMES A DAY pregabalin 300 mg PO BID 90 days semaglutide (Ozempic) 0.5 mg (0.8 mL) subcut QWEEK 4 weeks sumatriptan succinate take 1 tab at onset of headache; if no relief, may repeat 1 tab after at least 2 hrs; max = 2 tabs/24 hrs PO 30 days HPI HPI Comments History of Present Illness Details Patient presents with her son for follow-up. She has no wound pain or discomfort but is concerned about the appearance of the more proximal wound. Pathology is benign [facility] Medical History Arthritis Asthma Back pain with history of spinal surgery Degenerative disorder of bone Diabetes mellitus, type 2 Failed back syndrome, cervical Failed back syndrome, lumbar HLD (hyperlipidemia) HTN (hypertension) Sleep apnea Spinal stenosis T2DM (type 2 diabetes mellitus) Vitamin D deficiency Surgical History History of arthroscopy of right knee History of cataract surgery History of section History of laminectomy History of microdiscectomy History of nasal surgery History of tonsillectomy History of umbilical hernia repair Hx laparoscopic cholecystectomy Hx of eye surgery Family History Father Substance use disorder Lung cancer Mother Substance use disorder Maternal Grandmother Colon cancer Sister Diabetes Son Malabsorption Asthma Tracheomalacia Other Mental health disorder Social History Household Members: Children Household Members Other:: lives w/ 2 kids next to sister. Housing: House Housing Other:: duplex Do you presently have visiting nurse or other home services: No Alcohol intake: current Alcohol intake frequency: holidays/special occasions only Patient Tobacco Use Status: Never used Tobacco e-Cigarette/Vaping Use: Never Used Second Hand Smoke Exposure: No service: No Current occupational status: disabled Cognitive needs: No Hearing needs: No Vision needs: Yes Physical Exam Vital Signs: Last Vital Signs Pulse 76 05/05/23 09:43 BP 132/76 05/05/23 09:43 Extrem Other: Patient's more proximal wound is unfortunately covered by her abdominal wall pannus and demonstrates some superficial maceration but no gross infection. Distal thigh wound is well healed with good 1st unchanged Assessment & Plan Assessment & Plan (1) Lipoma of left lower extremity: Code(s): D17.24 - Benign lipomatous neoplasm of skin and subcutaneous tissue of left leg Plan Patient has been given local instructions including keeping a dressing be over the proximal wound to allow this area to breathe. As precaution, antibiotics will be given should this progress to cellulitis. Patient will see me as directed or p.r.n.. Medications: New cephalexin 500 mg PO TID 30 caps 0RF Coding Level of Care Code Global (91701) Diagnoses Lipoma of left lower extremity D17.24
[2023-05-05 09:43] VITALS: BP 132/76; PULSE 76
== END 2023-05-05 10:30 | disposition home or self-care (01) ==
PROVIDERS: PCP Physician Assistant; Visit Provider Surgery
DX: D17.24 Benign lipomatous neoplasm of skin and subcutaneous tissue of left leg (principal)
CPT/HCPCS: 99024

== ENCOUNTER → 2023-05-05 09:36 | Outpatient (BNVA) | payer OTHER, SELFPAY | PROVIDERS: PCP Physician Assistant; Visit Provider Surgery ==

== ENCOUNTER 2023-05-10 10:42 | Outpatient (AMB) | payer OTHER, SELFPAY ==
[2023-05-10 10:46] VITALS: BP 134/75; PULSE 70
--- NOTE | 2023-05-10 10:46 | A.OFFVIS_ITS ---
Intake Vital Signs 05/10/23 10:46 Weight 201 lb BP 134/75 Blood Pressure Location Rt brachial Position Sitting Pulse 70 Intake Visit Reasons: S/P lg. Lt. anterior thigh lipoma x2 Intake Note: Patient here s/p exc on Lt ant thigh X2. Proximal incision still red and yellowish discharge along scar. Distal lesion healed completely. Patient still taking Cephalexin. 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 increased creatinine metformin Adverse Reaction (Intermediate, Verified 05/10/23 10:48) bad after taste HPI HPI Comments History of Present Illness Details Patient presents with her son for follow-up. No new wound issues or complaints. [facility] Medical History Arthritis Asthma Back pain with history of spinal surgery Degenerative disorder of bone Diabetes mellitus, type 2 Failed back syndrome, cervical Failed back syndrome, lumbar HLD (hyperlipidemia) HTN (hypertension) Sleep apnea Spinal stenosis T2DM (type 2 diabetes mellitus) Vitamin D deficiency Surgical History History of arthroscopy of right knee History of cataract surgery History of section History of laminectomy History of microdiscectomy History of nasal surgery History of tonsillectomy History of umbilical hernia repair Hx laparoscopic cholecystectomy Hx of eye surgery S/P excision of lipoma Family History Father Substance use disorder Lung cancer Mother Substance use disorder Maternal Grandmother Colon cancer Sister Diabetes Son Malabsorption Asthma Tracheomalacia Other Mental health disorder Social History Household Members: Children Household Members Other:: lives w/ 2 kids next to sister. Housing: House Housing Other:: duplex Do you presently have visiting nurse or other home services: No Alcohol intake: current Alcohol intake frequency: holidays/special occasions only Patient Tobacco Use Status: Never used Tobacco e-Cigarette/Vaping Use: Never Used Second Hand Smoke Exposure: No service: No Current occupational status: disabled Cognitive needs: No Hearing needs: No Vision needs: Yes Physical Exam Vital Signs: Last Vital Signs Pulse 70 05/10/23 10:46 BP 134/75 05/10/23 10:46 Extrem Other: More proximal wound which is covered with the pannus is now healing uneventfully. No erythema. No evidence of infection. Distal wound is clean dry and intact and healing uneventfully. Assessment & Plan Assessment & Plan (1) Lipoma of left lower extremity: Code(s): D17.24 - Benign lipomatous neoplasm of skin and subcutaneous tissue of left leg Plan Patient Charlie to be given local instructions, she will follow-up p.r.n. Coding Level of Care Code Global (68733) Diagnoses Lipoma of left lower extremity D17.24
== END 2023-05-10 10:55 | disposition home or self-care (01) ==
PROVIDERS: PCP Physician Assistant; Visit Provider Surgery
DX: D17.24 Benign lipomatous neoplasm of skin and subcutaneous tissue of left leg (principal)
CPT/HCPCS: 99024

== ENCOUNTER → 2023-05-10 10:42 | Outpatient (BNVA) | payer OTHER, SELFPAY | PROVIDERS: PCP Physician Assistant; Visit Provider Surgery ==

== ENCOUNTER 2023-05-11 09:56 | Outpatient (AMB) | payer OTHER, SELFPAY ==
--- NOTE | 2023-05-11 10:00 | MHC.OFFVIS ---
Intake Intake Visit Reasons: OV - Right Knee Durolane Intake Note: Itz 52 year old female who presnets today for a right knee Durolane injection. Allergies baclofen [BACLOFEN] Allergy (Intermediate, Verified 05/10/23 10:48) memory loss/balance issues lisinopril Adverse Reaction (Intermediate, Verified 05/10/23 10:48) ? increased creatinine metformin Adverse Reaction (Intermediate, Verified 05/10/23 10:48) bad after taste PFSH Medical History Arthritis Asthma Back pain with history of spinal surgery Degenerative disorder of bone Diabetes mellitus, type 2 Failed back syndrome, cervical Failed back syndrome, lumbar HLD (hyperlipidemia) HTN (hypertension) Sleep apnea Spinal stenosis T2DM (type 2 diabetes mellitus) Vitamin D deficiency Surgical History History of arthroscopy of right knee History of cataract surgery History of section History of laminectomy History of microdiscectomy History of nasal surgery History of tonsillectomy History of umbilical hernia repair Hx laparoscopic cholecystectomy Hx of eye surgery S/P excision of lipoma Family History Father Substance use disorder Lung cancer Mother Substance use disorder Maternal Grandmother Colon cancer Sister Diabetes Son Malabsorption Asthma Tracheomalacia Other Mental health disorder Social History Household Members: Children Household Members Other:: lives w/ 2 kids next to sister. Housing: House Housing Other:: duplex Do you presently have visiting nurse or other home services: No Alcohol intake: current Alcohol intake frequency: holidays/special occasions only Patient Tobacco Use Status: Never used Tobacco e-Cigarette/Vaping Use: Never Used Second Hand Smoke Exposure: No service: No Current occupational status: disabled Cognitive needs: No Hearing needs: No Vision needs: Yes Office Procedures Joint Injection/Drain Joint Injection/Drain Details: Injected Durolane. Site was prepped using aseptic technique. Patient tolerated the procedure well. Primary Site: right knee Approach Used: anterolateral Coding 98441 - Large joint Procedure code (CPT) selection complete Results Reviewed Results Reviewed: 05/11/23 10:00 Hyaluronate Sodium, Stabilized [Durolane] 60 mg INTRAARTIC .STK-MED ONE Assessment & Plan Assessment & Plan (1) Localized osteoarthritis of right knee: Code(s): M17.11 - Unilateral primary osteoarthritis, right knee Plan: Durolane x 1. Toleratesd injection and can follow up in 3 months. Coding Level of Care Code Est Pt Level 3 (49247) Diagnoses Localized osteoarthritis of right knee M17.11 CPT Codes Coding - 09821 Large joint: 90267 - Large joint ([id number])
== END 2023-05-11 11:10 | disposition home or self-care (01) ==
PROVIDERS: PCP Physician Assistant; Visit Provider Orthopaedic Surgery
DX: M17.11 Unilateral primary osteoarthritis, right knee (principal)
CPT/HCPCS: 20610; 99213

== ENCOUNTER → 2023-05-11 09:56 | Outpatient (BNVA) | payer OTHER, SELFPAY | PROVIDERS: PCP Physician Assistant; Visit Provider Orthopaedic Surgery | DX: M17.11 Unilateral primary osteoarthritis, right knee (principal) | CPT/HCPCS: 20610; 99212; J7318 ==

== ENCOUNTER 2023-05-24 13:31 | Outpatient (REF) | payer OTHER, SELFPAY ==
--- NOTE | ~2023-05-24 | MR_ITS ---
EXAMINATION: MR LUMBAR SPINE WITHOUT AND WITH CONTRAST CLINICAL INFORMATION: Lumbar stenosis, neurogenic claudication COMPARISON: MRI lumbar spine 01/14/2022 TECHNIQUE: MRI of the lumbar spine was obtained using routine sequences before and after intravenous administration of 8.5 mL Gadavist. FINDINGS: Changing of the lumbar lordosis. Stable grade 1 retrolisthesis at L3-L4 greater than L2-L3 and a slight anterolisthesis at L5-S1. Vertebral body heights are maintained. There is no suspicious enhancing osseous lesion. Diffuse disc desiccation with redemonstrated moderate to severe L2-L3 and L3-L4 and otherwise milder disc height loss. Increased type I Modic endplate change at L3-L4 and new shallow L2 inferior endplate Schmorl's node with associated marginal edema. Multilevel type II Modic endplate change, most pronounced at L3-L4. Redemonstrated T11 upper endplate Schmorl's node. Focal fat deposition within the T11 vertebral body. Multilevel anterior osteophytic spurring is seen.There are multilevel degenerative changes with level by level detail as follows: T12-L1: Broad-based posterior disc protrusion and mild bilateral facet arthrosis. Stable mild spinal canal narrowing without neural foraminal stenosis. L1-L2: Redemonstrated small annular disc bulge with mild bilateral facet arthrosis. No spinal canal or neural foraminal stenosis. L2-L3: Annular disc bulge with left greater than right facet arthrosis. Stable mild spinal canal narrowing and left greater than right reticular zone stenosis with impression upon the bilateral traversing L3 nerve roots. Unchanged mild right greater than left neural foraminal narrowing with contact along the extraforaminal right L2 nerve root. L3-L4: Retrolisthesis with annular disc bulge and moderate bilateral facet arthrosis with ligamentum flavum thickening. Stable moderate spinal canal and subarticular zone stenosis with mass effect upon the traversing bilateral L4 nerve roots. Unchanged mild to moderate bilateral neural foraminal stenosis with disc osteophyte causing mass effect upon the extraforaminal greater than right L3 nerve roots. L4-L5: Annular disc bulge with superimposed left foraminal disc protrusion/superiorly migrated extrusion and moderate bilateral facet arthrosis with ligamentum flavum thickening. Resolution of previously seen inferiorly migrated left subarticular disc extrusion with decreased mass effect along the traversing left L5 nerve root, however with persistent bilateral subarticular zone stenosis and impression upon the traversing bilateral L5 nerve roots. Stable moderate left and mild right neural foraminal stenosis L5-S1: Suspected prior right L5 hemilaminectomy. Annular disc bulge with redemonstrated broad-based paracentral disc protrusion and advanced right greater than left facet arthrosis with associated enhancing synovitis on the right. Unchanged mild spinal canal narrowing with subarticular zone stenosis and impression upon the traversing right S1 nerve root. Stable mild to moderate bilateral neural foraminal stenosis. Partially imaged thoracic facet arthrosis with ligamentum flavum thickening, for example on the right at T11-T12 encroachment upon the dorsal surface of the cord. The conus medullaris terminates at the level of L1. Questionable enhancement versus artifact of a cauda equina nerve roots in the right aspect of the thecal sac at L5, seen only on a single slice (image 27, series 9).No epidural fluid collection, hematoma, or mass. Increased moderate fatty atrophy of the lower paraspinal musculature. Hepatomegaly measuring up to 21 cm in craniocaudal extent.. The abdominal aorta is of normal contour and caliber. The abdominal aorta is normal in caliber. MR/MR lumbar spine wo/w con IMPRESSION: 1. Increased type I Modic endplate change at L3-L4 and new shallow L2 inferior endplate Schmorl's node with associated marginal edema. 2. At L4-L5, resolution of previously seen inferiorly migrated left subarticular disc extrusion with decreased mass effect along the traversing left L5 nerve root. However, osteophytic ridging and facet arthropathy contributes to persistent bilateral subarticular zone stenosis and mass effect along the traversing bilateral L5 nerve roots. 3. Suspected prior right L5 hemilaminectomy with adjacent advanced right L5-S1 facet arthropathy and associated synovitis. Osseous spurring off the right facet joint in conjunction with paracentral disc protrusion contributes to stable right subarticular zone stenosis and compression of the traversing right S1 nerve root. 4. Otherwise stable multilevel lumbar spondylosis with varying degrees of spinal canal, subarticular zone, and neural foraminal stenosis with level by level detail is described above. 5. Hepatomegaly measuring up to 21 cm in craniocaudal extent.
[2023-05-24] MEDS: gadobutroL 10 ML VIAL IVPUSH (14:51)
== END 2023-05-24 13:32 | disposition home or self-care (01) ==
LOC: HO.MRI 13:31
PROVIDERS: PCP Physician Assistant; Visit Provider Physician Assistant
DX: M48.062 Spinal stenosis, lumbar region with neurogenic claudication (principal); G57.32 Lesion of lateral popliteal nerve, left lower limb
CPT/HCPCS: 72158; A9585

== ENCOUNTER 2023-06-08 10:13 | Outpatient (REF) | payer OTHER, SELFPAY ==
--- NOTE | 2023-06-08 10:16 | EMG_ITS ---
Left tibial and peroneal motor studies were performed. Left superficial peroneal, sural and medial lateral plantar sensory studies were performed and bilateral tibial H-reflexes were obtained and needle examination was performed. IMPRESSION: 1. Moderately severe axonal sensory motor peripheral neuropathy. 2. Left lower lumbar radiculopathy. MD MATTHEW Gray/MALLORY / [id number]
== END 2023-06-08 10:14 | disposition home or self-care (01) ==
LOC: HO.NEURO 10:13
PROVIDERS: PCP Physician Assistant; Visit Provider Physician Assistant
DX: G57.32 Lesion of lateral popliteal nerve, left lower limb (principal)
CPT/HCPCS: 95886; 95910

== ENCOUNTER 2023-06-22 08:56 | Outpatient (AMB) | payer OTHER, SELFPAY ==
--- NOTE | 2023-06-22 08:51 | MHC.PC.OV ---
Intake Visit Reasons: f/u [id number] Intake Note: Patient is here to follow up on DMII. Campus Coordinator Required: No Manager Auto: Not Required per policy Accompanied by: Self / Same As Patient Allergies baclofen [BACLOFEN] Allergy (Intermediate, Verified 06/22/23 09:05) memory loss/balance issues lisinopril Adverse Reaction (Intermediate, Verified 06/22/23 09:05) ? increased creatinine metformin Adverse Reaction (Intermediate, Verified 06/22/23 09:05) bad after taste Medication List - Last Reconciled 06/26/23 by Collin Arteaga PA-C acetaminophen (Tylenol Extra Strength) 500 mg PO Q6H PRN atorvastatin 40 mg PO DAILY 90 days blood sugar diagnostic (FreeStyle Lite Strips) 4x daily blood sugar diagnostic As directed blood-glucose meter (FreeStyle Lite Meter kit) As directed fluoxetine 60 mg (3 x 20 mg) PO DAILY 30 days insulin aspart U-100 (Novolog FlexPen U-100 Insulin aspart) See Protocol Up to a total daily dose of 30 units via sliding scale subcut 4 times a day before meal/bed; 30 days insulin glargine (Lantus Solostar U-100 Insulin) 30 units (0.3 mL) subcut QPM 30 days lancets (FreeStyle Lancets) 4x daily pen needle, diabetic (Unifine Pentips Plus) USE 5 TIMES A DAY pregabalin 300 mg PO BID 90 days semaglutide (Ozempic) 0.5 mg (0.736 mL) subcut QWEEK 4 weeks sumatriptan succinate take 1 tab at onset of headache; if no relief, may repeat 1 tab after at least 2 hrs; max = 2 tabs/24 hrs PO 30 days Tobacco use date assessed: 06/22/23 Dental Screening Dental Screen Date: 06/22/23 Did you have a dental visit in the last 12 months?: Yes Did you have a dental problem in the last 6 months where you did not have access to dental care?: No Was dental information given to patient?: Patient has dentist HPI f/u [phone] HPI Details Patient is a 52-year-old female being evaluated today via telephone. Patient currently has COVID. Has a past medical history significant for type 2 diabetes, lumbar disc disease with failed back syndrome, hypertension, asthma and obesity. Concerns--> reports she is seeing a neurosurgeon for lower back, unfortunately now having increased worsening cervical spine pain with radiculopathy down upper extremities. .. Type 2 diabetes: Last visit we started Ozempic and blood sugars have been much improved, Patient continues on insulin therapy. Reports sugars have been much improved. Has stopped using metformin due to a bad taste . .. Lumbar disc disease: Was seeing pain management in the past and was on her cardiac pain medication though has been discharged from practice. Continues to manage her pain with Lyrica and NSAIDs. Unfortunately over last several months has been progressively losing her strength in the left ankle and foot, believe she has drop foot related to her lumbar disc disease. She has seen an her surgeon whom recommends repeat MRI lumbar spine. [facility] Medical History Arthritis Asthma Back pain with history of spinal surgery Degenerative disorder of bone Diabetes mellitus, type 2 Failed back syndrome, cervical Failed back syndrome, lumbar HLD (hyperlipidemia) HTN (hypertension) Sleep apnea Spinal stenosis T2DM (type 2 diabetes mellitus) Vitamin D deficiency Surgical History S/P excision of lipoma Hx of eye surgery History of microdiscectomy History of umbilical hernia repair History of arthroscopy of right knee History of nasal surgery History of tonsillectomy History of section History of cataract surgery History of laminectomy Hx laparoscopic cholecystectomy Family History Father Substance use disorder Lung cancer Mother Substance use disorder Maternal Grandmother Colon cancer Sister Diabetes Son Malabsorption Asthma Tracheomalacia Other Mental health disorder Social History Household Members: Children Household Members Other:: lives w/ 2 kids next to sister. Housing: House Housing Other:: duplex Do you presently have visiting nurse or other home services: No Alcohol intake: current Alcohol intake frequency: holidays/special occasions only Patient Tobacco Use Status: Never used Tobacco e-Cigarette/Vaping Use: Never Used Second Hand Smoke Exposure: No service: No Current occupational status: disabled Cognitive needs: No Hearing needs: No Vision needs: Yes Questionnaire Thrive Questionnaire Date Thrive assessed: 03/22/23 SANJUANA-7 AMB Questionnaire SANJUANA-7 Date SANJUANA - 7 assessed: 03/22/23 Source: Developed by Drs. Steven Cuevas, Cheri Wood, Ferdinand Villasenor and colleagues, with an educational rios from [employer]. Physical exam (Primary Care) Tobacco/Smoking Status: Tobacco use Status Tobacco use date assessed 06/22/23 06/22/23 08:55 Patient Tobacco Use Status Never used Tobacco 06/22/23 08:55 e-Cigarette/Vaping Use Never Used 06/22/23 08:55 Thrive Assessment: Date of Thrive Assessment Date Thrive assessed 03/22/23 06/22/23 08:55 Telehealth Telehealth Location of provider rendering services: practice address Location of patient: address on file Patient Identification confirmed using: Name, : Yes Telehealth method: voice only Patient verbally consented to treatment: Yes Patient verbally consented to billing insurance company: Yes Patient informed of any privacy concerns related to visit: Yes Assessment and Plan Assessment & Plan (1) Diabetes mellitus, type 2: Code(s): E11.9 - Type 2 diabetes mellitus without complications Qualifiers: Diabetes mellitus complication status: with hyperglycemia 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 Has not gotten repeat A1c and advised to do so in near future.. Again goal A1c is to be below 7.0 (2) Cervical radiculopathy: Code(s): M54.12 - Radiculopathy, cervical region Plan: Reports she has been having neck pain with left upper extremity radiculopathy, numbness in her hands. She has had surgical procedures done in her neck in the past by Dr. Guerra. Will send for x-ray of cervical spine. Will likely need MRI for new radiculopathy symptoms coming from her neck. (3) Neurogenic claudication due to lumbar spinal stenosis: Code(s): M48.062 - Spinal stenosis, lumbar region with neurogenic claudication Plan: Has followed up with neurosurgeon for her back. A1c much too high to be surgical candidate. Has gotten EMG that did show neuropathy in lower extremity. Mentions having made to get new MRI of lumbar spine though has not been done at this date. Orders: Orders Hemoglobin A1c 06/22/23 E11.42 - Type 2 diabetes mellitus with diabetic polyneuropathy, Z79.4 - skilled nursing (current) use of insulin Complete Blood Count no Diff 06/22/23 E11.42 - Type 2 diabetes mellitus with diabetic polyneuropathy, Z79.4 - solderer assembly repair (current) use of insulin Comprehensive [place]. Panel Fast 06/22/23 E11.42 - Type 2 diabetes mellitus with diabetic polyneuropathy, Z79.4 - skilled nursing (current) use of insulin XR cervical spine 3V 06/22/23 M54.12 - Radiculopathy, cervical region Medications: Refilled insulin aspart U-100 (Novolog FlexPen U-100 Insulin aspart) See Protocol Up to a total daily dose of 30 units via sliding scale subcut 4 times a day before meal/bed; 15 mL 6RF 30 days E11.9 - Type 2 diabetes mellitus without complications pregabalin 300 mg PO BID 180 caps 1RF 90 days M96.1 - Postlaminectomy syndrome, not elsewhere classified sumatriptan succinate take 1 tab at onset of headache; if no relief, may repeat 1 tab after at least 2 hrs; max = 2 tabs/24 hrs PO 12 tabs 3RF 30 days G43.009 - Migraine without aura, not intractable, without status migrainosus pen needle, diabetic (Unifine Pentips Plus) USE 5 TIMES A DAY 400 ea 0RF E11.65 - Type 2 diabetes mellitus with hyperglycemia Coding Level of Care Code Tele Est Pt Level 4 (96187) Diagnoses Type 2 diabetes mellitus with hyperglycemia, with long-term current use of insulin E11.65; Z79.4 Diabetes mellitus complication status: with hyperglycemia 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
== END 2023-06-22 10:01 | disposition home or self-care (01) ==
LOC: HO.HMGH 08:56
PROVIDERS: PCP Physician Assistant; Visit Provider Physician Assistant
DX: E11.65 Type 2 diabetes mellitus with hyperglycemia (principal); Z79.4 Long term (current) use of insulin; M54.12 Radiculopathy, cervical region; M48.062 Spinal stenosis, lumbar region with neurogenic claudication
CPT/HCPCS: 99442

== ENCOUNTER 2023-07-25 10:32 | Outpatient (REF) | payer OTHER, SELFPAY ==
--- NOTE | ~2023-07-25 | FL_ITS ---
EXAMINATION: Fluoroscopic esophagram CLINICAL INFORMATION: Neck pain, dysphagia. History of cervical fusion COMPARISON: None TECHNIQUE: Fluoroscopic air contrast upper GI examination was performed utilizing standard techniques with thin and thick barium and effervescent granules. Numerous spot images and fluoroscopic spot hold cine loops were obtained. FINDINGS: Patient is status post anterior cervical fusion C4-C5 with anterior plate, interbody screws, and interbody cortical disc graft. There is no evidence of complication, hardware failure, or screw loosening. There is complete bony fusion through the disc space at C4-C5. There is narrowing of the disc space at C3-C4, with a 3 mm retrolisthesis which appears degenerative. No indentation upon the hypopharynx or prevertebral structures at this region. Lateral cine images of the oropharynx and hypopharynx demonstrate normal swallow mechanism with normal epiglottic inversion and soft palate elevation. There is mild pooling of contrast in the vallecula and the pyriform sinuses that clears with subsequent swallowing. No tracheal penetration, glottic or subglottic aspiration identified. No nasopharyngeal reflux present. Hypopharyngeal structures appear normal without evidence of mass or diverticulum. There was no significant cricopharyngeal achalasia. Dual and single contrast images of the esophagus demonstrate normal caliber, contour, and mucosal pattern. No evidence of stricture, mass, or ulcerations identified. Esophageal peristalsis was normal. A small type I hiatal hernia is present. Mild gastroesophageal reflux was seen up to the approximate carinal level. Images of the stomach image duodenum demonstrate no abnormality. FLUOROSCOPY TIME: 3 minutes 20 seconds Number of Spot Images: 10 fluoroscopic spot images taken. 8 cine fluoroscopic run image captures obtained. DOSE AREA PRODUCT: [id number] (microgray-meter squared) FL/FL barium swallow with air IMPRESSION: 1. Small type I hiatal hernia with mild gastro-esophageal reflux 2. Cervical fusion C4-C5 without complication.
== END 2023-07-25 10:33 | disposition home or self-care (01) ==
LOC: HO.XRAY 10:32
PROVIDERS: PCP Physician Assistant; Visit Provider Physician Assistant
DX: R13.13 Dysphagia, pharyngeal phase (principal)
CPT/HCPCS: 74221

== ENCOUNTER → 2023-07-25 10:35 | Outpatient (BNV) | payer OTHER, SELFPAY | PROVIDERS: PCP Physician Assistant; Visit Provider Radiology Diagnostic Radiology | DX: R13.10 Dysphagia, unspecified (principal) | CPT/HCPCS: 74221 ==

== ENCOUNTER 2023-09-30 09:19 | Outpatient (AMB) | payer OTHER, SELFPAY ==
[2023-09-30 09:42] VITALS: BP 130/62; PULSE 80; TEMP 36.6; O2SAT 97
--- NOTE | 2023-09-30 09:42 | MHC.OFFWIV ---
Intake Vital Signs 09/30/23 09:42 Height 5 ft 1 in BP 130/62 Blood Pressure Location Rt brachial Position Sitting Pulse 80 Pulse Source Pulse Oximeter Temp 97.8 F Temp Source Temporal Artery Scan Pulse Oximetry (%) 97 Oxygen Delivery Method Room Air Intake Visit Reasons: EP Ear ache, leaking/bleeding about 2 weeks Intake Note: pt is here for c.o ear ache, leakage with blood x2 weeks Patient Tobacco Use Status: Never used Tobacco Allergies baclofen [BACLOFEN] Allergy (Intermediate, Verified 09/30/23 09:42) memory loss/balance issues lisinopril Adverse Reaction (Intermediate, Verified 09/30/23 09:42) ? increased creatinine metformin Adverse Reaction (Intermediate, Verified 09/30/23 09:42) bad after taste Do you need a note to return to daycare/school/sports/work: Yes HPI HPI Comments History of Present Illness Details L sided earache x 2 weeks + discharge and blood discharge Has not been seen yet She denies hearing now out of L ear; feels blocked She has minimal R sided pain She denies cold like symptoms Denies trauma to ear Motrin helps Yesterday pain was worse; 05/18 [facility] Medical History Arthritis Asthma Back pain with history of spinal surgery Degenerative disorder of bone Diabetes mellitus, type 2 Failed back syndrome, cervical Failed back syndrome, lumbar HLD (hyperlipidemia) HTN (hypertension) Sleep apnea Spinal stenosis T2DM (type 2 diabetes mellitus) Vitamin D deficiency Surgical History S/P excision of lipoma Hx of eye surgery History of microdiscectomy History of umbilical hernia repair History of arthroscopy of right knee History of nasal surgery History of tonsillectomy History of section History of cataract surgery History of laminectomy Hx laparoscopic cholecystectomy Family History Father Substance use disorder Lung cancer Mother Substance use disorder Maternal Grandmother Colon cancer Sister Diabetes Son Malabsorption Asthma Tracheomalacia Other Mental health disorder Social History Household Members: Children Household Members Other:: lives w/ 2 kids next to sister. Housing: House Housing Other:: duplex Do you presently have visiting nurse or other home services: No Alcohol intake: current Alcohol intake frequency: holidays/special occasions only Comment: PATIENT SLEEPING Patient Tobacco Use Status: Never used Tobacco e-Cigarette/Vaping Use: Never Used Second Hand Smoke Exposure: No service: No Current occupational status: disabled Cognitive needs: No Hearing needs: No Vision needs: Yes Review of Systems Const Denies body aches, Denies chills, Denies fatigue and Denies fever(s) ENT Reports ear discharge, Reports otalgia, Denies nasal discharge, Denies sinus pressure and Denies sore throat Card Denies chest pain and Denies dyspnea Resp Denies cough and Denies dyspnea GI Denies abdominal pain Musc Denies myalgias Endo Denies fatigue Physical Exam Vital Signs: Last Vital Signs Temp 97.8 F 09/30/23 09:42 Pulse 80 09/30/23 09:42 BP 130/62 09/30/23 09:42 Pulse Ox 97 09/30/23 09:42 Oxygen Delivery Method Room Air 09/30/23 09:42 General: Non-toxic, NAD. Speaking full sentences. Skin: Warm dry throughout. Eye: EOMI HENT: Airway patent. Uvula midline. No pharyngeal erythema or edema. No SYSTEMS MGR. Bilateral canals clear. L TM slight erythematous, non-bulging. L TM + erythematous and bulging. No obvious perforation or canal edema or discharge. No hemotympanum noted. Respiratory: No respiratory distress MSK: Full ROM extremities. Neurology: A/O. No aphasia or facial droop. Gait without abnormality Psych: Good mood and affect Assessment & Plan Assessment & Plan (1) Otitis media: Code(s): H66.90 - Otitis media, unspecified, unspecified ear Qualifiers: Otitis media type: suppurative Chronicity: acute Laterality: right Recurrence: non-recurrent Spontaneous tympanic membrane rupture: without spontaneous rupture Qualified Code(s): H66.001 - Acute suppurative otitis media without spontaneous rupture of ear drum, right ear Plan: Patient seen and evaluated. I saw no edema or discharg ein canal. COuld not appreciate a ruptured TM Amoxicillin with food F/U with PCP ER if worse Patient gave verbal understanding and had no additional questions or concerns at time of discharge All questions answered Medications: New amoxicillin 875 mg PO BID 20 tabs 0RF H66.90 - Otitis media, unspecified, unspecified ear Coding Level of Care Code Est Pt Level 3 (58340) Diagnoses Non-recurrent acute suppurative otitis media of right ear without spontaneous rupture of tympanic membrane H66.001 Otitis media type: suppurative Chronicity: acute Laterality: right Recurrence: non-recurrent Spontaneous tympanic membrane rupture: without spontaneous rupture
== END 2023-09-30 11:08 | disposition home or self-care (01) ==
PROVIDERS: PCP Physician Assistant; Visit Provider Physician Assistant
DX: H66.001 Acute suppurative otitis media without spontaneous rupture of ear drum, right ear (principal)
CPT/HCPCS: 99213

== ENCOUNTER 2024-02-21 07:54 | Outpatient (AMB) | payer OTHER, SELFPAY ==
--- NOTE | 2024-02-21 08:01 | A.OFFPC_ITS ---
Vital Signs 3 02/21/24 08:03 Height 5 ft 1 in Weight 225 lb BMI 42.5 BP 146/80 H Blood Pressure Location Rt brachial Position Sitting Intake Visit Reasons: Follow Up Director Web Required: No Accompanied by: Self / Same As Patient Allergies baclofen [BACLOFEN] Allergy (Intermediate, Verified 02/21/24 08:15) memory loss/balance issues lisinopril Adverse Reaction (Intermediate, Verified 02/21/24 08:15) ? increased creatinine metformin Adverse Reaction (Intermediate, Verified 02/21/24 08:15) bad after taste Medication List - Last Reconciled 02/21/24 by Collin Arteaga PA-C amoxicillin 875 mg PO BID atorvastatin 40 mg PO DAILY 90 days blood sugar diagnostic (FreeStyle Lite Strips) 4x daily blood sugar diagnostic As directed blood-glucose meter (FreeStyle Lite Meter kit) As directed fluoxetine 60 mg (3 x 20 mg) PO DAILY 30 days insulin aspart U-100 (Novolog FlexPen U-100 Insulin aspart) See Protocol Up to a total daily dose of 30 units via sliding scale subcut 4 times a day before meal/bed; 30 days insulin glargine (Lantus Solostar U-100 Insulin) 30 units (0.3 mL) subcut QPM 30 days lancets (FreeStyle Lancets) 4x daily pen needle, diabetic (Unifine Pentips Plus) USE 5 TIMES A DAY pregabalin 300 mg PO BID 90 days semaglutide (Ozempic) 0.5 mg (0.736 mL) subcut QWEEK 4 weeks sumatriptan succinate take 1 tab at onset of headache; if no relief, may repeat 1 tab after at least 2 hrs; max = 2 tabs/24 hrs PO 30 days Tobacco use date assessed: 02/21/24 Dental Screening Dental Screen Date: 02/21/24 Did you have a dental visit in the last 12 months?: Yes Did you have a dental problem in the last 6 months where you did not have access to dental care?: No Was dental information given to patient?: Patient has dentist HPI Follow Up 2 HPI0 Details Patient is a 53-year-old female here today for follow-up visit. Has a past medical history significant for uncontrolled type 2 diabetes, lumbar disc disease with failed back syndrome, hypertension, asthma and obesity. Hospitalization: Early February 2024-> She was recently admitted to [facility] for an infected dog bite that resulted in a comminuted fracture of the 1st phalanges. She required IV antibiotics due to the soft tissue infection. She did undergo surgery and recently had stitches.. She has upcoming appointment on February 25 with hand surgeon (Dr montgomery). She has been placed in thumb spica splint and has been wrapping wound with dry dressings and Larry bandage. She was discharged from hospital with low-dose short-term script of oxycodone for pain. She has been using NSAIDs on a daily basis as well. CHRONIC MEDICAL CONDITIONS---> .. Type 2 diabetes: Today's A1c at 10.1. She does admit to dietary indiscretion. PLAN:Will increase her Lantus dose to 40 units and tightened up her short-acting insulin getting scale., Patient continues on insulin therapy. Was previously followed by endocrinology Has stopped using metformin due to a bad taste . .. Lumbar disc disease: Was seeing pain management in the past and was on chronic pain medication though has been discharged from practice. Continues to manage her pain with Lyrica and NSAIDs. . . [facility] Medical History Asthma Failed back syndrome, cervical Failed back syndrome, lumbar Vitamin D deficiency HLD (hyperlipidemia) HTN (hypertension) T2DM (type 2 diabetes mellitus) Back pain with history of spinal surgery Spinal stenosis Degenerative disorder of bone Diabetes mellitus, type 2 Sleep apnea Arthritis Surgical History S/P excision of lipoma Hx of eye surgery History of microdiscectomy History of umbilical hernia repair History of arthroscopy of right knee History of nasal surgery History of tonsillectomy History of section History of cataract surgery History of laminectomy Hx laparoscopic cholecystectomy Family History Father Substance use disorder Lung cancer Mother Substance use disorder Maternal Grandmother Colon cancer Sister Diabetes Son Malabsorption Asthma Tracheomalacia Other Mental health disorder Social History Household Members: Children Household Members Other:: lives w/ 2 kids next to sister. Housing: House Housing Other:: duplex Do you presently have visiting nurse or other home services: No Alcohol intake: current Alcohol intake frequency: holidays/special occasions only Comment: PATIENT SLEEPING Patient Tobacco Use Status: Never used Tobacco e-Cigarette/Vaping Use: Never Used Second Hand Smoke Exposure: No service: No Current occupational status: disabled Cognitive needs: No Hearing needs: No Vision needs: Yes Questionnaire PHQ-9 Over the last 2 weeks, how often have you been bothered by any of the following problems? 1. Little interest or pleasure in doing things: not at all 2. Feeling down, depressed, or hopeless: not at all 3. Trouble falling or staying asleep, or sleeping too much: not at all 4. Feeling tired or having little energy: not at all 5. Poor appetite or overeating: not at all 6. Feeling bad about yourself - or that you are a failure or have let yourself or your family down: not at all 7. Trouble concentrating on things, such as reading the newspaper or watching television: not at all 8. Moving or speaking so slowly that other people could have noticed. Or the opposite - being so fidgety or restless that you have been moving around a lot more than usual: not at all 9. Thoughts that you would be better off or of hurting yourself in some way: not at all Total score: 0 Depression Screening Interpretation: Negative Depression Screening Done: Yes 79059 - PHQ-9 Billing: Yes Source: Developed by Drs. Steven Cuevas, Cheri Wood, Ferdinand Villasenor and colleagues, with an educational rios from [employer]. Thrive Questionnaire Date Thrive assessed: 02/21/24 I am a: Patient What is your living situation today?: I have a steady place to live Within the past 12 months, did the food you bought not last and you didn't have the money to get more?: Never true Within the past 12 months, did you worry whether your food would run out before you got money to buy more?: Never true Do you have trouble paying for medicines?: No Do you have trouble getting transportation to medical appointments?: No Do you have trouble paying your heating and electricity bill?: No Do you have trouble taking care of your child, family member or friend?: No Do you have trouble with day-to-day activities such as bathing, preparing meals, shopping, managing finances, etc.?: No Are you currently unemployed and looking for a job?: No Are you interested in more education?: No Please select the resources that you would like help with: None Currently or been in a relationship where the following occur: no concerns reported THRIVE Score: 0 AUDIT C Alcohol Use Questionnaire (AUDIT-C) 1. How often do you have a drink containing alcohol?: Never Total Score: 0 SANJUANA-7 AMB Questionnaire SANJUANA-7 Date SANJUANA - 7 assessed: 02/21/24 Feeling nervous, anxious, or on edge: 1 = Several days Not being able to stop or control worryin = Not at all Worrying too much about different things: 1 = Several days Trouble relaxin = Nearly every day Being so restless that it is hard to sit still: 2 = More than half the days Becoming easily annoyed or irritable: 0 = Not at all Feeling afraid as if something awful might happen: 0 = Not at all Total SANJUANA-7 score (0-4 normal; 5-9 mild; 10-14 moderate; 15-21 severe): 7 Source: Developed by Drs. Steven Cuevas, Cheri Wood, Ferdinand Villasenor and colleagues, with an educational rios from [employer]. SANJUANA-7 Assessment Billing SANJUANA-7 Assessment Tool: SANJUANA-7 Assessment 36268 Review of Systems Const Denies headache(s) Eyes Denies loss of vision ENT Denies vertigo, Denies dizziness, Denies headache(s) and Denies sore throat Card Denies chest pain, Denies leg edema and Denies lightheadedness Resp Denies cough, Denies hemoptysis and Denies wheezing GI Denies abdominal pain, Denies melena, Denies constipation, Denies diarrhea and Denies vomiting Denies urinary frequency, Denies dysuria and Denies urinary urgency Musc Denies arthralgias, Denies joint swelling, Denies numbness and Denies tingling Neuro Denies Abnormal speech present, Denies behavioral changes, Denies vertigo, Denies dizziness, Denies headache(s), Denies loss of vision, Denies memory loss, Denies numbness and Denies tingling Psych Denies anxiety, Denies behavioral changes, Denies depression, Denies memory loss and Denies panic attacks Frank/Lymph Denies easy bleeding and Denies easy bruising Aller/Immun Denies wheezing Physical exam (Primary Care) Vital Signs: Last Vital Signs BP 146/80 H 02/21/24 08:03 BMI result Body Mass Index 42.5 Tobacco/Smoking Status: Tobacco use Status Tobacco use date assessed 02/21/24 02/21/24 08:09 Patient Tobacco Use Status Never used Tobacco 02/21/24 08:02 e-Cigarette/Vaping Use Never Used 02/21/24 08:02 PHQ-9: PHQ-9 Score PHQ-9: Total score 0 02/21/24 08:09 Depression Screening Interpretation: Negative Thrive Assessment: Date of Thrive Assessment Date Thrive assessed 02/21/24 02/21/24 08:09 Currently or been in a relationship where the following occur: no concerns reported Const General: healthy appearing, no acute distress, alert and awake Nutritional Appearance: well nourished Orientation/consciousness: oriented to person, oriented to place and oriented to time HENMT Ears: TM's normal bilaterally General nose exam: Normal nasal mucous membranes and turbinates present Eyes Conjunctivae: conjunctivae normal Sclerae: sclerae normal Pupils: Equal, round and reactive pupils present Neck Neck: Yes no lymphadenopathy and Yes no JVD Thyroid: Thyroid normal Carotids: no bruits Resp Effort & Inspection: normal respiratory effort and not tachypneic Auscultation: no crackles, no rales, no rhonchi and no wheezes Cardio Rate: regular rate Rhythm: regular rhythm Heart sounds: no murmurs and normal S1 and S2 GI Palpation (GI): Soft to palpation, nontender, no hepatomegaly and no splenomegaly Auscultation: normal bowel sounds Skin General skin exam: no rashes or lesions noted and dry skin Neuro General: oriented to person, oriented to place and oriented to time Cranial nerves: Yes Equal, round and reactive pupils present Speech: No Abnormal speech present Gait exam (Neuro): Normal gait present Motor exam (neuro): no tremor noted Extrem Right upper extremity: full ROM Left upper extremity: full ROM Hand/finger images: 2 1. WEARING THUMB SPICA SPLINT, UNDERNEATH WRAPPED WITH LARRY BANDAGE. Right lower extremity: full ROM; no edema Left lower extremity: full ROM; no edema Psych Mental Status: mental status grossly normal Speech and movement: Normal speech and movement present Affect: normal affect Attitude: cooperative Thought process: Normal thought process present Results AMB Hemoglobin A1c 2 AMB Hemoglobin A1c 10.1 % Last Edit by SIXTO Robison on 02/21/24 08: 13 Assessment and Plan Assessment & Plan (1) Hospital discharge follow-up: Code(s): Z09 - Encounter for follow-up examination after completed treatment for conditions other than malignant neoplasm (2) Diabetes mellitus, type 2: Code(s): E11.9 - Type 2 diabetes mellitus without complications Qualifiers: Diabetes mellitus nursing home insulin use: with nursing home use Diabetes mellitus complication status: with hyperglycemia Qualified Code(s): E11.65 - Type 2 diabetes mellitus with hyperglycemia; Z79.4 - FPC (current) use of insulin Plan: Patient's type 2 diabetes suboptimally controlled with A1c today at 10.1. She does admit to dietary indiscretion. Will increase her Lantus to 40 units and tightened up her preprandial short- acting insulin Sliding scale. Will continue Ozempic 0.5 mg weekly and will consider increasing to 1 mg in near future Again goal A1c is to be below 7.0 (3) Dog bite of hand: Code(s): S61.459A - Open bite of unspecified hand, initial encounter; W54.0XXA - Bitten by dog, initial encounter Qualifiers: Encounter type: subsequent encounter Laterality: left Qualified Code(s): S61.452D - Open bite of left hand, subsequent encounter; W54.0XXD - Bitten by dog, subsequent encounter Plan: As per HPI patient tried to break up a dog fight resulting in a severe bite of her right thumb, fracturing her thumb and causing an infection. Patient required surgery to align bones and fixed tendons. Now doing her own home wound care on her right thumb. Patient now followed by hand surgeon at [facility] and has upcoming appointment February 25. Still has some significant pain worse at night and is asking for a short-term script pain medication. (4) HTN (hypertension): Code(s): I10 - Essential (primary) hypertension Qualifiers: Hypertension type: unspecified Qualified Code(s): I10 - Essential (primary) hypertension Plan: Patient's blood pressure acceptable today in office. Her blood pressure has been managed with lifestyle modifications. Goal blood pressures to be below 140/90 (5) HLD (hyperlipidemia): Code(s): E78.5 - Hyperlipidemia, unspecified Qualifiers: Hyperlipidemia type: unspecified Qualified Code(s): E78.5 - Hyperlipidemia, unspecified Plan: Has been quite awhile since lipid panel checked. She promises to get fasting lipids before next office visit. Goal LDL to be below 100 (6) Fracture of thumb, left, closed: Code(s): S62.502A - Fracture of unspecified phalanx of left thumb, initial encounter for closed fracture Qualifiers: Encounter type: subsequent encounter Phalanx: proximal Fracture alignment: nondisplaced Fracture healing: with delayed healing Qualified Code(s): S62.515G - Nondisplaced fracture of proximal phalanx of left thumb, subsequent encounter for fracture with delayed healing Plan: As per HPI Orders: Orders 2 Comprehensive Elizabeth. Panel Fast Today E78.5 - Hyperlipidemia, unspecified Lipid Panel Today E78.5 - Hyperlipidemia, unspecified Complete Blood Count no Diff Today S61.452D - Open bite of left hand, subsequent encounter, W54.0XXD - Bitten by dog, subsequent encounter Vitamin D 25-OH Total Today E55.9 - Vitamin D deficiency, unspecified AMB Hemoglobin A1c Today E11.65 - Type 2 diabetes mellitus with hyperglycemia, Z79.4 - FPC (current) use of insulin Medications: New 2 oxycodone Partial Fill upon patient request. 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 Diabetes mellitus complication status: with hyperglycemia Dog bite of left hand, subsequent encounter S61.452D; W54.0XXD Encounter type: subsequent encounter Laterality: left Hypertension, unspecified type I10 Hypertension type: unspecified Hyperlipidemia, unspecified hyperlipidemia type E78.5 Hyperlipidemia type: unspecified Closed nondisplaced fracture of proximal phalanx of left thumb with delayed healing, subsequent encounter S62.515G Encounter type: subsequent encounter Phalanx: proximal Fracture alignment: nondisplaced Fracture healing: with delayed healing Additional Codes SANJUANA-7 Assessment Billing - SANJUANA-7 Assessment Tool: SANJUANA-7 Assessment [id number] ([id number])
[2024-02-21 08:03] VITALS: BP 146/80; BMI 42.5
== END 2024-02-21 08:37 | disposition home or self-care (01) ==
PROVIDERS: PCP Physician Assistant; Visit Provider Physician Assistant
DX: Z09 Encounter for follow-up examination after completed treatment for conditions other than malignant neoplasm (principal); E11.65 Type 2 diabetes mellitus with hyperglycemia; Z79.4 Long term (current) use of insulin; S61.452D Open bite of left hand, subsequent encounter; W54.0XXD Bitten by dog, subsequent encounter; I10 Essential (primary) hypertension; E78.5 Hyperlipidemia, unspecified; S62.51 Fracture of proximal phalanx of thumb
CPT/HCPCS: 83036; 99214

== ENCOUNTER 2024-03-15 08:39 | Outpatient (REF) | payer OTHER, SELFPAY ==
[2024-03-15 09:48] LABS: Hematocrit 39.4 % (37.0-47.0); Hemoglobin 12.8 g/dl (12.0-16.0); Mean Corpuscular HGB Conc 32.5 g/dl (31.0-35.0); Mean Corpuscular Hemoglobin 29.4 pg (27.0-33.0); Mean Corpuscular Volume 90.6 fL (80.0-98.0); Platelet Count 304 X10*3/uL (160-400); Red Blood Count 4.35 X10*6/uL (4.20-5.50); Red Cell Distribution Width 13.5 % (11.0-16.0); White Blood Count 13.5 X10*3/uL (4.8-10.8)
[2024-03-15 09:58] LABS: Estimated Average Glucose 214 mg/dL; Hemoglobin A1c % 9.1 % (<6.0)
[2024-03-15 10:31] LABS: Alanine Aminotransferase 18 U/L (0-31); Alkaline Phosphatase 107 U/L (39-117); Anion Gap 12 (12-20); Aspartate Amino Transferase 14 U/L (5-31); Bilirubin Total 0.2 mg/dL (0.0-1.0); Blood Urea Nitrogen 21 mg/dL (9-16); Calcium 9.6 mg/dL (8.4-10.2); Carbon Dioxide 20 mmol/L (22-29); Chloride 112 mmol/L (96-108); Cholesterol 152 mg/dL (<200); Estimated Glomerular Filt Rate > 60; Glucose Fasting 210 mg/dL (60-99); HDL Cholesterol 31 mg/dL (>40); LDL Cholesterol Calculated 87 mg/dL (<100); Potassium 3.8 mmol/L (3.3-5.1); Sodium 140 mmol/L (135-145); Total Protein 6.8 g/dL (6.5-8.0); Triglycerides 171 mg/dL (<150)
[2024-03-15 10:49] LABS: Vitamin D 25-OH Total 31.7 ng/mL (>30)
== END 2024-03-15 08:40 | disposition home or self-care (01) ==
LOC: HO.LAB 08:39
PROVIDERS: PCP Physician Assistant; Visit Provider Physician Assistant
DX: E11.42 Type 2 diabetes mellitus with diabetic polyneuropathy (principal); Z79.4 Long term (current) use of insulin; E78.5 Hyperlipidemia, unspecified; E55.9 Vitamin D deficiency, unspecified
CPT/HCPCS: 36415; 80053; 80061; 82306; 83036; 85027

== ENCOUNTER 2024-04-08 15:51 | Outpatient (AMB) | payer OTHER, SELFPAY ==
[2024-04-08 16:20] VITALS: BP 110/68; PULSE 85; O2SAT 97; BMI 43.5
--- NOTE | 2024-04-08 16:20 | MHC.PC.OV ---
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 increased creatinine metformin Adverse Reaction (Intermediate, Verified 04/08/24 16:33) bad after taste Medication List - Last Reconciled 04/08/24 by Collin Arteaga PA-C blood sugar diagnostic (FreeStyle Lite Strips) 4x daily blood sugar diagnostic As directed blood-glucose meter (FreeStyle Lite Meter kit) As directed fluoxetine 60 mg (3 x 20 mg) PO DAILY 30 days insulin aspart U-100 (Novolog FlexPen U-100 Insulin aspart) See Protocol Up to a total daily dose of 30 units via sliding scale subcut 4 times a day before meal/bed; 30 days insulin glargine (Lantus Solostar U-100 Insulin) 40 units (0.4 mL) subcut QPM 30 days lancets (FreeStyle Lancets) 4x daily pen needle, diabetic (Unifine Pentips Plus) USE 5 TIMES A DAY pregabalin 300 mg PO BID 90 days semaglutide (Ozempic) 0.5 mg (0.736 mL) subcut QWEEK 4 weeks sumatriptan succinate take 1 tab at onset of headache; if no relief, may repeat 1 tab after at least 2 hrs; max = 2 tabs/24 hrs PO 30 days Tobacco use date assessed: 02/21/24 Dental Screening Dental Screen Date: 02/21/24 HPI Follow up diabetes HPI Details Patient is a 53-year-old female here today for follow-up visit. Has a past medical history significant for uncontrolled type 2 diabetes, lumbar disc disease with failed back syndrome, hypertension, asthma and obesity. Recently had left thumb surgery due to dog bite . She reports getting hardware placement/pins in her left thumb. She has delayed healing due to her uncontrolled type 2 diabetes. Will continue to follow hand and wrist surgeon at [facility]. CHRONIC MEDICAL CONDITIONS---> .. Type 2 diabetes: Type 2 diabetes has been suboptimally controlled for quite awhile now.. She does admit to dietary indiscretion. At last visit we increased her Lantus and tightened up her short-acting insulin scale. She does report her sugars being better controlled. A1c has dropped 1 point. She has not been able to tolerate metformin. PLAN:Will increase her Ozempic to 1 mg weekly for better glycemic control and added benefit of weight loss. . .. Lumbar disc disease: Was seeing pain management in the past and was on chronic pain medication though has been discharged from practice. Continues to manage her pain with Lyrica and NSAIDs. Laboratory Tests 04/14/22 04/15/22 03/23/23 08:07 12:35 07:20 WBC RBC Creatinine Random Glucose 225 H Fasting Glucose Hemoglobin A1c % 7.9 Hgb A1c (Clinic) Cholesterol 233 LDL Cholesterol, C alc 04/05/23 02/21/24 03/15/24 08:49 08:12 08:55 WBC 13.5 H RBC 4.35 Creatinine 0.68 Random Glucose Fasting Glucose 210 H Hemoglobin A1c % 9.1 H Hgb A1c (Clinic) 10.1 H Cholesterol 121 152 LDL Cholesterol, C alc 87 PFSH Medical History Asthma Failed back syndrome, cervical Failed back syndrome, lumbar Vitamin D deficiency HLD (hyperlipidemia) HTN (hypertension) Back pain with history of spinal surgery Spinal stenosis Degenerative disorder of bone Diabetes mellitus, type 2 Sleep apnea Arthritis Surgical History S/P excision of lipoma Hx of eye surgery History of microdiscectomy History of umbilical hernia repair History of arthroscopy of right knee History of nasal surgery History of tonsillectomy History of section History of cataract surgery History of laminectomy Hx laparoscopic cholecystectomy Family History Father Substance use disorder Lung cancer Mother Substance use disorder Maternal Grandmother Colon cancer Sister Diabetes Son Malabsorption Asthma Tracheomalacia Other Mental health disorder Social History Household Members: Children Household Members Other:: lives w/ 2 kids next to sister. Housing: House Housing Other:: duplex Do you presently have visiting nurse or other home services: No Alcohol intake: current Alcohol intake frequency: holidays/special occasions only Comment: PATIENT SLEEPING Patient Tobacco Use Status: Never used Tobacco e-Cigarette/Vaping Use: Never Used Second Hand Smoke Exposure: No service: No Current occupational status: disabled Cognitive needs: No Hearing needs: No Vision needs: Yes Questionnaire Thrive Questionnaire Date Thrive assessed: 02/21/24 SANJUANA-7 AMB Questionnaire SANJUANA-7 Date SANJUANA - 7 assessed: 02/21/24 Source: Developed by Drs. Steven Cuevas, Cheri Wood, Ferdinand Villasenor and colleagues, with an educational rios from [employer]. Review of Systems Const Denies headache(s) Eyes Denies loss of vision ENT Denies vertigo, Denies dizziness, Denies headache(s) and Denies sore throat Card Denies chest pain, Denies leg edema and Denies lightheadedness Resp Denies cough, Denies hemoptysis and Denies wheezing GI Denies abdominal pain, Denies melena, Denies constipation, Denies diarrhea and Denies vomiting Denies urinary frequency, Denies dysuria and Denies urinary urgency Musc Denies arthralgias, Denies joint swelling, Denies numbness and Denies tingling Neuro Denies Abnormal speech present, Denies behavioral changes, Denies vertigo, Denies dizziness, Denies headache(s), Denies loss of vision, Denies memory loss, Denies numbness and Denies tingling Psych Denies anxiety, Denies behavioral changes, Denies depression, Denies memory loss and Denies panic attacks Frank/Lymph Denies easy bleeding and Denies easy bruising Aller/Immun Denies wheezing Physical exam (Primary Care) Vital Signs: Last Vital Signs Pulse 85 04/08/24 16:20 BP 110/68 04/08/24 16:20 Pulse Ox 97 04/08/24 16:20 Oxygen Delivery Method Room Air 04/08/24 16:20 BMI result Body Mass Index 43.5 Tobacco/Smoking Status: Tobacco use Status Tobacco use date assessed 02/21/24 04/08/24 16:21 Patient Tobacco Use Status Never used Tobacco 04/08/24 16:21 e-Cigarette/Vaping Use Never Used 04/08/24 16:21 Thrive Assessment: Date of Thrive Assessment Date Thrive assessed 02/21/24 04/08/24 16:21 Const General: no acute distress, alert and awake Nutritional Appearance: well nourished Orientation/consciousness: oriented to person, oriented to place and oriented to time HENMT Ears: TM's normal bilaterally General nose exam: Normal nasal mucous membranes and turbinates present Eyes Conjunctivae: conjunctivae normal Sclerae: sclerae normal Pupils: Equal, round and reactive pupils present Neck Neck: Yes no lymphadenopathy and Yes no JVD Thyroid: Thyroid normal Carotids: no bruits Resp Effort & Inspection: normal respiratory effort and not tachypneic Auscultation: no crackles, no rales, no rhonchi and no wheezes Cardio Rate: regular rate Rhythm: regular rhythm Heart sounds: no murmurs and normal S1 and S2 GI Palpation (GI): Soft to palpation, nontender, no hepatomegaly and no splenomegaly Auscultation: normal bowel sounds Skin General skin exam: no rashes or lesions noted and dry skin Neuro General: oriented to person, oriented to place and oriented to time Cranial nerves: Yes Equal, round and reactive pupils present Speech: No Abnormal speech present Gait exam (Neuro): Normal gait present Motor exam (neuro): no tremor noted Extrem Right upper extremity: full ROM Left upper extremity: full ROM Hand/finger images: 1. HAS SPLINT WITH KOMAL WRAP BANDAGE OVER LEFT HAND. Right lower extremity: full ROM; no edema Left lower extremity: full ROM; no edema Psych Mental Status: mental status grossly normal Speech and movement: Normal speech and movement present Affect: normal affect Attitude: cooperative Thought process: Normal thought process present Assessment and Plan Assessment & Plan (1) Diabetes mellitus, type 2: Code(s): E11.9 - Type 2 diabetes mellitus without complications Qualifiers: Diabetes mellitus complication status: with hyperglycemia Diabetes mellitus intermediate insulin use: with intermediate use Qualified Code(s): E11.65 - Type 2 diabetes mellitus with hyperglycemia; Z79.4 - terminal manager (current) use of insulin Plan: Patient's type 2 diabetes suboptimally controlled . Most recent A1c at 9.1 from 10.1. She does admit to dietary indiscretion though has been adherent to all for diabetic medication.. SUGARS HAVE BEEN BETTER SINCE INCREASING HER LANTUS DOSE AND TIGHTENING OF HER SHORT-ACTING INSULIN SLIDING SCALE. WILL INCREASE HER OZEMPIC TO 1 MG FOR BETTER GLYCEMIC CONTROL. Again goal A1c is to be below 7.0 (2) Dog bite of hand: Code(s): S61.459A - Open bite of unspecified hand, initial encounter; W54.0XXA - Bitten by dog, initial encounter Qualifiers: Encounter type: subsequent encounter Laterality: left Qualified Code(s): S61.452D - Open bite of left hand, subsequent encounter; W54.0XXD - Bitten by dog, subsequent encounter Plan: As per HPI patient tried to break up a dog fight resulting in a severe bite of her right thumb, fracturing her thumb and causing an infection. Patient required surgery to align bones and fixed tendons. Due to her type 2 diabetes she had some delayed healing in needed repeat surgery to repair left thumb bones. Patient now followed by hand surgeon at [facility] and has an appointment this week to remove splint.. (3) HTN (hypertension): Code(s): I10 - Essential (primary) hypertension Qualifiers: Hypertension type: unspecified Qualified Code(s): I10 - Essential (primary) hypertension Plan: Patient's blood pressure acceptable today in office. Her blood pressure has been managed with lifestyle modifications. Goal blood pressures to be below 140/90 (4) HLD (hyperlipidemia): Code(s): E78.5 - Hyperlipidemia, unspecified Qualifiers: Hyperlipidemia type: unspecified Qualified Code(s): E78.5 - Hyperlipidemia, unspecified Plan: Most recent fasting lipid panel showing good control over total cholesterol and LDL. Goal LDL to remain below 100 (5) Fracture of thumb, left, closed: Code(s): S62.502A - Fracture of unspecified phalanx of left thumb, initial encounter for closed fracture Qualifiers: Encounter type: subsequent encounter Fracture alignment: nondisplaced Fracture healing: with delayed healing Phalanx: proximal Qualified Code(s): S62.515G - Nondisplaced fracture of proximal phalanx of left thumb, subsequent encounter for fracture with delayed healing Plan: As per HPI/ above. Had a fractured left thumb due to a dog bite incident. Followed by hand and wrist surgeon at [facility] (6) MDD (major depressive disorder), recurrent episode, mild: Code(s): F33.0 - Major depressive disorder, recurrent, mild Plan: Patient's depression has been well controlled with current SSRI therapy. Orders: Orders Lipid Panel 04/08/24 E78.5 - Hyperlipidemia, unspecified Comprehensive [place]. Panel Fast 04/08/24 I10 - Essential (primary) hypertension Complete Blood Count no Diff 04/08/24 I10 - Essential (primary) hypertension Medications: New semaglutide (Ozempic) 1 mg (0.75 mL) subcut QWEEK 3 mL 3RF 4 weeks E11.65 - Type 2 diabetes mellitus with hyperglycemia, Z79.4 - terminal manager (current) use of insulin Refilled fluoxetine 60 mg (3 x 20 mg) PO DAILY 90 caps 2RF 30 days F41.9 - Anxiety disorder, unspecified sumatriptan succinate take 1 tab at onset of headache; if no relief, may repeat 1 tab after at least 2 hrs; max = 2 tabs/24 hrs PO 12 tabs 3RF 30 days G43.009 - Migraine without aura, not intractable, without status migrainosus pregabalin 300 mg PO BID 180 caps 2RF 90 days M96.1 - Postlaminectomy syndrome, not elsewhere classified blood sugar diagnostic (FreeStyle Lite Strips) 4x daily 100 ea 8RF E11.65 - Type 2 diabetes mellitus with hyperglycemia, Z79.4 - terminal manager (current) use of insulin Discontinued semaglutide (Ozempic) Discontinued Reason: Doctor's Order 0.5 mg (0.736 mL) subcut QWEEK 4 weeks 3.2 mL 3RF E11.9 - Type 2 diabetes mellitus without complications Patient Instructions: Goal: A1c to be below 7.0, LDL to remain below 100 Barriers: Adherence to physical activity and healthy eating habits Coding Level of Care Code Est Pt Level 4 (71460) Complex EM visit Add On G2211 Diagnoses Type 2 diabetes mellitus with hyperglycemia, with long-term current use of insulin E11.65; Z79.4 Diabetes mellitus complication status: with hyperglycemia Diabetes mellitus terminal manager insulin use: with intermediate use Dog bite of left hand, subsequent encounter S61.452D; W54.0XXD Encounter type: subsequent encounter Laterality: left Hypertension, unspecified type I10 Hypertension type: unspecified Hyperlipidemia, unspecified hyperlipidemia type E78.5 Hyperlipidemia type: unspecified Closed nondisplaced fracture of proximal phalanx of left thumb with delayed healing, subsequent encounter S62.515G Encounter type: subsequent encounter Fracture alignment: nondisplaced Fracture healing: with delayed healing Phalanx: proximal MDD (major depressive disorder), recurrent episode, mild F33.0
== END 2024-04-08 16:50 | disposition home or self-care (01) ==
PROVIDERS: PCP Physician Assistant; Visit Provider Physician Assistant
DX: E11.65 Type 2 diabetes mellitus with hyperglycemia (principal); Z79.4 Long term (current) use of insulin; F33.0 Major depressive disorder, recurrent, mild; S61.452A Open bite of left hand, initial encounter; W54.0XXA Bitten by dog, initial encounter; I10 Essential (primary) hypertension; E78.5 Hyperlipidemia, unspecified; S62.51 Fracture of proximal phalanx of thumb
CPT/HCPCS: 99214; G2211

== ENCOUNTER 2024-05-16 07:54 | Outpatient (AMB) | payer OTHER, SELFPAY ==
[2024-05-16 08:01] VITALS: BP 136/78; PULSE 72; O2SAT 98; BMI 43.5
--- NOTE | 2024-05-16 08:01 | MHC.PC.OV ---
Vital Signs 05/16/24 08:01 Height 5 ft 1 in Weight 230 lb BMI 43.5 BP 136/78 Blood Pressure Location Rt brachial Position Sitting Pulse 72 Pulse Source Pulse Oximeter Pulse Oximetry (%) 98 Oxygen Delivery Method Room Air Intake Visit Reasons: Chronic pain/hand surgery Allergies baclofen [BACLOFEN] Allergy (Intermediate, Verified 05/16/24 08:08) memory loss/balance issues lisinopril Adverse Reaction (Intermediate, Verified 05/16/24 08:08) ? increased creatinine metformin Adverse Reaction (Intermediate, Verified 05/16/24 08:08) bad after taste Medication List - Last Reconciled 05/16/24 by Collin Arteaga PA-C blood sugar diagnostic (FreeStyle Lite Strips) 4x daily blood sugar diagnostic As directed blood-glucose meter (FreeStyle Lite Meter kit) As directed fluoxetine 60 mg (3 x 20 mg) PO DAILY 30 days insulin aspart U-100 (Novolog FlexPen U-100 Insulin aspart) See Protocol Up to a total daily dose of 30 units via sliding scale subcut 4 times a day before meal/bed; 30 days insulin glargine (Lantus Solostar U-100 Insulin) 40 units (0.4 mL) subcut QPM 30 days lancets (FreeStyle Lancets) 4x daily oxycodone 5 mg PO BID PRN pen needle, diabetic (Unifine Pentips Plus) USE 5 TIMES A DAY pregabalin 300 mg PO BID 90 days semaglutide (Ozempic) 1 mg (0.75 mL) subcut QWEEK 4 weeks sumatriptan succinate take 1 tab at onset of headache; if no relief, may repeat 1 tab after at least 2 hrs; max = 2 tabs/24 hrs PO 30 days Tobacco use date assessed: 02/21/24 Dental Screening Dental Screen Date: 02/21/24 HPI Chronic pain/hand surgery HPI Details Patient is a 53-year-old female here today for follow-up visit. Has a past medical history significant for uncontrolled type 2 diabetes, lumbar disc disease with failed back syndrome, hypertension, asthma and obesity. Recently had left thumb surgery due to dog bite . She reports getting hardware placement/pins in her left thumb. She has delayed healing due to her uncontrolled type 2 diabetes and was complicated by an infection. Will continue to follow hand and wrist surgeon at [facility]. She is currently having her pain managed with oxycodone 5 mg daily p.r.n.. She is asking if PCP can manage her pain for the time being before she gets recurrent surgery. She reports they are planning on doing reconstruction surgery with cement and perhaps hardware CHRONIC MEDICAL CONDITIONS---> .. Type 2 diabetes: Type 2 diabetes has been suboptimally controlled for quite awhile now. Most recent A1c at 9.1. She does admit to dietary indiscretion. At last visit we increased her Lantus and tightened up her short-acting insulin scale. She does report her sugars being better controlled. A1c has dropped 1 point. She has not been able to tolerate metformin. We have increased her Ozempic to 1 mg and she reports sugars have been a bit better. .. Lumbar disc disease: Was seeing pain management in the past and was on chronic pain medication though has been discharged from practice. Continues to manage her pain with Lyrica and NSAID PFSH Medical History Asthma Failed back syndrome, cervical Failed back syndrome, lumbar Vitamin D deficiency HLD (hyperlipidemia) HTN (hypertension) Back pain with history of spinal surgery Spinal stenosis Degenerative disorder of bone Diabetes mellitus, type 2 Sleep apnea Arthritis Surgical History S/P excision of lipoma Hx of eye surgery History of microdiscectomy History of umbilical hernia repair History of arthroscopy of right knee History of nasal surgery History of tonsillectomy History of section History of cataract surgery History of laminectomy Hx laparoscopic cholecystectomy Family History Father Substance use disorder Lung cancer Mother Substance use disorder Maternal Grandmother Colon cancer Sister Diabetes Son Malabsorption Asthma Tracheomalacia Other Mental health disorder Social History Household Members: Children Household Members Other:: lives w/ 2 kids next to sister. Housing: House Housing Other:: duplex Do you presently have visiting nurse or other home services: No Alcohol intake: current Alcohol intake frequency: holidays/special occasions only Comment: PATIENT SLEEPING Patient Tobacco Use Status: Never used Tobacco e-Cigarette/Vaping Use: Never Used Second Hand Smoke Exposure: No service: No Current occupational status: disabled Cognitive needs: No Hearing needs: No Vision needs: Yes Questionnaire PHQ-9 Over the last 2 weeks, how often have you been bothered by any of the following problems? 1. Little interest or pleasure in doing things: not at all 2. Feeling down, depressed, or hopeless: not at all 3. Trouble falling or staying asleep, or sleeping too much: not at all 4. Feeling tired or having little energy: not at all 5. Poor appetite or overeating: not at all 6. Feeling bad about yourself - or that you are a failure or have let yourself or your family down: not at all 7. Trouble concentrating on things, such as reading the newspaper or watching television: not at all 8. Moving or speaking so slowly that other people could have noticed. Or the opposite - being so fidgety or restless that you have been moving around a lot more than usual: not at all 9. Thoughts that you would be better off or of hurting yourself in some way: not at all Total score: 0 Depression Screening Interpretation: Negative Depression Screening Done: Yes 85460 - PHQ-9 Billing: Yes Source: Developed by Drs. Steven Cuevas, Cheri Wood, Ferdinand Villasenor and colleagues, with an educational rios from [email or web address]. Thrive Questionnaire Date Thrive assessed: 02/21/24 AUDIT C Alcohol Use Questionnaire (AUDIT-C) 1. How often do you have a drink containing alcohol?: Never 3. How often do you have six or more drinks on one occasion?: Never Total Score: 0 SANJUANA-7 AMB Questionnaire SANJUANA-7 Date SANJUANA - 7 assessed: 02/21/24 Source: Developed by Drs. Steven Cuevas, Ferdinand Henriquez and colleagues, with an educational rios from [email or web address]. Review of Systems Const Denies headache(s) Eyes Denies loss of vision ENT Denies vertigo, Denies dizziness, Denies headache(s) and Denies sore throat Card Denies chest pain, Denies leg edema and Denies lightheadedness Resp Denies cough, Denies hemoptysis and Denies wheezing GI Denies abdominal pain, Denies melena, Denies constipation, Denies diarrhea and Denies vomiting Denies urinary frequency, Denies dysuria and Denies urinary urgency Musc Denies arthralgias, Denies joint swelling, Denies numbness and Denies tingling Neuro Denies Abnormal speech present, Denies behavioral changes, Denies vertigo, Denies dizziness, Denies headache(s), Denies loss of vision, Denies memory loss, Denies numbness and Denies tingling Psych Denies anxiety, Denies behavioral changes, Denies depression, Denies memory loss and Denies panic attacks Frank/Lymph Denies easy bleeding and Denies easy bruising Aller/Immun Denies wheezing Physical exam (Primary Care) Vital Signs: Oxygen Delivery Method Room Air 05/16/24 08:01 BMI result Body Mass Index 43.5 Tobacco/Smoking Status: Tobacco use Status Tobacco use date assessed 02/21/24 04/08/24 16:21 Patient Tobacco Use Status Never used Tobacco 04/08/24 16:21 e-Cigarette/Vaping Use Never Used 04/08/24 16:21 Depression Screening Interpretation: Negative Thrive Assessment: Date of Thrive Assessment Date Thrive assessed 02/21/24 04/08/24 16:21 Const General: healthy appearing, no acute distress, alert and awake Nutritional Appearance: well nourished Orientation/consciousness: oriented to person, oriented to place and oriented to time HENMT Ears: TM's normal bilaterally General nose exam: Normal nasal mucous membranes and turbinates present Eyes Conjunctivae: conjunctivae normal Sclerae: sclerae normal Pupils: Equal, round and reactive pupils present Neck Neck: Yes no lymphadenopathy and Yes no JVD Thyroid: Thyroid normal Carotids: no bruits Resp Effort & Inspection: normal respiratory effort and not tachypneic Auscultation: no crackles, no rales, no rhonchi and no wheezes Cardio Rate: regular rate Rhythm: regular rhythm Heart sounds: no murmurs and normal S1 and S2 GI Palpation (GI): Soft to palpation, nontender, no hepatomegaly and no splenomegaly Auscultation: normal bowel sounds Skin General skin exam: no rashes or lesions noted and dry skin Neuro General: oriented to person, oriented to place and oriented to time Cranial nerves: Yes Equal, round and reactive pupils present Speech: No Abnormal speech present Gait exam (Neuro): Normal gait present Motor exam (neuro): no tremor noted Extrem Other: LEFT HAND: WEARING A SUPPORTIVE SLING, LEFT THUMB SOMEWHAT DEFORMED AND ANGULATED. Right upper extremity: full ROM Left upper extremity: full ROM Right lower extremity: full ROM; no edema Left lower extremity: full ROM; no edema Psych Mental Status: mental status grossly normal Speech and movement: Normal speech and movement present Affect: normal affect Attitude: cooperative Thought process: Normal thought process present Assessment and Plan Assessment & Plan (1) Fracture of thumb, left, closed: Code(s): S62.502A - Fracture of unspecified phalanx of left thumb, initial encounter for closed fracture Qualifiers: Encounter type: subsequent encounter Phalanx: proximal Fracture alignment: nondisplaced Fracture healing: with delayed healing Qualified Code(s): S62.515G - Nondisplaced fracture of proximal phalanx of left thumb, subsequent encounter for fracture with delayed healing Plan: Patient is followed by [facility] plastic and hand surgery. She is due to see them in mid 06/28/2024. Continues to have left thumb pain due to delayed healing from her traumatic fracture temporarily due to the fracture complicated by infection. She is requiring pain management. Will try to get records of her office visits and justification the need of narcotic pain management for her hand issue from surgeon. Will temporarily treat her pain with oxycodone 5 mg daily prn. (2) Diabetes mellitus, type 2: Code(s): E11.9 - Type 2 diabetes mellitus without complications Qualifiers: Diabetes mellitus senior care insulin use: with terminal makeup operator use Diabetes mellitus complication status: with hyperglycemia Qualified Code(s): E11.65 - Type 2 diabetes mellitus with hyperglycemia; Z79.4 - alf (current) use of insulin Plan: Patient's type 2 diabetes suboptimally controlled . Most recent A1c at 9.1 Will continue current doses of insulin and GLP 1. Her sugars are reported as a bit better since increasing GL P1 dose. SHE DOES UNDERSTAND SHE NEEDS BETTER GLYCEMIC CONTROL IN ORDER TO HEAL HER HAND FRACTURE. She will continue working on dietary modifications Again goal A1c is to be below 7.0 Medications: New oxycodone 5 mg PO Q8H 7 days 21 caps 0RF S62.515G - Nondisplaced fracture of proximal phalanx of left thumb, subsequent encounter for fracture with delayed healing Coding Level of Care Code Est Pt Level 3 (83194) Diagnoses Closed nondisplaced fracture of proximal phalanx of left thumb with delayed healing, subsequent encounter S62.515G Encounter type: subsequent encounter Phalanx: proximal Fracture alignment: nondisplaced Fracture healing: with delayed healing Type 2 diabetes mellitus with hyperglycemia, with long-term current use of insulin E11.65; Z79.4 Diabetes mellitus terminal makeup operator insulin use: with terminal makeup operator use Diabetes mellitus complication status: with hyperglycemia
== END 2024-05-16 08:20 | disposition home or self-care (01) ==
PROVIDERS: PCP Physician Assistant; Visit Provider Physician Assistant
DX: S62.51 Fracture of proximal phalanx of thumb (principal); E11.65 Type 2 diabetes mellitus with hyperglycemia; Z79.4 Long term (current) use of insulin
CPT/HCPCS: 99213

== ENCOUNTER 2024-07-27 09:40 | Outpatient (AMB) | payer OTHER, SELFPAY ==
[2024-07-27 10:57] VITALS: BP 114/68; PULSE 70; TEMP 36.7; O2SAT 99; BMI 41.8
--- NOTE | 2024-07-27 10:57 | MHC.OFFWIV ---
Intake Vital Signs 07/27/24 10:57 Height 5 ft 1 in Weight 221 lb BMI 41.8 BP 114/68 Blood Pressure Location Rt brachial Position Sitting Pulse 70 Pulse Source Pulse Oximeter Temp 98.1 F Temp Source Oral Pulse Oximetry (%) 99 Oxygen Delivery Method Room Air Intake Visit Reasons: EP-Low back pain, Fell Intake Note: Pt is here today c/o Low back pain due to a fall [id number] ago Patient Tobacco Use Status: Never used Tobacco Allergies baclofen [BACLOFEN] Allergy (Intermediate, Verified 07/27/24 10:57) memory loss/balance issues lisinopril Adverse Reaction (Intermediate, Verified 07/27/24 10:57) ? increased creatinine metformin Adverse Reaction (Intermediate, Verified 07/27/24 10:57) bad after taste HPI HPI Comments History of Present Illness Details Fell a couple weeks ago and hurt her back Trip and fall She said she did not see anyone after injury; was given prednisone by PCP for her aches She said usually she feels better by now Lower back with radiation down R leg 10/10 worse with movements No urine/bowel incontinence of complaint Worse with movement Using heat and predisone without relief No abdominal pain No HT or LOC during event No numbness or tingling in leg The next day she had surgery on L thumb by ortho after a dog bite; Dr somers [facility] Medical History Asthma Failed back syndrome, cervical Failed back syndrome, lumbar Vitamin D deficiency HLD (hyperlipidemia) HTN (hypertension) Back pain with history of spinal surgery Spinal stenosis Degenerative disorder of bone Diabetes mellitus, type 2 Sleep apnea Arthritis Surgical History S/P excision of lipoma Hx of eye surgery History of microdiscectomy History of umbilical hernia repair History of arthroscopy of right knee History of nasal surgery History of tonsillectomy History of section History of cataract surgery History of laminectomy Hx laparoscopic cholecystectomy Family History Father Substance use disorder Lung cancer Mother Substance use disorder Maternal Grandmother Colon cancer Sister Diabetes Son Malabsorption Asthma Tracheomalacia Other Mental health disorder Social History Household Members: Children Household Members Other:: lives w/ 2 kids next to sister. Housing: House Housing Other:: duplex Do you presently have visiting nurse or other home services: No Alcohol intake: current Alcohol intake frequency: holidays/special occasions only Comment: PATIENT SLEEPING Patient Tobacco Use Status: Never used Tobacco e-Cigarette/Vaping Use: Never Used Second Hand Smoke Exposure: No service: No Current occupational status: disabled Cognitive needs: No Hearing needs: No Vision needs: Yes Review of Systems Const Denies chills and Denies fever(s) Eyes Denies blurry vision ENT Denies dizziness Card Denies chest pain Resp Denies cough GI Denies abdominal pain and Denies other (denies incontinence or saddle parethesias) Denies urinary incontinence Musc Reports back pain, Denies numbness, Reports stiffness and Denies tingling Skin/Breast Denies rash Neuro Denies dizziness, Denies numbness, Denies tingling and Denies paresthesias Physical Exam Vital Signs: Last Vital Signs Temp 98.1 F 07/27/24 10:57 Pulse 70 07/27/24 10:57 BP 114/68 07/27/24 10:57 Pulse Ox 99 07/27/24 10:57 Oxygen Delivery Method Room Air 07/27/24 10:57 BMI result Body Mass Index 41.8 General: Non-toxic, NAD. Speaking full sentences. Skin: Warm dry throughout Eye: EOMI Respiratory: CTA bilaterally. No wheezes, rales or rhonchi Cardiac: RRR. No murmur. DP pulse intact R foot. MSK: Sitting in chair. Cane next to her to help with ambulation. No midline tenderness to palpation of cervical, thoracic or lumbar spine but + R lumbar paravertebral and sciatic tenderness. Slight ttp of R lateral illiac crest. + extension R leg at knee to 180 degrees with slight pain radiation down hamstring into knee region. Neurology: A/O x 3. CN 2-12 grossly intact. No aphasia or facial droop. Gait stable with cane. neuro sensation intact RLE. Psych: Good mood and affect Assessment & Plan Assessment & Plan (1) Back pain: Code(s): M54.9 - Dorsalgia, unspecified Qualifiers: Back pain laterality: right Back pain location: low back pain Chronicity: acute Sciatica presence: unspecified whether sciatica present Qualified Code(s): M54.50 - Low back pain, unspecified Plan: Patient seen and evaluated. Xray lumbar:i viewed chronic changes with disc space narrowing consistent with where pain is. No compression fx seen xray R hip: i saw no fx Official reads pending by radiology Discussed results with pt and she understands Patient gave verbal understanding and had no additional questions or concerns at time of discharge All questions answered Orders: Orders XR hip RT min 2V Today M54.9 - Dorsalgia, unspecified XR lumbar spine 2-3V Today M54.9 - Dorsalgia, unspecified Coding Level of Care Code Est Pt Level 3 (83103) Diagnoses Acute right-sided low back pain, unspecified whether sciatica present M54.50 Back pain laterality: right Back pain location: low back pain Chronicity: acute Sciatica presence: unspecified whether sciatica present
== END 2024-07-27 11:41 | disposition home or self-care (01) ==
PROVIDERS: PCP Physician Assistant; Visit Provider Physician Assistant
DX: M54.50 Low back pain, unspecified (principal)

== ENCOUNTER → 2024-07-27 09:40 | Outpatient (BNVA) | payer OTHER, SELFPAY | PROVIDERS: PCP Physician Assistant ==

== ENCOUNTER 2024-07-27 09:41 | Outpatient (REF) | payer OTHER, SELFPAY ==
--- NOTE | ~2024-07-27 | XR_ITS ---
EXAMINATION: XR HIP, RIGHT CLINICAL INFORMATION: Right hip pain. COMPARISON: None available. TECHNIQUE: Two views of the right hip. FINDINGS: No fracture. Alignment is anatomic. Hip joint space is maintained. Soft tissues are unremarkable. XR/XR hip RT min 2V IMPRESSION: No significant abnormality seen. Electronically signed by: Papa Brown MD 07/28/2024 05:49 AM EDT
--- NOTE | ~2024-07-27 | XR_ITS ---
EXAMINATION: XR LUMBOSACRAL SPINE CLINICAL INFORMATION: Dorsalgia COMPARISON: Lumbar spine radiograph from 12/22/2021, MRI lumbar spine from 05/24/2023 TECHNIQUE: Three views of the lumbosacral spine. FINDINGS: 5 nonrib-bearing lumbar-type vertebral bodies. No acute visible fracture or dislocation. Slight grade 1 retrolisthesis of L3 on L4 and to lesser degree L4 on L5. Very slight grade 1 anterolisthesis of L5 and S1. Multilevel degenerative changes disc space narrowing, arthrosis, osteophyte formation, and facet arthropathy. Vertebral body heights and disc spaces are maintained. Posterior elements are intact. Paraspinal soft tissues unremarkable. Fecal loading of the visualized colon. XR/XR lumbar spine 2-3V IMPRESSION: 1. No acute visible fracture or dislocation. 2. Slight grade 1 retrolisthesis of L3 on L4 and to lesser degree L4 on L5. 3. Very slight grade 1 anterolisthesis of L5 and S1. 4. Multilevel degenerative changes. Electronically signed by: Adeel Ivan MD 07/28/2024 10:39 AM EDT
[2024-07-27 11:50] LABS: Hematocrit 41.7 % (37.0-47.0); Hemoglobin 13.4 g/dl (12.0-16.0); Mean Corpuscular HGB Conc 32.1 g/dl (31.0-35.0); Mean Corpuscular Hemoglobin 29.1 pg (27.0-33.0); Mean Corpuscular Volume 90.7 fL (80.0-98.0); Mean Platelet Volume 8.7 fL (9.4-12.3); Platelet Count 341 X10*3/uL (160-400); Red Cell Distribution Width 14.5 % (11.0-16.0); White Blood Count 15.1 X10*3/uL (4.8-10.8)
[2024-07-27 12:19] LABS: Alanine Aminotransferase 14 U/L (0-31); Albumin Level 4.3 g/dL (3.5-5.0); Alkaline Phosphatase 88 U/L (39-117); Anion Gap 12 (12-20); Aspartate Amino Transferase 11 U/L (5-31); Bilirubin Total 0.4 mg/dL (0.0-1.0); Blood Urea Nitrogen 20 mg/dL (9-16); Calcium 9.3 mg/dL (8.4-10.2); Carbon Dioxide 25 mmol/L (22-29); Chloride 108 mmol/L (96-108); Cholesterol 174 mg/dL (<200); Estimated Glomerular Filt Rate > 60; Glucose Fasting 154 mg/dL (60-99); HDL Cholesterol 38 mg/dL (>40); LDL Cholesterol Calculated 90 mg/dL (<100); Potassium 3.8 mmol/L (3.3-5.1); Sodium 141 mmol/L (135-145); Total Protein 7.1 g/dL (6.5-8.0); Triglycerides 231 mg/dL (<150)
== END 2024-07-27 09:42 | disposition home or self-care (01) ==
LOC: HO.HMGCX 09:41
PROVIDERS: PCP Physician Assistant; Visit Provider Physician Assistant
DX: M54.50 Low back pain, unspecified (principal); E78.5 Hyperlipidemia, unspecified; I10 Essential (primary) hypertension; M54.9 Dorsalgia, unspecified
CPT/HCPCS: 36415; 72100; 73502; 80053; 80061; 85027; 99212

== ENCOUNTER 2024-10-10 09:54 | Outpatient (REF) | payer OTHER, SELFPAY ==
[2024-10-10 13:15] LABS: Hematocrit 36.7 % (37.0-47.0); Hemoglobin 11.4 g/dl (12.0-16.0); Mean Corpuscular HGB Conc 31.1 g/dl (31.0-35.0); Mean Corpuscular Hemoglobin 28.9 pg (27.0-33.0); Mean Corpuscular Volume 92.9 fL (80.0-98.0); Mean Platelet Volume 9.3 fL (9.4-12.3); Platelet Count 300 X10*3/uL (160-400); Red Blood Count 3.95 X10*6/uL (4.20-5.50); Red Cell Distribution Width 14.7 % (11.0-16.0)
[2024-10-10 13:22] LABS: Alanine Aminotransferase 21 U/L (0-31); Albumin Level 3.6 g/dL (3.5-5.0); Alkaline Phosphatase 84 U/L (39-117); Anion Gap 8 (12-20); Aspartate Amino Transferase 20 U/L (5-31); Bilirubin Total 0.2 mg/dL (0.0-1.0); Blood Urea Nitrogen 13 mg/dL (9-16); Calcium 8.2 mg/dL (8.4-10.2); Carbon Dioxide 22 mmol/L (22-29); Chloride 114 mmol/L (96-108); Estimated Glomerular Filt Rate > 60; Glucose Fasting 78 mg/dL (60-99); Potassium 4.2 mmol/L (3.3-5.1); Sodium 140 mmol/L (135-145); Total Protein 6.2 g/dL (6.5-8.0)
[2024-10-10 13:23] LABS: Estimated Average Glucose 157 mg/dL; Hemoglobin A1C 157.3492 umol/L; Hemoglobin A1c % 7.1 % (<6.0); Total Hemoglobin (HGBA1C) 2901.1169 umol/L
== END 2024-10-10 09:55 | disposition home or self-care (01) ==
LOC: HO.HMGCLDS 09:54
PROVIDERS: PCP Physician Assistant; Visit Provider Physician Assistant
DX: E11.65 Type 2 diabetes mellitus with hyperglycemia (principal); Z79.4 Long term (current) use of insulin
CPT/HCPCS: 36415; 80053; 83036; 85027

== ENCOUNTER 2024-12-05 14:39 | Outpatient (AMB) | payer OTHER, SELFPAY ==
[2024-12-05 15:09] VITALS: BP 126/82; PULSE 101; TEMP 36.2; O2SAT 95; BMI 42.1
--- NOTE | 2024-12-05 15:09 | MHC.PC.OV ---
Vital Signs 12/05/24 15:09 Height 5 ft 1 in Weight 223 lb BMI 42.1 BP 126/82 Blood Pressure Location Lt brachial Position Sitting Pulse 101 H Pulse Source Pulse Oximeter Temp 97.1 F Temp Source Temporal Artery Scan Pulse Oximetry (%) 95 Oxygen Delivery Method Room Air Intake Visit Reasons: f/u DMII- due for breast cancer screening Clinic Office Manager Required: No Accompanied by: Grand Child Allergies baclofen [BACLOFEN] Allergy (Intermediate, Verified 12/05/24 15:26) memory loss/balance issues lisinopril Adverse Reaction (Intermediate, Verified 12/05/24 15:26) ? increased creatinine metformin Adverse Reaction (Intermediate, Verified 12/05/24 15:26) bad after taste Medication List - Last Reconciled 12/05/24 by Collin Arteaga PA-C blood sugar diagnostic (FreeStyle Lite Strips) 4x daily blood sugar diagnostic As directed blood-glucose meter (FreeStyle Lite Meter kit) As directed fluoxetine 60 mg (3 x 20 mg) PO DAILY 30 days insulin aspart U-100 (Novolog FlexPen U-100 Insulin aspart) See Protocol Up to a total daily dose of 30 units via sliding scale subcut 4 times a day before meal/bed; 30 days insulin glargine (Lantus Solostar U-100 Insulin) 40 units (0.4 mL) subcut QPM 30 days lancets (FreeStyle Lancets) 4x daily pen needle, diabetic (Unifine Pentips Plus) USE 5 TIMES A DAY pregabalin 300 mg PO BID 90 days semaglutide (Ozempic) 1 mg (0.75 mL) subcut QWEEK 4 weeks sumatriptan succinate take 1 tab at onset of headache; if no relief, may repeat 1 tab after at least 2 hrs; max = 2 tabs/24 hrs PO 30 days tramadol 50 mg PO BID PRN 7 days Tobacco use date assessed: 12/05/24 Dental Screening Dental Screen Date: 12/05/24 Did you have a dental visit in the last 12 months?: Yes Did you have a dental problem in the last 6 months where you did not have access to dental care?: No Was dental information given to patient?: Patient has dentist HPI f/u DMII- due for breast cancer screening HPI Details Patient is a 54-year-old female here today for follow-up visit. Has a past medical history significant for uncontrolled type 2 diabetes, lumbar disc disease with failed back syndrome, hypertension, asthma and obesity. Recently had left thumb surgery due to dog bite . She reports getting hardware placement/pins in her left thumb. She has delayed healing due to her uncontrolled type 2 diabetes and was complicated by an infection. Will continue to follow hand and wrist surgeon at [facility]. She is due for another surgery to replace a bone in her thumb though needed better glycemic control which she has achieved by getting her A1c down to 7.1. CHRONIC MEDICAL CONDITIONS---> .. Type 2 diabetes: Type 2 diabetes has been suboptimally controlled for quite awhile now. Most recent A1c at 7.1 from 9.1. We have increased her Ozempic to 1 mg and up titrated her short-acting and long-acting insulin doses which has been helpful for her. She does admit to dietary indiscretion. At last visit we increased her Lantus and tightened up her short-acting insulin scale. She has not been able to tolerate metformin. .. Lumbar disc disease: Was seeing pain management in the past and was on chronic pain medication though has been discharged from practice. Continues to manage her pain with Lyrica and NSAID PFS Medical History Asthma Failed back syndrome, cervical Failed back syndrome, lumbar Vitamin D deficiency HLD (hyperlipidemia) HTN (hypertension) Back pain with history of spinal surgery Spinal stenosis Degenerative disorder of bone Diabetes mellitus, type 2 Sleep apnea Arthritis Surgical History S/P excision of lipoma Hx of eye surgery History of microdiscectomy History of umbilical hernia repair History of arthroscopy of right knee History of nasal surgery History of tonsillectomy History of section History of cataract surgery History of laminectomy Hx laparoscopic cholecystectomy Family History Father Substance use disorder Lung cancer Mother Substance use disorder Maternal Grandmother Colon cancer Sister Diabetes Son Malabsorption Asthma Tracheomalacia Other Mental health disorder Social History Household Members: Children Household Members Other:: lives w/ 2 kids next to sister. Housing: House Housing Other:: duplex Do you presently have visiting nurse or other home services: No Alcohol intake: current Alcohol intake frequency: holidays/special occasions only Comment: PATIENT SLEEPING Patient Tobacco Use Status: Never used Tobacco e-Cigarette/Vaping Use: Never Used Second Hand Smoke Exposure: No service: No Current occupational status: disabled Cognitive needs: No Hearing needs: No Vision needs: Yes Questionnaire PHQ-9 Over the last 2 weeks, how often have you been bothered by any of the following problems? 1. Little interest or pleasure in doing things: more than half the days 2. Feeling down, depressed, or hopeless: nearly every day 3. Trouble falling or staying asleep, or sleeping too much: not at all 4. Feeling tired or having little energy: more than half the days 5. Poor appetite or overeating: more than half the days 6. Feeling bad about yourself - or that you are a failure or have let yourself or your family down: not at all 7. Trouble concentrating on things, such as reading the newspaper or watching television: not at all 8. Moving or speaking so slowly that other people could have noticed. Or the opposite - being so fidgety or restless that you have been moving around a lot more than usual: not at all 9. Thoughts that you would be better off or of hurting yourself in some way: not at all Total score: 9 Depression Screening Interpretation: Positive Depression Screening Follow-up: Existing condition Depression Screening Done: Yes 67726 - PHQ-9 Billing: Yes Source: Developed by Drs. Steven Cuevas, Cheri Wood, Ferdinand Villasenor and colleagues, with an educational rios from [employer]. Thrive Questionnaire Date Thrive assessed: 12/05/24 I am a: Patient What is your living situation today?: I have a steady place to live Within the past 12 months, did the food you bought not last and you didn't have the money to get more?: Never true Within the past 12 months, did you worry whether your food would run out before you got money to buy more?: Never true Do you have trouble paying for medicines?: No Do you have trouble getting transportation to medical appointments?: No Do you have trouble paying your heating and electricity bill?: No Do you have trouble taking care of your child, family member or friend?: No Do you have trouble with day-to-day activities such as bathing, preparing meals, shopping, managing finances, etc.?: No Are you currently unemployed and looking for a job?: No Are you interested in more education?: No Please select the resources that you would like help with: None Currently or been in a relationship where the following occur: No concerns reported THRIVE Score: 0 AUDIT C Alcohol Use Questionnaire (AUDIT-C) 1. How often do you have a drink containing alcohol?: Never 3. How often do you have six or more drinks on one occasion?: Never Total Score: 0 SANJUANA-7 AMB Questionnaire SANJUANA-7 Date SANJUANA - 7 assessed: 12/05/24 Feeling nervous, anxious, or on edge: 0 = Not at all Not being able to stop or control worryin = Not at all Worrying too much about different things: 0 = Not at all Trouble relaxin = Not at all Being so restless that it is hard to sit still: 0 = Not at all Becoming easily annoyed or irritable: 3 = Nearly every day Feeling afraid as if something awful might happen: 0 = Not at all Total SANJUANA-7 score (0-4 normal; 5-9 mild; 10-14 moderate; 15-21 severe): 3 Source: Developed by Drs. Steven Cuevas, Cheri Wood, Ferdinand Villasenor and colleagues, with an educational rios from [employer]. SANJUANA-7 Assessment Billing SANJUANA-7 Assessment Tool: SANJUANA-7 Assessment 17628 Review of Systems Const Denies headache(s) Eyes Denies loss of vision ENT Denies vertigo, Denies dizziness, Denies headache(s) and Denies sore throat Card Denies chest pain, Denies leg edema and Denies lightheadedness Resp Denies cough, Denies hemoptysis and Denies wheezing GI Denies abdominal pain, Denies melena, Denies constipation, Denies diarrhea and Denies vomiting Denies urinary frequency, Denies dysuria and Denies urinary urgency Musc Denies arthralgias, Denies joint swelling, Denies numbness and Denies tingling Neuro Denies Abnormal speech present, Denies behavioral changes, Denies vertigo, Denies dizziness, Denies headache(s), Denies loss of vision, Denies memory loss, Denies numbness and Denies tingling Psych Denies anxiety, Denies behavioral changes, Denies depression, Denies memory loss and Denies panic attacks Frank/Lymph Denies easy bleeding and Denies easy bruising Aller/Immun Denies wheezing Physical exam (Primary Care) Vital Signs: Last Vital Signs Temp 97.1 F 12/05/24 15:09 Pulse 101 H 12/05/24 15:09 BP 126/82 12/05/24 15:09 Pulse Ox 95 12/05/24 15:09 Oxygen Delivery Method Room Air 12/05/24 15:09 BMI result Body Mass Index 42.1 Tobacco/Smoking Status: Tobacco use Status Tobacco use date assessed 12/05/24 12/05/24 15:19 Patient Tobacco Use Status Never used Tobacco 12/05/24 15:15 e-Cigarette/Vaping Use Never Used 12/05/24 15:15 PHQ-9: PHQ-9 Score PHQ-9: Total score 9 12/05/24 15:44 Depression Screening Interpretation: Positive Depression Screening Follow-up: Existing condition Thrive Assessment: Date of Thrive Assessment Date Thrive assessed 12/05/24 12/05/24 15:15 Currently or been in a relationship where the following occur: No concerns reported Const General: healthy appearing, no acute distress, alert and awake Nutritional Appearance: well nourished Orientation/consciousness: oriented to person, oriented to place and oriented to time HENMT Ears: TM's normal bilaterally General nose exam: Normal nasal mucous membranes and turbinates present Eyes Conjunctivae: conjunctivae normal Sclerae: sclerae normal Pupils: Equal, round and reactive pupils present Neck Neck: Yes no lymphadenopathy and Yes no JVD Thyroid: Thyroid normal Carotids: no bruits Resp Effort & Inspection: normal respiratory effort and not tachypneic Auscultation: no crackles, no rales, no rhonchi and no wheezes Cardio Rate: regular rate Rhythm: regular rhythm Heart sounds: no murmurs and normal S1 and S2 GI Palpation (GI): Soft to palpation, nontender, no hepatomegaly and no splenomegaly Auscultation: normal bowel sounds Skin General skin exam: no rashes or lesions noted and dry skin Neuro General: oriented to person, oriented to place and oriented to time Cranial nerves: Yes Equal, round and reactive pupils present Speech: No Abnormal speech present Gait exam (Neuro): Normal gait present Motor exam (neuro): no tremor noted Extrem Right upper extremity: full ROM Left upper extremity: full ROM Right lower extremity: full ROM; no edema Left lower extremity: full ROM; no edema Psych Mental Status: mental status grossly normal Speech and movement: Normal speech and movement present Affect: normal affect Attitude: cooperative Thought process: Normal thought process present Coding Level of Care Code Est Pt Level 4 (47644) Diagnoses Type 2 diabetes mellitus with hyperglycemia, with long-term current use of insulin E11.65; Z79.4 Diabetes mellitus complication status: with hyperglycemia Diabetes mellitus buttermaker continuous churn insulin use: with buttermaker continuous churn use Closed nondisplaced fracture of proximal phalanx of left thumb with delayed healing, subsequent encounter S62.515G Encounter type: subsequent encounter Fracture alignment: nondisplaced Fracture healing: with delayed healing Phalanx: proximal MDD (major depressive disorder), recurrent episode, mild F33.0 Hyperlipidemia, unspecified hyperlipidemia type E78.5 Hyperlipidemia type: unspecified Hypertension, unspecified type I10 Hypertension type: unspecified Class 3 obesity E66.813 Additional Codes SANJUANA-7 Assessment Billing - SANJUANA-7 Assessment Tool: SANJUANA-7 Assessment [id number] ([id number]) PHQ-9 - 96380 - PHQ-9 Billing: Yes ([id number]) Assessment & Plan Assessment & Plan (1) Diabetes mellitus, type 2: Code(s): E11.9 - Type 2 diabetes mellitus without complications Category: Medical Qualifiers: Diabetes mellitus complication status: with hyperglycemia Diabetes mellitus buttermaker continuous churn insulin use: with nursing home use Qualified Code(s): E11.65 - Type 2 diabetes mellitus with hyperglycemia; Z79.4 - halfway (current) use of insulin Plan: Patient's type 2 diabetes much better controlled up titrating insulin the levels and Ozempic 1 mg weekly. Most recent A1c is 7.1 from above 9. She is happy about this. She is needing glycemic control to get her left thumb surgery done without high-risk for postoperative infection. (2) Fracture of thumb, left, closed: Code(s): S62.502A - Fracture of unspecified phalanx of left thumb, initial encounter for closed fracture Category: Medical Qualifiers: Encounter type: subsequent encounter Fracture alignment: nondisplaced Fracture healing: with delayed healing Phalanx: proximal Qualified Code(s): S62.515G - Nondisplaced fracture of proximal phalanx of left thumb, subsequent encounter for fracture with delayed healing Plan: Patient continues to follow hand surgeon in [place]. She has had multiple surgery on her left hand in his due for repeat surgery for bone transfer needs better glycemic control which she has a achieved by getting her A1c down to 7.1 from 9 she continues with the use of tramadol for her pain management.. (3) MDD (major depressive disorder), recurrent episode, mild: Code(s): F33.0 - Major depressive disorder, recurrent, mild Category: Medical Plan: Patient's PHQ-9 score positive for depression which has been existing condition for her. Patient continues on SSRI therapy with good effect. (4) HLD (hyperlipidemia): Code(s): E78.5 - Hyperlipidemia, unspecified Category: Medical Qualifiers: Hyperlipidemia type: unspecified Qualified Code(s): E78.5 - Hyperlipidemia, unspecified Plan: Patient's most recent lipid panel showing good control over total cholesterol and LDL. Triglycerides remains slightly elevated. Will continue working on dietary in lifestyle management. (5) HTN (hypertension): Code(s): I10 - Essential (primary) hypertension Category: Medical Qualifiers: Hypertension type: unspecified Qualified Code(s): I10 - Essential (primary) hypertension Plan: Patient's blood pressure acceptable today in office. W patient stable to control her blood pressure without medication at this time (6) Class 3 obesity: Code(s): E66.813 - Obesity, class 3 Category: Medical Plan: Patient does understand her BMI is over 40 will work on being more physically active and adapting to better eating habits to reduce her weight. Unfortunately GLP 1 this have not help her lose weight. Medications: Changed From insulin glargine (Lantus Solostar U-100 Insulin) 40 units (0.4 mL) subcut QPM 30 days 12 mL 6RF E11.65 - Type 2 diabetes mellitus with hyperglycemia, Z79.4 - halfway (current) use of insulin To insulin glargine (Lantus Solostar U-100 Insulin) 45 units (0.45 mL) subcut QPM 13.5 mL 6RF 30 days E11.65 - Type 2 diabetes mellitus with hyperglycemia, Z79.4 - halfway (current) use of insulin Refilled fluoxetine 60 mg (3 x 20 mg) PO DAILY 90 caps 2RF 30 days F41.9 - Anxiety disorder, unspecified lancets (FreeStyle Lancets) 4x daily 100 ea 11RF E11.65 - Type 2 diabetes mellitus with hyperglycemia, Z79.4 - terminal superintendent (current) use of insulin semaglutide (Ozempic) 1 mg (0.75 mL) subcut QWEEK 3 mL 3RF 4 weeks E11.65 - Type 2 diabetes mellitus with hyperglycemia, Z79.4 - terminal superintendent (current) use of insulin sumatriptan succinate take 1 tab at onset of headache; if no relief, may repeat 1 tab after at least 2 hrs; max = 2 tabs/24 hrs PO 12 tabs 3RF 30 days G43.009 - Migraine without aura, not intractable, without status migrainosus Patient Instructions: Goal: A1c to be below 7.0 Barriers: Adherence to physical activity and healthy eating habits
--- OUTSIDE RECORDS SUMMARY | 2024-12-05 18:00 | XMS_ITS | Clinical Summary ---
Author Organization [employer] Address [address] [place] [address] [address] [place] [address] Care Team Providers Care Data Entry Associate Name Role Phone Unavailable Primary Care Provider Unavailabl e Allergies No known active allergies Medications amoxicillin (Amoxil) 500 MG tabletIndication s:Dental infection Take one tablet (500 mg) three times a day for 7 days 21 tablet 10/07/2022 Active Trulicity 1.5 MG/0.5ML solution pen-injector Inject 1.5 mg under the skin 1 (one) time per week. 11/03/2021 Active pregabalin (Lyrica) 300 MG capsule Take 300 mg by mouth 2 times daily. 04/26/2022 Active Social History Tobacco Use Types Packs/Day Years Used Date Smoking Tobacco: Never Tobacco Cessation:Counseling Given: Not Answered Comments Unknown Sex and Gender Information Value Date Recorded Sex Assigned at Female 08/08/2022 10:30 AM EDT Legal Sex Female 10:30 AM EDT Gender Identity Female 08/08/2022 10:30 AM EDT Sexual Orientation Straight 08/08/2022 10 :30 AM EDT Plan of Treatment Health Maintenance Due Date Last Done Comments CT Colonography 1970 Colonoscopy 1970 Colorectal Cancer Screening 1970 Dental Oral Exam 1970 Dental Prophylaxis 1970 Dental X-Ray: Full Mouth 1970 Depression Screening 1970 FIT DNA/Cologuard 1970 FIT 1970 FOBT 1970 HIV Screening 1970 Lipid Panel 1970 SDOH Screening 1970 Sigmoidoscopy 1970 Alcohol/Substance Use Screening 1982 Tobacco Screening 1982 Hepatitis C Screening 1988 Hepatitis B Vaccines (1 of 3 - 19+ 3-dose series) 1989 Pap Smear 1991 Cervical Cancer Screening 2000 HPV/Cotest 2000 Mammogram 2010 Pneumococcal Vaccine: 50+ Years (2 of 2 - PCV) 2020 07/06/2016 Zoster Vaccines (1 of 2) 2020 Dental X-Ray: Bitewings 10/08/2023 10/07/2022 COVID-19 Vaccine (3 - season) 2024 03/02/2021, 02/02/2021 Influenza Vaccine (#1) 2024 , 08/24/2020, 09/02/2019, Additional history exists DTaP/Tdap/Td Vaccines (2 - Td or Tdap) 02/06/2026 02/07/2016, 12/13/2003 RSV Patients and Patients Aged 60 years or older (1 - 1-dose 75+ series) 2045 Pneumococcal Vaccine: Pediatrics (0 to 5 Years) and At-Risk Patients (6 to 49) Years) Aged Out 07/06/2016 No longer eligible based on patient's age to complete this topic HIB Vaccines Aged Out No longer eligi ble based on patient's age to complete this topic HPV Vaccines Aged Out No longer eligi ble based on patient's age to complete this topic Hepatitis A Vaccines Aged Out No long er eligible based on patient's age to complete this topic IPV Vaccines Aged Out No longer eligi ble based on patient's age to complete this topic Meningococcal Vaccine Aged Out No fuad khadijah eligible based on patient's age to complete this topic RSV under 20 months Aged Out No longe r eligible based on patient's age to complete this topic Rotavirus Vaccines Aged Out No longer eligible based on patient's age to complete this topic Procedures Procedure Name Priority Date/Time Associated Diagnosis Comments BITEWING - SINGLE RADIOGRAPHIC IMAGE Routine 10/07/2022 11:00 AM EST from Last 3 Months or Most Recently Relevant to Health Maintenance [place] [address] [address] [place] [address]
== END 2024-12-05 15:41 | disposition home or self-care (01) ==
PROVIDERS: PCP Physician Assistant; Visit Provider Physician Assistant
DX: E11.65 Type 2 diabetes mellitus with hyperglycemia (principal); Z79.4 Long term (current) use of insulin; F33.0 Major depressive disorder, recurrent, mild; Z68.41 Body mass index [BMI] 40.0-44.9, adult; E66.813 Obesity, class 3; S62.51 Fracture of proximal phalanx of thumb; E78.5 Hyperlipidemia, unspecified; I10 Essential (primary) hypertension

== ENCOUNTER → 2024-12-05 14:39 | Outpatient (BNVA) | payer OTHER, SELFPAY | PROVIDERS: PCP Physician Assistant; Visit Provider Physician Assistant | DX: E11.65 Type 2 diabetes mellitus with hyperglycemia (principal); Z79.4 Long term (current) use of insulin; S62.51 Fracture of proximal phalanx of thumb; F33.0 Major depressive disorder, recurrent, mild; E78.5 Hyperlipidemia, unspecified; I10 Essential (primary) hypertension; E66.813 Obesity, class 3; Z68.41 Body mass index [BMI] 40.0-44.9, adult; Z71.3 Dietary counseling and surveillance | CPT/HCPCS: 96127; 99212 ==

== ENCOUNTER 2025-07-01 07:45 | Outpatient (AMB) | payer OTHER, SELFPAY ==
--- OUTSIDE RECORDS SUMMARY | 2025-07-01 07:47 | XMS_ITS | Clinical Summary ---
Author Organization [employer] Address [address] [place] [address] [address] [place] [address] Care Team Providers Care Finance Associate Name Role Phone Unavailable Primary Care [...] Panel 1970 SDOH Screening 1970 Sigmoidoscopy 1970 Disability Screening 1970 Alcohol/Substance Use Screening 1982 Tobacco Screening 1982 Hepatitis C Screening 1988 Hepatitis B Vaccines (1 of 3 - 19+ 3-dose series) 1989 Pap Smear 1991 Cervical Cancer Screening 2000 HPV/Cotest 2000 Mammogram 2010 Pneumococcal Vaccine: 50+ Years (2 of 2 - PCV) 2020 07/06/2016 Zoster Vaccines (1 of 2) 2020 Dental X-Ray: Bitewings 10/08/2023 10/07/2022 COVID-19 Vaccine (3 - 2024- season) 2025 03/02/2021, 02/02/2021 Influenza Vaccine (#1) 2025 , 08/24/2020, 09/02/2019, Additional history exists DTaP/Tdap/Td Vaccines (2 - Td or Tdap) 02/06/2026 02/07/2016, 12/13/2003 RSV Patients and Patients Aged 60 years or older (1 - 1-dose 75+ series) 2045 HIB Vaccines Aged Out No longer eligi [...] patient's age to complete this topic Meningococcal B Vaccine Aged Out No l onger eligible based on patient's age to complete [...]
[2025-07-01 07:52] VITALS: BP 132/80; PULSE 65; O2SAT 99; BMI 44.6
--- NOTE | 2025-07-01 07:52 | MHC.PC.OV ---
Vital Signs 07/01/25 07:52 Height 5 ft 1 in Weight 236 lb BMI 44.6 BP 132/80 Blood Pressure Location Lt brachial Position Sitting Pulse 65 Pulse Source Pulse Oximeter Pulse Oximetry (%) 99 Oxygen Delivery Method Room Air Intake Visit Reasons: PE; needs repeat A1C Allergies baclofen (BACLOFEN) Allergy (Intermediate, Verified 07/01/25 08:09) memory loss/balance issues lisinopril Adverse Reaction (Intermediate, Verified 07/01/25 08:09) ? increased creatinine metformin Adverse Reaction (Intermediate, Verified 07/01/25 08:09) bad after taste Medication List - Last Reconciled 07/01/25 by Collin Arteaga PA-C blood sugar diagnostic As directed blood sugar diagnostic (FreeStyle Lite Strips) 4x daily blood-glucose meter (FreeStyle Lite Meter kit) As directed fluoxetine 60 mg (3 x 20 mg) PO DAILY 30 days insulin aspart U-100 (Novolog FlexPen U-100 Insulin aspart) See Protocol Up to a total daily dose of 30 units via sliding scale subcut 4 times a day before meal/bed; 30 days insulin glargine (Lantus Solostar U-100 Insulin) 45 units (0.45 mL) subcut QPM 30 days lancets (FreeStyle Lancets) 4x daily pen needle, diabetic (Unifine Pentips Plus) USE 5 TIMES A DAY pregabalin 300 mg PO BID 90 days semaglutide (Ozempic) 1 mg (0.75 mL) subcut QWEEK 4 weeks sumatriptan succinate take 1 tab at onset of headache; if no relief, may repeat 1 tab after at least 2 hrs; max = 2 tabs/24 hrs PO 30 days Tobacco use date assessed: 07/01/25 Dental Screening Dental Screen Date: 07/01/25 Did you have a dental visit in the last 12 months?: Yes Did you have a dental problem in the last 6 months where you did not have access to dental care?: No Was dental information given to patient?: Patient has dentist HPI PE; needs repeat A1C HPI Details Patient is a 54-year-old female here today for a routine annual physical Has a past medical history significant for uncontrolled type 2 diabetes, lumbar disc disease with failed back syndrome, obstructive sleep apnea, hypertension, asthma and obesity. --> patient recently seen at the local ER for acute the thumb swelling and redness. Has upcoming surgery on her left thumb due to the recurrent infection. Left thumb fracture/ traumatic: As above.. She reports getting hardware placement/pins in her left thumb. She has delayed healing due to her uncontrolled type 2 diabetes and was complicated by an infection. Will continue to follow hand and wrist surgeon at [facility]. .. Knee osteoarthritis: The patient has a history of osteoarthritis, with significant knee pain and swelling noted. She was advised for a double knee replacement but has not undergone the procedure due to age restrictions and insurance limitations. The patient experiences difficulty walking and frequent falls due to knee instability. . Obstructive sleep apnea: The patient has a history of sleep apnea, but her CPAP machine was recalled, and she has not undergone a recent sleep study. She experiences symptoms that may be exacerbated by sleep apnea, such as ear inflammation. .. Type 2 diabetes: Type 2 diabetes has been suboptimally controlled for quite awhile now. Most recent A1c at 8.0 Will increase her Ozempic dose to max 2 mg weekly for better glycemic control. She has not been able to tolerate metformin. .. Lumbar disc disease: Was seeing pain management in the past and was on chronic pain medication though has been discharged from practice. Continues to manage her pain with Lyrica and NSAID. 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 mammogram: needs mammogram vaccines: UTD with Tdap, NEed PCV vaccine (declines),, UTD with COVID [facility] Medical History Asthma Failed back syndrome, cervical Failed back syndrome, lumbar Vitamin D deficiency HLD (hyperlipidemia) HTN (hypertension) Back pain with history of spinal surgery Spinal stenosis Degenerative disorder of bone Diabetes mellitus, type 2 Sleep apnea Arthritis Surgical History S/P excision of lipoma Hx of eye surgery History of microdiscectomy History of umbilical hernia repair History of arthroscopy of right knee History of nasal surgery History of tonsillectomy History of section History of cataract surgery History of laminectomy Hx laparoscopic cholecystectomy Family History Father Substance use disorder Lung cancer Mother Substance use disorder Maternal Grandmother Colon cancer Sister Diabetes Son Malabsorption Asthma Tracheomalacia Other Mental health disorder Social History (Updated 07/01/25 @ 08:13 by Collin Arteaga PA-C) Household Members: Children Household Members Other:: lives w/ 2 kids next to sister. Housing: House Housing Other:: duplex Do you presently have visiting nurse or other home services: No Alcohol intake: former Comment: PATIENT SLEEPING Patient Tobacco Use Status: Never used Tobacco Tobacco use type: Cigarette e-Cigarette/Vaping Use: Never Used Second Hand Smoke Exposure: No service: No Current occupational status: disabled Cognitive needs: No Hearing needs: No Vision needs: Yes Questionnaire PHQ-9 Over the last 2 weeks, how often have you been bothered by any of the following problems? 1. Little interest or pleasure in doing things: several days 2. Feeling down, depressed, or hopeless: several days 3. Trouble falling or staying asleep, or sleeping too much: several days 4. Feeling tired or having little energy: several days 5. Poor appetite or overeating: several days 6. Feeling bad about yourself - or that you are a failure or have let yourself or your family down: not at all 7. Trouble concentrating on things, such as reading the newspaper or watching television: not at all 8. Moving or speaking so slowly that other people could have noticed. Or the opposite - being so fidgety or restless that you have been moving around a lot more than usual: several days 9. Thoughts that you would be better off or of hurting yourself in some way: not at all Total score: 6 Depression Screening Interpretation: Positive Depression Screening Follow-up: Existing condition Depression Screening Done: Yes 30171 - PHQ-9 Billing: Yes Source: Developed by Drs. Steven Cuevas, Cheri Wood, Ferdinand Villasenor and colleagues, with an educational rios from [email or web address]. Thrive Questionnaire Date Thrive assessed: 12/05/24 I am a: Patient What is your living situation today?: I have a steady place to live Within the past 12 months, did the food you bought not last and you didn't have the money to get more?: Never true Within the past 12 months, did you worry whether your food would run out before you got money to buy more?: Never true Do you have trouble paying for medicines?: No Do you have trouble getting transportation to medical appointments?: No Do you have trouble paying your heating and electricity bill?: No Do you have trouble taking care of your child, family member or friend?: No Do you have trouble with day-to-day activities such as bathing, preparing meals, shopping, managing finances, etc.?: No Are you currently unemployed and looking for a job?: No Are you interested in more education?: No Please select the resources that you would like help with: None Currently or been in a relationship where the following occur: No concerns reported THRIVE Score: 0 AUDIT C Alcohol Use Questionnaire (AUDIT-C) 1. How often do you have a drink containing alcohol?: Never 3. How often do you have six or more drinks on one occasion?: Never Total Score: 0 SANJUANA-7 AMB Questionnaire SANJUANA-7 Date SANJUANA - 7 assessed: 07/01/25 Feeling nervous, anxious, or on edge: 0 = Not at all Not being able to stop or control worryin = Not at all Worrying too much about different things: 0 = Not at all Trouble relaxin = Not at all Being so restless that it is hard to sit still: 0 = Not at all Becoming easily annoyed or irritable: 1 = Several days Feeling afraid as if something awful might happen: 0 = Not at all Total SANJUANA-7 score (0-4 normal; 5-9 mild; 10-14 moderate; 15-21 severe): 1 Source: Developed by Drs. Steven Cuevas, Cheri Wood, Ferdinand Villasenor and colleagues, with an educational rios from [email or web address]. Review of Systems Const Denies body aches, Denies chills, Denies excessive sweating, Denies fatigue, Denies fever(s) and Denies headache(s) Eyes Denies blurry vision ENT Denies dysphagia, Denies vertigo, Denies dizziness, Denies headache(s), Denies hearing loss and Denies tinnitus Card Denies chest pain, Denies chest pain with activity, Denies syncope, Denies irregular heart rhythm and Denies dyspnea Resp Denies chest congestion, Denies cough, Denies hemoptysis, Denies dyspnea and Denies wheezing GI Denies abdominal pain, Denies melena, Denies hematochezia, Denies coffee ground emesis, Denies dysphagia, Denies diarrhea, Denies nausea and Denies vomiting Denies urinary frequency, Denies dysuria, Denies urinary hesitancy and Denies urinary urgency Musc Denies arthralgias, Denies limited range of motion, Denies muscle cramps and Denies muscle weakness Skin/Breast Denies rash and Denies skin ulcer Neuro Denies Abnormal speech present, Denies confusion, Denies vertigo, Denies dizziness, Denies syncope, Denies headache(s), Denies memory loss and Denies seizure-like activity Psych Denies anxiety, Denies confusion, Denies depression, Denies memory loss, Denies panic attacks and Denies paranoia Endo Denies excessive sweating, Denies fatigue, Denies flushing, Denies polydipsia and Denies polyuria Aller/Immun Denies wheezing Physical exam (Primary Care) Vital Signs: Last Vital Signs Pulse 65 07/01/25 07:52 BP 132/80 07/01/25 07:52 Pulse Ox 99 07/01/25 07:52 Oxygen Delivery Method Room Air 07/01/25 07:52 BMI result Body Mass Index 44.6 BMI Assessment/Plan discussion: High BMI High, discussed plan: lifestyle, weight reduction, dietary and physical activity Tobacco/Smoking Status: Tobacco use Status Tobacco use date assessed 07/01/25 07/01/25 07:53 Patient Tobacco Use Status Never used Tobacco 07/01/25 08:13 Tobacco use type Cigarette 07/01/25 08:13 e-Cigarette/Vaping Use Never Used 07/01/25 08:13 PHQ-9: PHQ-9 Score PHQ-9: Total score 6 07/01/25 08:11 Depression Screening Interpretation: Positive Depression Screening Follow-up: Existing condition Thrive Assessment: Date of Thrive Assessment Date Thrive assessed 12/05/24 07/01/25 07:53 Currently or been in a relationship where the following occur: No concerns reported Const General: cooperative, comfortable, no acute distress, alert and awake; No confusion Orientation/consciousness: oriented to person, oriented to place, patient oriented x3 and No confusion HENMT Head: Yes normocephalic Ears: external ears normal and TM's normal bilaterally Face and sinus: No sinus tenderness Mouth: Normal oral and palatal mucosa present and tongue normal Teeth and gingiva: dentition normal and gingiva normal Throat: Yes posterior oropharynx normal, Yes tonsils normal and Yes uvula midline Eyes Conjunctivae: conjunctivae normal Sclerae: sclerae normal Pupils: Equal, round and reactive pupils present EOM: EOMs intact bilaterally Direct Ophthalmoscopy: No no photophobia Neck Neck: Yes no lymphadenopathy, No tender and Yes no JVD Thyroid: Thyroid normal Carotids: no bruits Chest Chest palpation & inspection: no tenderness Resp Effort & Inspection: normal respiratory effort, no audible wheezes, not labored and no stridor Auscultation: no crackles, no rales, no rhonchi and no wheezes Cardio Jugular venous distension: no JVD Rate: regular rate, not bradycardic and not tachycardic Rhythm: regular rhythm Bruits: no carotid bruits Peripheral pulses: Peripheral pulses 2+ throughout GI Inspection: Yes normal to inspection, No abdominal wall ecchymosis and No visible herniation Palpation (GI): Soft to palpation, nontender, no guarding, not rigid and No hepatosplenomegaly present Auscultation: normoactive bowel sounds General: Yes no CVA tenderness Back/Spine/Pelvis Back: no CVA tenderness and No back tenderness Cervical Spine: cervical ROM normal Thoracic/Lumbar Spine: thoracic and lumbar spine normal to inspection, straight leg raise negative bilaterally, No thoraco-lumbar ROM limited and No lumbar spinal tenderness Skin Lesions: no lesions Rashes: no rashes Wounds: no wounds Neuro General: oriented to person, oriented to place, patient oriented x3, CN's II-XI intact bilaterally and No confusion Cranial nerves: Yes Equal, round and reactive pupils present and Yes Normal accommodation reflex present Cognition (Neuro): normal cognition Speech: No Abnormal speech present Gait exam (Neuro): Normal gait present Motor exam (neuro): 5/5 motor strength present throughout Extrem Other: LEFT THUMB: SLIGHTLY ERYTHEMATOUS AND SWOLLEN, UNABLE TO FLEX AT THE D IP Right upper extremity: full ROM; no cyanosis Left upper extremity: full ROM; no cyanosis Right lower extremity: no edema Left lower extremity: no edema Psych Appearance: grossly normal Mental Status: mental status grossly normal Affect: normal affect Attitude: cooperative Thought process: Normal thought process present Results AMB Hemoglobin A1c AMB Hemoglobin A1c 8.0 % Last Edit by Kellee Dyson CMA on 07/01/25 08:14 Coding Level of Care Code Est Pt Prev Care 40-64y(13061) Diagnoses Annual physical exam Z00.00 Non-seasonal allergic rhinitis due to other allergic trigger J30.89 Allergic rhinitis trigger: other Allergic rhinitis seasonality: non-seasonal Type 2 diabetes mellitus with hyperglycemia, with long-term current use of insulin E11.65; Z79.4 Diabetes mellitus penitentiary insulin use: with penitentiary use Diabetes mellitus complication status: with hyperglycemia RU (obstructive sleep apnea) G47.33 Closed nondisplaced fracture of proximal phalanx of left thumb with delayed healing, subsequent encounter S62.515G Encounter type: subsequent encounter Phalanx: proximal Fracture alignment: nondisplaced Fracture healing: with delayed healing Hyperlipidemia, unspecified hyperlipidemia type E78.5 Hyperlipidemia type: unspecified Hypertension, unspecified type I10 Hypertension type: unspecified Class 3 obesity E66.813 Colon cancer screening declined Z53.20 Additional Codes PHQ-9 - 60546 - PHQ-9 Billing: Yes ([id number]) Assessment & Plan Assessment & Plan (1) Annual physical exam: Code(s): Z00.00 - Encounter for general adult medical examination without abnormal findings Category: Medical Plan: As per HPI (2) Allergic rhinitis: Code(s): J30.9 - Allergic rhinitis, unspecified Category: Medical Qualifiers: Allergic rhinitis trigger: other Allergic rhinitis seasonality: non-seasonal Qualified Code(s): J30.89 - Other allergic rhinitis Plan: Patient has bilateral fluid buildup in both ears. Has been using Benadryl and nasal sprain though has not been effective. Of note she does have history of obstructive sleep apnea though has not been using a machine in quite some time . She is interested in returning back to using a CPAP machine though will need a new sleep study (3) Diabetes mellitus, type 2: Code(s): E11.9 - Type 2 diabetes mellitus without complications Category: Medical Qualifiers: Diabetes mellitus continuous churn buttermaker insulin use: with penitentiary use Diabetes mellitus complication status: with hyperglycemia Qualified Code(s): E11.65 - Type 2 diabetes mellitus with hyperglycemia; Z79.4 - intermediate (current) use of insulin Plan: Patient's type 2 diabetes suboptimally controlled. Today's A1c at 8.0. Will increase her Ozempic dose to 2 mg weekly. She continues on Lantus and preprandial insulin. Goal A1c is to be below 7.0 (4) RU (obstructive sleep apnea): Code(s): G47.33 - Obstructive sleep apnea (adult) (pediatric) Category: Medical Plan: As above patient interested in repeating a sleep study to start on a new CPAP machine. (5) Fracture of thumb, left, closed: Code(s): S62.502A - Fracture of unspecified phalanx of left thumb, initial encounter for closed fracture Category: Medical Qualifiers: Encounter type: subsequent encounter Phalanx: proximal Fracture alignment: nondisplaced Fracture healing: with delayed healing Qualified Code(s): S62.515G - Nondisplaced fracture of proximal phalanx of left thumb, subsequent encounter for fracture with delayed healing Plan: She is due for surgery tomorrow on her left thumb again as it has become infected again in currently on an antibiotic.. (6) HLD (hyperlipidemia): Code(s): E78.5 - Hyperlipidemia, unspecified Category: Medical Qualifiers: Hyperlipidemia type: unspecified Qualified Code(s): E78.5 - Hyperlipidemia, unspecified Plan: Patient's most recent lipid panel showing good control over total cholesterol and LDL. Triglycerides remains slightly elevated. Will continue working on dietary in lifestyle management. (7) HTN (hypertension): Code(s): I10 - Essential (primary) hypertension Category: Medical Qualifiers: Hypertension type: unspecified Qualified Code(s): I10 - Essential (primary) hypertension Plan: Patient's blood pressure acceptable today in office. W patient stable to control her blood pressure without medication at this time (8) Class 3 obesity: Code(s): E66.813 - Obesity, class 3 Category: Medical Plan: Patient does understand her BMI is over 40 will work on being more physically active and adapting to better eating habits to reduce her weight. Unfortunately GLP 1 this have not help her lose weight. (9) Colon cancer screening declined: Code(s): Z53.20 - Procedure and treatment not carried out because of patient's decision for unspecified reasons Category: Medical Plan: Patient declining any kind of colon cancer screening at this time Orders: Orders AMB Hemoglobin A1c Today Z13.9 - Encounter for screening, unspecified MM screening mammo BI Today Z12.31 - Encounter for screening mammogram for malignant neoplasm of breast Comprehensive [place]. Panel Fast Today E11.65 - Type 2 diabetes mellitus with hyperglycemia Complete Blood Count no Diff Today E11.65 - Type 2 diabetes mellitus with hyperglycemia RT home sleep study Today G47.33 - Obstructive sleep apnea (adult) (pediatric) Lipid Panel Today E78.5 - Hyperlipidemia, unspecified Microalbumin, Random (w Creat) Today I10 - Essential (primary) hypertension Medications: New semaglutide (Ozempic) 2 mg (0.75 mL) subcut QWEEK 3 mL 3RF 4 weeks E11.65 - Type 2 diabetes mellitus with hyperglycemia, Z79.4 - intermediate (current) use of insulin celecoxib (Celebrex) 200 mg PO DAILY 30 caps 1RF 30 days M17.11 - Unilateral primary osteoarthritis, right knee Refilled insulin glargine (Lantus Solostar U-100 Insulin) 45 units (0.45 mL) subcut QPM 13.5 mL 6RF 30 days E11.65 - Type 2 diabetes mellitus with hyperglycemia, Z79.4 - continuous churn buttermaker (current) use of insulin On Hold semaglutide (Ozempic) Hold Comment: Doctor's Order 1 mg (0.75 mL) subcut QWEEK 3 mL 3RF 4 weeks E11.65 - Type 2 diabetes mellitus with hyperglycemia, Z79.4 - intermediate (current) use of insulin
== END 2025-07-01 08:32 | disposition home or self-care (01) ==
LOC: HO.HMCH 07:46
PROVIDERS: PCP Physician Assistant; Visit Provider Physician Assistant
DX: Z00.00 Encounter for general adult medical examination without abnormal findings (principal); J30.89 Other allergic rhinitis; E11.65 Type 2 diabetes mellitus with hyperglycemia; Z79.4 Long term (current) use of insulin; G47.33 Obstructive sleep apnea (adult) (pediatric); S62.51 Fracture of proximal phalanx of thumb; E78.5 Hyperlipidemia, unspecified; I10 Essential (primary) hypertension; E66.813 Obesity, class 3; Z53.20 Procedure and treatment not carried out because of patient's decision for unspecified reasons

== ENCOUNTER → 2025-07-01 07:45 | Outpatient (BNVA) | payer OTHER, SELFPAY | PROVIDERS: PCP Physician Assistant; Visit Provider Physician Assistant | DX: Z00.00 Encounter for general adult medical examination without abnormal findings (principal); G47.33 Obstructive sleep apnea (adult) (pediatric); I10 Essential (primary) hypertension; J45.909 Unspecified asthma, uncomplicated; M17.0 Bilateral primary osteoarthritis of knee; M51.369 Other intervertebral disc degeneration, lumbar region without mention of lumbar back pain or lower extremity pain; E11.65 Type 2 diabetes mellitus with hyperglycemia; S62.51 Fracture of proximal phalanx of thumb; E78.5 Hyperlipidemia, unspecified; E66.813 Obesity, class 3; X58.XXXD Exposure to other specified factors, subsequent encounter; Z68.41 Body mass index [BMI] 40.0-44.9, adult; Z99.89 Dependence on other enabling machines and devices; Z79.4 Long term (current) use of insulin | CPT/HCPCS: 83036; 96127; 99396 ==

== ENCOUNTER 2025-08-16 07:42 | Outpatient (REF) | payer OTHER, SELFPAY ==
--- NOTE | ~2025-08-16 | MM_ITS ---
EXAMINATION: MM SCREENING DIGITAL BREAST TOMOSYNTHESIS, BILATERAL CLINICAL INFORMATION: Screening. Asymptomatic. COMPARISON: Mammography: Comparison is made with available priors TECHNIQUE: Digital breast mammography with tomosynthesis is performed in both the craniocaudal and mediolateral oblique views along with computer-aided detection (CAD). FINDINGS: There are scattered areas of fibroglandular density. There are no significant masses, abnormal calcifications, or other abnormalities. MM/MM tomosynthesis screening BI IMPRESSION: No mammographic evidence of malignancy. ASSESSMENT: BI-RADS Category 1: Negative RECOMMENDATION: Routine annual mammography screening. 1 year F/U This examination should not preclude the clinical evaluation of a suspicious palpable abnormality. This patient's information was entered into a reminder system with a target due date for their next mammogram. Electronically signed by: Ju Davis DO 08/21/2025 01:02 PM MABEL
--- OUTSIDE RECORDS SUMMARY | 2025-08-16 07:44 | XMS_ITS | Clinical Summary ---
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
== END 2025-08-16 07:43 | disposition home or self-care (01) ==
LOC: HO.MAMMO 07:42
PROVIDERS: PCP Physician Assistant; Visit Provider Physician Assistant
DX: E11.65 Type 2 diabetes mellitus with hyperglycemia (principal); Z12.31 Encounter for screening mammogram for malignant neoplasm of breast; Z79.4 Long term (current) use of insulin
CPT/HCPCS: 36415; 77063; 77067; 83036

== ENCOUNTER → 2025-08-16 07:45 | Outpatient (BNV) | payer OTHER, SELFPAY | PROVIDERS: PCP Physician Assistant; Visit Provider Internal Medicine | DX: Z12.31 Encounter for screening mammogram for malignant neoplasm of breast (principal) | CPT/HCPCS: 77063; 77067 ==

== ENCOUNTER 2025-09-20 09:43 | Emergency (ER) | payer OTHER, SELFPAY ==
--- NOTE | ~2025-09-20 | XR_ITS ---
CLINICAL HISTORY: fall 2 view, pelvis and left hip Comparison: CR/SR - XR HIP 2 OR MORE VIEWS RIGHT - 07/27/24 11:24 EDT Findings: No acute fracture or dislocation. Mild degenerative changes are present with osteophyte formation. The soft tissues are unremarkable. IMPRESSION: No acute findings. This document has been electronically signed by: Sammy Bee MD on 09/20/2025 11:49:50
[2025-09-20 09:56] VITALS: BP 163/72; PULSE 78; RESP 16; TEMP 36.5; O2SAT 97; BMI 43.7
--- NOTE | 2025-09-20 10:28 | ED_ITS ---
HPI - Fall General Chief Complaint: Fall Stated Complaint: fall - leg injury Time Seen by Provider: 09/20/25 10:26 Source: patient and RN notes reviewed Mode of arrival: ambulatory Limitations: no limitations History of Present Illness ED Provider: Shani Vega PA-C HPI Narrative: This is a 55-year-old female, with a past medical history of asthma, diabetes, hypertension, hyperlipidemia, type 2 diabetes, who presents emergency department with concerns of left hip pain status post mechanical fall which occurred 4 days ago. Patient states that while she is walking her dog several days ago the dog pulled her forward, and she ultimately fell onto her left side into a snow bank. She states that she felt a clunk in her left hip. She states that she was able to weightbear however over the last several days she has had increased soreness, and has had difficulties with ambulation at home. She denies hitting her head or LOC. She is not on anticoagulation. She has been taking ibuprofen for her symptoms which has provided her with minimal relief. MD complaint: fall Onset (ago): day(s) Fall from: standing Fall witnessed: no Place fall occurred: street Loss of consciousness: none Prolonged down time: no Symptoms prior to fall: none Context: tripped/slipped Associated symptoms (after fall): denies Related Data Home Medications ?Medication ?Instructions ?Recorded ?Confirmed blood sugar diagnostic #10 ea 11/12/20 07/01/25 Previous Rx's ?Medication ?Instructions ?Recorded blood-glucose meter (FreeStyle #1 ea 11/12/20 Lite Meter kit) pen needle, diabetic 32 gauge x #400 ea 06/22/23 (Unifine Pentips Plus) insulin aspart U-100 100 unit/mL See Rx Instructions s ubcut QIDACHS 08/05/24 (3 mL) subcutaneous pen (Novolog 30 days #15 mL FlexPen U-100 Insulin aspart) lancets 28 gauge (FreeStyle #100 ea 12/05/24 Lancets) sumatriptan succinate 100 mg tablet See Rx Instruction s PO .COMPLEX 30 12/05/24 days #12 tabs blood sugar diagnostic (FreeStyle #100 ea 04/20/25 Lite Strips) semaglutide 1 mg/dose (4 mg/3 mL) 1 mg (0.75 mL) subcu t QWEEK 4 05/15/25 subcutaneous pen injector (Ozempic) weeks #3 mL Held on 07/01/25. Instructions: Doctor's Order semaglutide 2 mg/dose (8 mg/3 mL) 2 mg (0.75 mL) subcu t QWEEK 4 07/01/25 subcutaneous pen injector (Ozempic) weeks #3 mL fluoxetine 20 mg capsule 60 mg (3 x 20 mg) PO DAILY 3 0 days 08/13/25 #90 caps pregabalin 300 mg capsule 300 mg PO BID 90 days #180 c aps 08/13/25 insulin glargine 100 unit/mL (3 50 unit (0.5 mL) subcu t QPM 30 08/19/25 mL) subcutaneous pen (Lantus days #15 mL Solostar U-100 Insulin) celecoxib 200 mg capsule (Celebrex) 200 mg PO DAILY 30 days #30 caps 09/09/25 oxycodone 5 mg tablet 5 mg PO Q8H PRN severe pain (scale 09/20/25 score 7-10) #7 tabs Allergies Allergy/AdvReac Type Severity Reaction Status Date / Time baclofen (BACLOFEN) Allergy Intermediate memory Verified 09/20/25 09:57 loss/balance issues lisinopril AdvReac Intermediate ? Verified 09/20/25 09:57 increased creatinine metformin AdvReac Intermediate bad after Verified 09/20/25 09:57 taste Review of Systems Review of Systems: Constitutional : No Fever, No Chills ENT/Mouth : No sore throat, No Rhinorrhea Eyes: No Eye Pain, No Swelling, No Redness Cardiovascular : No Chest Pain, No SOB Respiratory : No Cough, No Sputum Gastrointestinal : No Nausea, No Vomiting, No Diarrhea, No abdominal Pain Genitourinary : No Dysuria, No Hematuria Musculoskeletal : + joint pain, No Myalgias, No Joint Swelling Skin : No Skin Lesions Neuro : No Weakness, No Numbness, No Headache All other systems reviewed and are negative Yes all other systems are reviewed and are negative Constitutional: Constitutional: Reports as per [facility] Past Medical History Medical History Asthma Failed back syndrome, cervical Failed back syndrome, lumbar Vitamin D deficiency HLD (hyperlipidemia) HTN (hypertension) Back pain with history of spinal surgery Spinal stenosis Degenerative disorder of bone Diabetes mellitus, type 2 Sleep apnea Arthritis Surgical History S/P excision of lipoma Hx of eye surgery History of microdiscectomy History of umbilical hernia repair History of arthroscopy of right knee History of nasal surgery History of tonsillectomy History of section History of cataract surgery History of laminectomy Hx laparoscopic cholecystectomy Family History Family History Father Substance use disorder Lung cancer Mother Substance use disorder Maternal Grandmother Colon cancer Sister Diabetes Son Malabsorption Asthma Tracheomalacia Other Mental health disorder Social History Social History (Updated 07/01/25 @ 08:13 by Collin Arteaga PA-C) Household Members: Children Household Members Other:: lives w/ 2 kids next to sister. Housing: House Housing Other:: duplex Do you presently have visiting nurse or other home services: No Alcohol intake: former Comment: PATIENT SLEEPING Patient Tobacco Use Status: Never used Tobacco Tobacco use type: Cigarette e-Cigarette/Vaping Use: Never Used Second Hand Smoke Exposure: No service: No Current occupational status: disabled Cognitive needs: No Hearing needs: No Vision needs: Yes Physical Exam Vital Signs: Vital Signs: Last Vital Signs Temp 97.7 F 09/20/25 09:56 Pulse 78 09/20/25 09:56 Resp 16 09/20/25 09:56 BP 163/72 H 09/20/25 09:56 Pulse Ox 97 09/20/25 09:56 O2 Del Method Room Air 09/20/25 09:56 BMI result Body Mass Index 43.7 Const: General: cooperative, comfortable and no acute distress Orientation/consciousness: patient oriented x3 Limitations: no limitations HEENT: Head: Yes normal to inspection, Yes normocephalic and Yes atraumatic Ears: hearing grossly normal bilaterally General nose exam: Normal external nose present Face and sinus: Yes normal facial exam Mouth: Normal oral and palatal mucosa present, oropharynx normal and moist mucous membranes Throat: Yes posterior oropharynx normal Eyes: General: appearance normal, both eyes and all related structures Eyelids: Yes eyelids normal Conjunctivae: conjunctivae normal Sclerae: sclerae normal Pupils: Equal, round and reactive pupils present EOM: EOMs intact bilaterally Neck: Neck: Yes normal visual inspection, Yes full ROM and Yes no lym phadenopathy Lymphatic: no lymphadenopathy noted Chest: Chest palpation & inspection: normal inspection of the chest Resp: Effort & Inspection: normal respiratory effort and able to speak in complete sentences Auscultation: clear to auscultation bilaterally, no crackles, no rales, no rhonchi and no wheezes Cardio: Rate: regular rate Rhythm: regular rhythm Heart sounds: S1 normal heart sound present and S2 normal heart sound present GI: Other: Abdomen is soft, nontender, nondistended. Inspection: Yes normal to inspection Skin: General skin exam: no rashes or lesions noted Trauma: no lacerations or abrasions Wounds: no wounds Neuro: General: patient oriented x3 and moves all extremities Cranial nerves: Yes Equal, round and reactive pupils present Extrem: Other: Patient with tenderness palpation along the proximal femur, as well as in her lung the left hip. No bony step-off or deformity. No ecchymosis seen. General: Yes normal to inspection Right upper extremity: normal to inspection Left upper extremity: normal to inspection Right lower e xtremity: normal to inspection Left lower extremity: normal to inspection Medications Administered Discontinued Medications Generic Name Dose Route Start Last Admin Trade Name Freq PRN Reason Stop Dose Admin Oxycodone HCl 5 mg 09/20/25 10:41 09/20/25 11:00 Oxycodone Hcl Immed Release 5 Mg Tablet PO 09/20/25 10:42 5 mg ONCE ONE Administration Medical Decision Making Medical Decision Making [facility] Narrative: This is a 55-year-old female who presents emergency department for evaluation of left hip pain status post mechanical fall which occurred 4 days ago. On arrival, vital signs reveal she is slightly hypertensive at 163/72, all other vital signs within normal limits. No head strike or LOC. Will obtain x-ray to rule out any bony abnormalities. 12:34 PM 09/20/2025 (Shani Vega PA-C): -pelvis x-ray revealing no acute findings. Patient's pain improved after receiving p.o. medication in the department. Discussed findings with patient and son at bedside. Advised to take ibuprofen as needed for pain is Tylenol gives her abdominal cramping. She also was discharged on a short course of oxycodone. She has follow-up with your PCP on Monday. Given orthopedic referral. Given strict return precautions, she understands and agrees with plan. She states that she feels safe at home with ambulation at this time. Discussed possibility of being evaluated by Physical therapy however patient declines at this time. She is ambulating with a cane with a steady gait. Patient stable for discharge. Differential Diagnosis Differential Diagnoses: The differential diagnosis associated with the presentation includes Fracture, contusion, sprain, strain Radiology Impression Discussion of test interpretation with radiology: I have reviewed the radiologist's reading. Radiologist Impression: Reason for Exam: fall CLINICAL HISTORY: fall 2 view, pelvis and left hip Comparison: CR/SR - XR HIP 2 OR MORE VIEWS RIGHT - 07/27/24 11:24 EDT Findings: No acute fracture or dislocation. Mild degenerative changes are present with osteophyte formation. The soft tissues are unremarkable. IMPRESSION: No acute findings. This document has been electronically signed by: Sammy Bee MD on 09/20/2025 11:49:50 Dictated By: Sammy Bee MD Discharge Plan Discharge Clinical Impression: Contusion of hip, left Patient Disposition: Home, Self-Care Instructions: Contusion in Adults (ED), Hip Contusion (ED) Additional Instructions: You were seen in the emergency department for left hip pain. Your x-rays do not show any broken bones. Please rest, ice, and take ibuprofen as directed. Please do not exceed 600 mg every 6 hours as this can be very detrimental to your health. Oxycodone as a strong pain medication, reserve this for severe pain only. Please be advised that this is an addictive medication. Do not drink or drive while taking this medication. We can not refill this medication through the emergency room. Please follow-up with your primary care physician on Monday. I am also prescribing you lidocaine patches, you can apply these directly to the area which can provide some relief. Do not apply ice or heat directly to the lidocaine patch. Gentle stretching, and massage can also be beneficial. You may follow-up with the treasury specialist, call on Monday to make an appointment. If any new or worsening symptoms occur including but not limited to inability to ambulate, chest pain, shortness of breath, please seek emergent care. Prescriptions: New oxycodone 5 mg tablet 5 mg PO Q8H PRN (Reason: severe pain (scale score 7-10)) Qty: 7 0RF Rx Instructions: Partial Fill upon patient request. No Action insulin aspart U-100 [Novolog FlexPen U-100 Insulin] 100 unit/mL (3 mL) insulin pen See Rx Instructions subcut QIDACHS 30 Days Qty: 15 6RF Protocol: Insulin Correction Scale Less than or equal to 110 ---- Give (units): 0 111 to 150 Give (units): 0 151 to 200 Give (units): 2 201 to 250 Give (units): 4 251 to 300 Give (units): 6 301 to 350 Give (units): 8 Greater than 350 Give (units): 10 Call MD if Blood Glucose > : 350 Rx Instructions: Up to a total daily dose of 30 units via sliding scale subcut 4 times a day before meal/bed; (DME) FreeStyle Lite Strips Strip See Rx Instructions .ROUTE .MEDSUPPLY Qty: 100 8RF Rx Instructions: 4x daily Ozempic 1 mg/dose (4 mg/3 mL) pen injector 1 mg subcut QWEEK 28 Days Qty: 3 3RF fluoxetine 20 mg capsule 60 mg PO DAILY 30 Days Qty: 90 3RF pregabalin 300 mg capsule 300 mg PO BID 90 Days Qty: 180 2RF insulin glargine [Lantus Solostar U-100 Insulin] 100 unit/mL (3 mL) insulin pen 50 unit subcut QPM 30 Days Qty: 15 6RF celecoxib [Celebrex] 200 mg capsule 200 mg PO DAILY 30 Days Qty: 30 2RF (DME) pen needle, diabetic [Unifine Pentips Plus] 32 gauge x 5/32 needle See Rx Instructions .ROUTE .COMPLEX Qty: 400 0RF Dose Instruction: USE 5 TIMES A DAY Rx Instructions: USE 5 TIMES A DAY (DME) FreeStyle Lite Strips Strip See Rx Instructions Not Applicable QID Qty: 10 Rx Instructions: As directed (DME) blood-glucose meter [FreeStyle Lite Meter] Kit See Rx Instructions .ROUTE .MEDSUPPLY Qty: 1 0RF Rx Instructions: As directed sumatriptan succinate 100 mg tablet See Rx Instructions PO .COMPLEX 30 Days Qty: 12 3RF Rx Instructions: take 1 tab at onset of headache; if no relief, may repeat 1 tab after at least 2 hrs; max = 2 tabs/24 hrs PO (DME) lancets [FreeStyle Lancets] 28 gauge misc See Rx Instructions .ROUTE .MEDSUPPLY Qty: 100 11RF Rx Instructions: 4x daily Ozempic 2 mg/dose (8 mg/3 mL) pen injector 2 mg subcut QWEEK 28 Days Qty: 3 3RF Referrals: [facility] [place], [place] [facility] [Provider Group] Interventions: ED Discharge Assessment Last Done: 09/20/25 12:35 Print Language: Indonesian
[2025-09-20] MEDS: oxyCODONE HCl Immed Release 5 MG TABLET PO (11:00)
[2025-09-20 12:35] VITALS: BP 155/60; PULSE 70; RESP 16; TEMP 36.4; O2SAT 98
== END 2025-09-20 12:36 | disposition home or self-care (01) ==
PROVIDERS: Emergency Provider Emergency Medicine; PCP Physician Assistant
DX: S70.02XA Contusion of left hip, initial encounter (principal); W19.XXXA Unspecified fall, initial encounter; Y93.K1 Activity, walking an animal; Y92.9 Unspecified place or not applicable; I10 Essential (primary) hypertension; E11.9 Type 2 diabetes mellitus without complications; E78.5 Hyperlipidemia, unspecified; J45.909 Unspecified asthma, uncomplicated
CPT/HCPCS: 73502; 99283; 99284

== ENCOUNTER → 2025-09-20 11:15 | Outpatient (BNV) | payer OTHER, SELFPAY | PROVIDERS: Emergency Provider Emergency Medicine; PCP Physician Assistant; Visit Provider Radiology Vascular & Interventional Radiology | DX: Z04.3 Encounter for examination and observation following other accident (principal) | CPT/HCPCS: 73502 ==

== ENCOUNTER 2025-10-08 08:01 | Outpatient (AMB) | payer OTHER, SELFPAY ==
--- OUTSIDE RECORDS SUMMARY | 2025-10-08 08:04 | XMS_ITS | Clinical Summary ---
Author Organization [facility] [employer] Address [address] [place] [address] [address] [place] [address] Care Team Providers Care Hand Etcher Name Role Phone Unavailable Primary Care Provider [...]
[2025-10-08 08:11] VITALS: BP 138/72; PULSE 74; TEMP 36.2; O2SAT 97; BMI 43.7
--- NOTE | 2025-10-08 08:11 | A.OFFPC_ITS ---
Vital Signs 10/08/25 08:11 Height 5 ft 1 in Weight 231 lb 4 oz BMI 43.7 BP 138/72 Blood Pressure Location Lt brachial Position Sitting Pulse 74 Pulse Source Pulse Oximeter Temp 97.1 F Temp Source Temporal Artery Scan Pulse Oximetry (%) 97 Oxygen Delivery Method Room Air Intake Visit Reasons: 3 month f/u Allergies baclofen (BACLOFEN) Allergy (Intermediate, Verified 10/08/25 08:42) memory loss/balance issues lisinopril Adverse Reaction (Intermediate, Verified 10/08/25 08:42) ? increased creatinine metformin Adverse Reaction (Intermediate, Verified 10/08/25 08:42) bad after taste Medication List - Last Reconciled 10/08/25 by Collin Arteaga PA-C blood sugar diagnostic As directed blood sugar diagnostic (FreeStyle Lite Strips) 4x daily blood-glucose meter (FreeStyle Lite Meter kit) As directed celecoxib (Celebrex) 200 mg PO DAILY 30 days fluoxetine 60 mg (3 x 20 mg) PO DAILY 30 days insulin aspart U-100 (Novolog FlexPen U-100 Insulin aspart) See Protocol Up to a total daily dose of 30 units via sliding scale subcut 4 times a day before meal/bed; 30 days insulin glargine (Lantus Solostar U-100 Insulin) 50 units (0.5 mL) subcut QPM 30 days lancets (FreeStyle Lancets) 4x daily lidocaine 5% 1 patch topical DAILY pen needle, diabetic (Unifine Pentips Plus) USE 5 TIMES A DAY pregabalin 300 mg PO BID 90 days semaglutide (Ozempic) 1 mg (0.75 mL) subcut QWEEK 4 weeks Held on 07/01/25. Instructions: Doctor's Order semaglutide (Ozempic) 2 mg (0.75 mL) subcut QWEEK 4 weeks sumatriptan succinate take 1 tab at onset of headache; if no relief, may repeat 1 tab after at least 2 hrs; max = 2 tabs/24 hrs PO 30 days Tobacco use date assessed: 10/08/25 Dental Screening Dental Screen Date: 09/22/25 HPI 3 month f/u HPI Details Patient is a 54-year-old female here today for a follow-up visit Has a past medical history significant for uncontrolled type 2 diabetes, lumbar disc disease with failed back syndrome, obstructive sleep apnea, hypertension, asthma and obesity. Concern-- > She reports a new onset of intermittent numbness in all digits of her right hand, which is sometimes accompanied by swelling. She has a history of neck surgery for a similar issue in the past. Left thumb fracture/ traumatic: The patient has a history of a left hand injury sustained while breaking up a dog fight. She recently underwent surgery to remove a plate and five screws because the hardware was working its way out and causing an infection. She was treated by an infectious disease specialist with a six-week course of Bactrim followed by another six-week course of Augmentin. She reports residual pain, bone loss resulting in a shorter finger, and decreased dexterity, noting that s he is left-handed. .. Knee osteoarthritis: The patient has a history of osteoarthritis, with significant knee pain and swelling noted. She was advised for a double knee replacement but has not undergone the procedure due to age restrictions and insurance limitations. The patient experiences difficulty walking and frequent falls due to knee instability. Has not asking for a new script for right knee brace . Obstructive sleep apnea: The patient has a history of sleep apnea, but her CPAP machine was recalled, and she has not undergone a recent sleep study. She experiences symptoms that may be exacerbated by sleep apnea, such as ear inflammation. .. Type 2 diabetes: Type 2 diabetes has been suboptimally controlled for quite awhile now. Most recent a1c-7.9 She continues on maximal dose of Ozempic and long-acting insulin dose at 50 units.. She has not been able to tolerate metformin. .. Lumbar disc disease: Was seeing pain management in the past and was on chronic pain medication though has been discharged from practice. Continues to manage her pain with Lyrica and NSAID. [facility] Medical History Asthma Failed back syndrome, cervical Failed back syndrome, lumbar Vitamin D deficiency HLD (hyperlipidemia) HTN (hypertension) Back pain with history of spinal surgery Spinal stenosis Degenerative disorder of bone Diabetes mellitus, type 2 Sleep apnea Arthritis Surgical History S/P excision of lipoma Hx of eye surgery History of microdiscectomy History of umbilical hernia repair History of arthroscopy of right knee History of nasal surgery History of tonsillectomy History of section History of cataract surgery History of laminectomy Hx laparoscopic cholecystectomy Family History Father Substance use disorder Lung cancer Mother Substance use disorder Maternal Grandmother Colon cancer Sister Diabetes Son Malabsorption Asthma Tracheomalacia Other Mental health disorder Social History Household Members: Children Household Members Other:: lives w/ 2 kids next to sister. Housing: House Housing Other:: duplex Do you presently have visiting nurse or other home services: No Alcohol intake: former Comment: PATIENT SLEEPING Patient Tobacco Use Status: Never used Tobacco Tobacco use type: Cigarette e-Cigarette/Vaping Use: Never Used Second Hand Smoke Exposure: No service: No Current occupational status: disabled Cognitive needs: No Hearing needs: No Vision needs: Yes Questionnaire PHQ-9 Over the last 2 weeks, how often have you been bothered by any of the following problems? 1. Little interest or pleasure in doing things: several days 2. Feeling down, depressed, or hopeless: several days 3. Trouble falling or staying asleep, or sleeping too much: several days 4. Feeling tired or having little energy: several days 5. Poor appetite or overeating: several days 6. Feeling bad about yourself - or that you are a failure or have let yourself or your family down: not at all 7. Trouble concentrating on things, such as reading the newspaper or watching television: not at all 8. Moving or speaking so slowly that other people could have noticed. Or the opposite - being so fidgety or restless that you have been moving around a lot more than usual: several days 9. Thoughts that you would be better off or of hurting yourself in some way: not at all Total score: 6 Depression Screening Interpretation: Positive Depression Screening Follow-up: Existing condition Depression Screening Done: Yes Source: Developed by Drs. Steven Cuevas, Cheri Wood, Ferdinand Villasenor and colleagues, with an educational rios from [facility]. Thrive Questionnaire Date Thrive assessed: 07/01/25 I am a: Patient What is your living situation today?: I have a steady place to live Within the past 12 months, did the food you bought not last and you didn't have the money to get more?: Never true Within the past 12 months, did you worry whether your food would run out before you got money to buy more?: Never true Do you have trouble paying for medicines?: No Do you have trouble getting transportation to medical appointments?: No Do you have trouble paying your heating and electricity bill?: No Do you have trouble taking care of your child, family member or friend?: No Do you have trouble with day-to-day activities such as bathing, preparing meals, shopping, managing finances, etc.?: No Are you currently unemployed and looking for a job?: No Are you interested in more education?: No Currently or been in a relationship where the following occur: No concerns reported THRIVE Score: 0 AUDIT C Alcohol Use Questionnaire (AUDIT-C) 1. How often do you have a drink containing alcohol?: Never 3. How often do you have six or more drinks on one occasion?: Never Total Score: 0 SANJUANA-7 AMB Questionnaire SANJUANA-7 Date SANJUANA - 7 assessed: 07/01/25 Feeling nervous, anxious, or on edge: 0 = Not at all Not being able to stop or control worryin = Not at all Worrying too much about different things: 0 = Not at all Trouble relaxin = Not at all Being so restless that it is hard to sit still: 0 = Not at all Becoming easily annoyed or irritable: 1 = Several days Feeling afraid as if something awful might happen: 0 = Not at all Total SANJUANA-7 score (0-4 normal; 5-9 mild; 10-14 moderate; 15-21 severe): 1 Source: Developed by Drs. Steven Cuevas, Cheri Wood, Ferdinand Villasenor and colleagues, with an educational rios from [facility]. Review of Systems Const Denies headache(s) Eyes Denies loss of vision ENT Denies vertigo, Denies dizziness, Denies headache(s) and Denies sore throat Card Denies chest pain, Denies leg edema and Denies lightheadedness Resp Denies cough, Denies hemoptysis and Denies wheezing GI Denies abdominal pain, Denies melena, Denies constipation, Denies diarrhea and Denies vomiting Denies urinary frequency, Denies dysuria and Denies urinary urgency Musc Denies arthralgias, Denies joint swelling, Denies numbness and Denies tingling Neuro Denies Abnormal speech present, Denies behavioral changes, Denies vertigo, Denies dizziness, Denies headache(s), Denies loss of vision, Denies memory loss, Denies numbness and Denies tingling Psych Denies anxiety, Denies behavioral changes, Denies depression, Denies memory loss and Denies panic attacks Frank/Lymph Denies easy bleeding and Denies easy bruising Aller/Immun Denies wheezing Physical exam (Primary Care) Vital Signs: Last Vital Signs Temp 97.1 F 10/08/25 08:11 Pulse 74 10/08/25 08:11 BP 138/72 10/08/25 08:11 Pulse Ox 97 10/08/25 08:11 Oxygen Delivery Method Room Air 10/08/25 08:11 BMI result Body Mass Index 43.7 BMI Assessment/Plan discussion: High BMI High, discussed plan: lifestyle, weight reduction, dietary and physical activity Tobacco/Smoking Status: Tobacco use Status Tobacco use date assessed 10/08/25 10/08/25 08:14 Patient Tobacco Use Status Never used Tobacco 10/08/25 08:14 Tobacco use type Cigarette 10/08/25 08:14 e-Cigarette/Vaping Use Never Used 10/08/25 08:14 PHQ-9: PHQ-9 Score PHQ-9: Total score 6 10/14/25 15:46 Depression Screening Interpretation: Positive Depression Screening Follow-up: Existing condition Thrive Assessment: Date of Thrive Assessment Date Thrive assessed 07/01/25 10/08/25 08:14 Currently or been in a relationship where the following occur: No concerns reported Const General: healthy appearing, no acute distress, alert and awake Nutritional Appearance: well nourished Orientation/consciousness: oriented to person, oriented to place and oriented to time HENMT Ears: TM's normal bilaterally General nose exam: Normal nasal mucous membranes and turbinates present Eyes Conjunctivae: conjunctivae normal Sclerae: sclerae normal Pupils: Equal, round and reactive pupils present Neck Neck: Yes no lymphadenopathy and Yes no JVD Thyroid: Thyroid normal Carotids: no bruits Resp Effort & Inspection: normal respiratory effort and not tachypneic Auscultation: no crackles, no rales, no rhonchi and no wheezes Cardio Rate: regular rate Rhythm: regular rhythm Heart sounds: no murmurs and normal S1 and S2 GI Palpation (GI): Soft to palpation, nontender, no hepatomegaly and no splenomegaly Auscultation: normal bowel sounds Skin General skin exam: no rashes or lesions noted and dry skin Neuro General: oriented to person, oriented to place and oriented to time Cranial nerves: Yes Equal, round and reactive pupils present Speech: No Abnormal speech present Gait exam (Neuro): Normal gait present Motor exam (neuro): no tremor noted Extrem Right upper extremity: full ROM Left upper extremity: full ROM Right lower extremity: full ROM; no edema Left lower extremity: full ROM; no edema Psych Mental Status: mental status grossly normal Speech and movement: Normal speech and movement present Affect: normal affect Attitude: cooperative Thought process: Normal thought process present Coding Level of Care Code Est Pt Level 4 (29243) Diagnoses Type 2 diabetes mellitus with hyperglycemia, with long-term current use of insulin E11.65; Z79.4 Diabetes mellitus complication status: with hyperglycemia Diabetes mellitus 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 Closed nondisplaced fracture of proximal phalanx of left thumb with delayed healing, subsequent encounter S62.515G Encounter type: subsequent encounter Fracture alignment: nondisplaced Fracture healing: with delayed healing Phalanx: proximal Hyperlipidemia, unspecified hyperlipidemia type E78.5 Hyperlipidemia type: unspecified Hypertension, unspecified type I10 Hypertension type: unspecified Class 3 obesity E66.813 Primary osteoarthritis of right knee M17.11 Osteoarthritis type: primary Right hand paresthesia R20.2 Assessment & Plan Assessment & Plan (1) Diabetes mellitus, type 2: Code(s): E11.9 - Type 2 diabetes mellitus without complications Category: Medical Qualifiers: Diabetes mellitus complication status: with hyperglycemia 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 Most recent A1c is 7.9. We have increased her Lantus to 50 units and she is on optimal dose of Ozempic. She continues on Lantus and preprandial insulin. Goal A1c is to be below 7.0 (2) Fracture of thumb, left, closed: Code(s): S62.502A - Fracture of unspecified phalanx of left thumb, initial encounter for closed fracture Category: Medical Qualifiers: Encounter type: subsequent encounter Fracture alignment: nondisplaced Fracture healing: with delayed healing Phalanx: proximal Qualified Code(s): S62.515G - Nondisplaced fracture of proximal phalanx of left thumb, subsequent encounter for fracture with delayed healing Plan: Patient status post revision surgery of her left thumb, she is now considering new surgery for better dexterity. She is also considering occupational therapy (3) HLD (hyperlipidemia): Code(s): E78.5 - Hyperlipidemia, unspecified Category: Medical Qualifiers: Hyperlipidemia type: unspecified Qualified Code(s): E78.5 - Hyperlipidemia, unspecified Plan: Patient's most recent lipid panel showing good control over total cholesterol and LDL. Triglycerides remains slightly elevated. Will continue working on dietary in lifestyle management. (4) HTN (hypertension): Code(s): I10 - Essential (primary) hypertension Category: Medical Qualifiers: Hypertension type: unspecified Qualified Code(s): I10 - Essential (primary) hypertension Plan: Patient's blood pressure acceptable today in office. W patient stable to control her blood pressure without medication at this time (5) Class 3 obesity: Code(s): E66.813 - Obesity, class 3 Category: Medical Plan: Patient does understand her BMI is over 40 will work on being more physically active and adapting to better eating habits to reduce her weight. Unfortunately GLP 1 this have not help her lose weight. (6) Osteoarthritis of right knee: Code(s): M17.11 - Unilateral primary osteoarthritis, right knee Category: Medical Qualifiers: Osteoarthritis type: primary Qualified Code(s): M17.11 - Unilateral primary osteoarthritis, right knee Plan: Patient is interested in a new right knee brace to help stabilize her right knee. She has a history of moderate-severe osteoarthritis of the right knee. She anticipates a right knee replacement in near future (7) Right hand paresthesia: Code(s): R20.2 - Paresthesia of skin Category: Medical Plan: To investigate her right-hand numbness, a referral will be placed for a nerve conduction study to evaluate for conditions such as carpal tunnel syndrome. The option of occupational therapy to improve dexterity and fine motor skills in her left hand has been discussed, and she is aware it is available if she chooses. Orders: Orders NE nerve conduction velocity 10/08/25 R20.2 - Paresthesia of skin NE electromyogram (EMG) 10/08/25 R20.2 - Paresthesia of skin Referrals Ophthalmology Referral E11.65 - Type 2 diabetes mellitus with hyperglycemia, Z79.4 - [facility] (current) use of insulin Medications: New [RIGHT KNEE BRACE WITH LATERAL AND MEDIAL SUPPORT] As directed 1 ea 0RF M17.11 - Unilateral primary osteoarthritis, right knee
== END 2025-10-08 09:00 | disposition home or self-care (01) ==
LOC: HO.HMCH 08:02
PROVIDERS: PCP Physician Assistant; Visit Provider Physician Assistant
DX: E11.65 Type 2 diabetes mellitus with hyperglycemia (principal); Z79.4 Long term (current) use of insulin; E66.813 Obesity, class 3; Z68.41 Body mass index [BMI] 40.0-44.9, adult; S62.51 Fracture of proximal phalanx of thumb; E78.5 Hyperlipidemia, unspecified; I10 Essential (primary) hypertension; M17.11 Unilateral primary osteoarthritis, right knee; R20.2 Paresthesia of skin

== ENCOUNTER → 2025-10-08 08:01 | Outpatient (BNVA) | payer OTHER, SELFPAY | PROVIDERS: PCP Physician Assistant; Visit Provider Physician Assistant | DX: E11.65 Type 2 diabetes mellitus with hyperglycemia (principal); S62.51 Fracture of proximal phalanx of thumb; E78.5 Hyperlipidemia, unspecified; I10 Essential (primary) hypertension; E66.813 Obesity, class 3; M17.11 Unilateral primary osteoarthritis, right knee; R20.2 Paresthesia of skin | CPT/HCPCS: 99212 ==